=== PATIENT | male | born 1960 | race Caucasian/White ===

== ENCOUNTER 2017-05-25 19:41 | Inpatient (IN) ==
[2017-05-25] MEDS ORDERED: 0.9 % Sodium Chloride 1,000 ML IVC ONE ×2 (21:26→21:27)
[2017-05-25] MEDS ORDERED: Metoclopramide 10 MG/2 ML VIAL IVP ONE (21:27)
--- NOTE | 2017-05-25 21:39 | Emergency Department Note ---
Disposition Clinical Impression: Hypertensive emergency, Elevated troponin, Hypokalemia Headache Qualifiers: Headache type: unspecified Headache chronicity pattern: acute headache Intractability: not intractable Qualified Code(s): R51 - Headache Disposition: Admitted As Inpatient Condition: Fair Time of Disposition: 23:22 General Adult HPI - General Chief complaint: ED Headache Stated complaint: Headache x 2wks Time Seen by Provider: 05/25/17 21:02 Source: patient Limitations: no limitations Nursing Notes Reviewed: Yes Vital Signs Reviewed: Yes - History of Present Illness HPI Narrative: 57-year-old male past medical history of ischemic stroke, CAD, hypertension, chronic kidney disease, cataracts, type 2 diabetes mellitus, COPD this is an emergency department with a two-week history of headaches. Patient describes this as pain behind both of his eyes. Patient states is not typical for his usual headaches. Patient is not tried anything to make it feel better. Patient came in today because it started worsening last night. Patient is currently not taking any blood thinning medications. However, he is on Plavix. Patient reports having vision issues after her previous ischemic stroke. He states that his vision has not worsened over the last couple weeks. Pain Scale: 8 - Related Data Home Medications Medication Instructions Recorded Confirmed Amlodipine Besylate 10 mg PO DAILY 03/29/16 07/20/16 Atorvastatin [Lipitor] 40 mg PO HS 03/29/16 07/20/16 Carvedilol 12.5 mg PO BID 03/29/16 07/20/16 Chlorthalidone 25 mg PO DAILY 03/29/16 07/20/16 Furosemide [Lasix] 40 mg PO DAILY 03/29/16 07/20/16 Hydralazine HCl 25 mg PO BID 03/29/16 07/20/16 Losartan Potassium [Cozaar] 100 mg PO DAILY 03/29/16 07/20/16 Potassium Chloride [Klor-Con 20 meq PO BID 03/29/16 07/20/16 Sprinkle] Spironolactone [Aldactone] 50 mg PO DAILY 03/29/16 07/20/16 Citalopram [CeleXA] 40 mg PO DAILY 07/20/16 07/20/16 Fenofibrate [Lofibra] 160 mg PO DAILY 07/20/16 07/20/16 Allergies Allergy/AdvReac Type Severity Reaction Status Date / Time Penicillins AdvReac Hives Verified 04/04/15 16:43 All systems ED: reviewed and negative except as stated. Review of Systems: As Per HPI Eyes: Reports: eye pain Cardiovascular: Denies: chest pain, dyspnea on exertion Respiratory: Denies: dyspnea Gastrointestinal: Denies: nausea, vomiting Genitourinary: Denies: hematuria Integumentary: Denies: rash Neurological: Reports: headache. Denies: numbness, paresthesias Past Medical History - Past Medical History Medical history: Reports: coronary artery disease, CVA, diabetes, hyperlipidemia , hypertension, myocardial infarction, renal disease, other Surgical history: Reports: cataract Psychiatric history: Reports: no psych history - Social History Smoking Status: Former smoker Smokeless Tobacco Status: No Alcohol use: Reports: none Drug use: Reports: none Physical Exam General: Well Appearing obese 57-year-old male, in no acute distress Head: autraumatic, EOMI, no conjuncitval pallor, no scleral icterus,, no tenderness of the temporal arteries, intraocular pressures and left eye 25, right eye 22 Mouth: oral mucous membranes moist Neck: neck soft, trachea midline Chest:: Equal chest wall rise Lungs: Normal lungs sounds bilaterally, no wheezes, no respiratory distress Heart: normal heart sounds, normal rate and rhythm, Abdomen: soft, obese, non-tender, no rigidity, no guarding, no rebdound tenderness Lower Extremities: no pedal edema, calves non-tender Integumentary: Skin warm, dry, and intact Neuro: Alert and oriented to person, place, time, cranial nerves II through XII grossly intact, no pronator drift, strength 5 out of 5 in upper and lower shoulders bilaterally, sensation intact throughout. Psych: normal affect, normal mood - General Limitations: no limitations General appearance: alert, in no apparent distress Course Vital Signs Temperature 97.8 F 05/25/17 19:44 Pulse Rate 76 05/25/17 19:44 Respiratory Rate 21 05/25/17 19:44 Blood Pressure 222/94 05/25/17 19:44 O2 Sat by Pulse Oximetry 90 05/25/17 19:44 Temperature 97.8 F 05/25/17 19:44 Pulse Rate 61 05/25/17 22:41 Respiratory Rate 18 05/25/17 23:25 Blood Pressure 193/105 05/25/17 23:25 O2 Sat by Pulse Oximetry 92 05/25/17 22:41 Oxygen Delivery Oxygen Delivery Room Air Medical Decision Making - MDM Narrative Medical decision making narrative: 57-year-old male presents to the emergency department hypertensive and with a headache. Echocardiogram did not reveal any ischemic changes, but did reveal some nonspecific changes. Patient initial blood pressure was 222/94. There was fear that this patient may have had an ischemic stroke so we obtained a CT scan of the head prior to lowering blood pressure. We also searched for end organ dysfunction. There was an elevated troponin of 0.10. He did not have any acute ischemic ST changes and denied any chest pain, pressure, tightness, shortness of breath. Patient had a creatinine of 1.86. This is actually a little bit improved from his baseline. Patient was not having any chest pain, pressure, tightness, dyspnea. CT scan did not reveal any intracranial abnormality. We started Lopressor 5 mg IV and his blood pressure dropped to 193 /105. Migraine cocktail was provided for the patient to help relieve his symptoms of headache. His headache resolved completely. Intraocular pressures were obtained to rule out acute angle closure glaucoma in these were elevated, but only mildly. There was no evidence of temporal arteritis as the patient's temporal arteries were not tender to palpation. I discussed admission with the hospitalist Dr. Cruz, and he agreed to accept the patient. He asked that we start a nicardipine drip to further manage this patient's hypertensive emergency and to keep his systolic goal between 150 and 180 mmHg.. We have done this and we also will address this patient's hypokalemia with 40 mEq of potassium. I discussed the plan of admission with the patient, daughter, and . They agree with the plan. Patient was hemodynamically stable with an improved blood pressure at time of admission. Patient's oxygen saturation is around 92% on room air. Patient denied having any shortness of breath. Patient states that he has been a smoker his entire life. I think this may be his baseline oxygen saturation. Head CT 05/25/17 21:19 IMPRESSION: No acute intracranial abnormality. D/ / Natasha Faustin MD / Natasha Faustin MD Interpreting Provider: Natasha Faustin MD Vital Signs Temperature 97.8 F 05/25/17 19:44 Pulse Rate 76 05/25/17 19:44 Respiratory Rate 21 05/25/17 19:44 Blood Pressure 222/94 05/25/17 19:44 O2 Sat by Pulse Oximetry 90 05/25/17 19:44 Temperature 97.8 F 05/25/17 19:44 Pulse Rate 61 05/25/17 22:41 Respiratory Rate 18 05/25/17 23:25 Blood Pressure 193/105 05/25/17 23:25 O2 Sat by Pulse Oximetry 92 05/25/17 22:41 Oxygen Delivery Oxygen Delivery Room Air - Medical Records Medical records reviewed: Yes I reviewed the patient's medical records. - Lab Data Lab results reviewed: Yes I reviewed the patient's lab results. Result diagrams: 05/25/17 21:33 05/25/17 21:33 Lab Results 05/25/17 05/25/17 05/25/17 Range/Units 21:33 21:33 21:33 WBC 6.1 (4.3-11.1) K/mcL RBC 4.75 (4.19-5.50) M/mcL Hgb 13.1 (12.9-16.9) g/dL Hct 38.4 (37.5-50.1) % MCV 80.8 L (83.0-100.0) fL MCH 27.6 L (28.0-33.3) pg MCHC 34.1 (31.6-35.5) g/dL RDW 14.3 (11.5-14.5) % Plt Count 177 (140-400) K/mcL MPV 9.7 (9.4-12.4) fL Immature Gran % 0.8 (0-4) % Seg Neutrophils % 65.3 % Lymphocytes % 22.3 % Monocytes % 8.4 % Eosinophils % 2.5 % Basophils % 0.7 % Neutrophils # 4.0 (1.6-8.9) K/mcL Lymphocytes # 1.4 (0.6-4.6) K/mcL Monocytes # 0.5 (0.0-1.3) K/mcL Eosinophils # 0.2 (0.0-0.6) K/mcL Basophils # 0.0 (0.0-0.2) K/mcL PT 9.6 (9.4-12.1) Seconds INR 0.9 APTT 27.4 (26.0-36.0) Seconds Sodium 138 (136-145) mEq/L Potassium 3.0 L (3.5-4.5) mEq/L Chloride 96 L (98-109) mEq/L Carbon Dioxide 31 H (19-29) mEq/L BUN 21 (8-26) mg/dL Creatinine 1.86 H (0.72-1.25) mg/dL Est GFR ( Amer) 46 L (> 60) Est GFR (Non-Af Amer) 38 L (> 60) BUN/Creatinine Ratio 11 (6-26) Glucose 342 H (70-99) mg/dL Calculated Osmolality 303 H (280-300) Calcium 9.3 (8.6-10.8) mg/dL Troponin I (0-0.03) ng/mL 05/25/17 Range/Units 21:33 WBC (4.3-11.1) K/mcL RBC (4.19-5.50) M/mcL Hgb (12.9-16.9) g/dL Hct (37.5-50.1) % MCV (83.0-100.0) fL MCH (28.0-33.3) pg MCHC (31.6-35.5) g/dL RDW (11.5-14.5) % Plt Count (140-400) K/mcL MPV (9.4-12.4) fL Immature Gran % (0-4) % Seg Neutrophils % % Lymphocytes % % Monocytes % % Eosinophils % % Basophils % % Neutrophils # (1.6-8.9) K/mcL Lymphocytes # (0.6-4.6) K/mcL Monocytes # (0.0-1.3) K/mcL Eosinophils # (0.0-0.6) K/mcL Basophils # (0.0-0.2) K/mcL PT (9.4-12.1) Seconds INR APTT (26.0-36.0) Seconds Sodium (136-145) mEq/L Potassium (3.5-4.5) mEq/L Chloride (98-109) mEq/L Carbon Dioxide (19-29) mEq/L BUN (8-26) mg/dL Creatinine (0.72-1.25) mg/dL Est GFR ( Amer) (> 60) Est GFR (Non-Af Amer) (> 60) BUN/Creatinine Ratio (6-26) Glucose (70-99) mg/dL Calculated Osmolality (280-300) Calcium (8.6-10.8) mg/dL Troponin I 0.10 H* (0-0.03) ng/mL - Radiology Data Radiology results reviewed: Yes I reviewed the patient's radiology results. - EKG Data EKG #1 EKG attestation: Yes I reviewed and interpreted this EKG. EKG results narrative: 21:28 Ventricular rate 66 bpm, OH interval 195 mg seconds, QRS duration 100 106, QT 391 ms, QTC 404 ms, left axis deviation. Sinus rhythm with a ventricular rate of 66 bpm. There is some ST segment changes on this electrocardiogram that are different from ones performed on May 14, 2016.
[2017-05-25 21:45] LABS: Basophils % 0.7 %; Eosinophils # 0.2 K/mcL (0.0-0.6); Eosinophils % 2.5 %; Hematocrit 38.4 % (37.5-50.1); Hemoglobin 13.1 g/dL (12.9-16.9); Immature Granulocytes % 0.8 % (0-4); Lymphocytes # 1.4 K/mcL (0.6-4.6); Lymphocytes % 22.3 %; Mean Corpuscular HGB Conc 34.1 g/dL (31.6-35.5); Mean Corpuscular Hemoglobin 27.6 pg (28.0-33.3); Mean Corpuscular Volume 80.8 fL (83.0-100.0); Mean Platelet Volume 9.7 fL (9.4-12.4); Monocytes # 0.5 K/mcL (0.0-1.3); Monocytes % 8.4 %; Platelet Count 177 K/mcL (140-400); Red Blood Count 4.75 M/mcL (4.19-5.50); Red Cell Distribution Width 14.3 % (11.5-14.5); Segmented Neutrophils % 65.3 %
[2017-05-25 21:48] LABS: INR 0.9; Prothrombin Time 9.6 Seconds (9.4-12.1)
[2017-05-25 21:50] LABS: Activated Partial Thrombo Time 27.4 Seconds (26.0-36.0)
[2017-05-25 21:54] LABS: Calcium 9.3 mg/dL (8.6-10.8)
[2017-05-25] MEDS ORDERED: Tetracaine 0.5% OPTH 80 DROP/4 ML BOTTLE LEFT EYE ONE (21:56)
--- NOTE | 2017-05-25 22:02 | Emergency Department Note ---
START Narrative - START START: I examined this patient and my medical decision-making was reviewed with the Resident Physician. I agree with the documented findings, disposition and treatment plan as described except to the extent set forth below. 57 year old male presents ot the ED with complaints of headache and HX of previous stroke and states that his headache is located behind his right eye and has known defeicts from his previous stroke that has left him with peripheral vision losss and state that his vision is becoming more blurry. Patinet states that he does have a hsitory fo HTN and that he typically runs 170 /90s. We will do a IOP on aptient to rule out acute angle glaucoma in additio nto cardiopylmonary lans and EKG/CXR with CTA brain for evalaution of his vasculture.
[2017-05-25] MEDS ORDERED: *HR* Metoprolol 5 MG/5 ML VIAL IVP ONE (22:30)
[2017-05-25] MEDS ORDERED: Potassium Citrate 10 MEQ TABLET.ER PO ONE (23:11)
[2017-05-25] MEDS ORDERED: niCARdipine 40 MG/200 ML MLS IVC SCH (23:15)
[2017-05-26] MEDS ORDERED: *HR* Morphine 2 MG/ML SYRINGE IVP PRN (03:37)
[2017-05-26] MEDS ORDERED: Ondansetron 4 MG/2 ML VIAL IVP PRN (03:37)
[2017-05-26] MEDS ORDERED: Naloxone 0.4 MG/ML INJ IVP PRN (03:37)
--- NOTE | 2017-05-26 04:06 | Internal Med History&Physical ---
<Bruno Mcdaniel - Last Filed: 05/26/17 03:57> Date of Encounter: 05/26/17 Time of Encounter: 03:57 Assessment and Plan (1) Hypertensive emergency Current visit: Yes Status: Acute - Initial BP of 222/94 in ED - Given labetalol 5 mg IV in ED total - Start on nicardipine gtt upon arrival to floors - Goal BP of 160-180 systolic today to prevent ischemia. - nicadipine gtt turned off around 0400 due to BP being in 150s. Will monitor and resume medications as necessary. - Consult to nephrology for hypertensive medication management. Pt on multiple HTN medications as outpatient, reports compliance. - Renal US in 2016 shows CKD with no apparent CARLOS. (2) Elevated troponin Current visit: Yes Status: Acute - Troponin elevated in ED at 0.10 - Likely secondary to demand ischemia in the setting of CKD - Will trend troponins, echo in AM. - History of NH with [facility] [place] in 04/07. EKG unremarkable. (3) Headache Current visit: Yes Status: Acute - Bilateral CHAPMAN likely secondary to hypertension. - Relieved in ED with migraine cocktail. - Continue pain control and lower BP as above. Qualifiers: Headache type: unspecified Headache chronicity pattern: acute headache Intractability: intractable Qualified Code(s): R51 - Headache (4) Hypokalemia Current visit: Yes Status: Acute - K of 3.0 in ED - Replenished in ED with 40 mEq. - Replace as necessary pending AM labs. (5) DVT prophylaxis Current visit: Yes Status: Acute - Holding anticoagulation while hypertensive for risk of CVA - SCDs. Internal Medicine - H&P: HPI Chief complaint: Eye pain Admitted From: Emergency Dept Plans for Post Hospital Care: Home History of present illness: Mr. Frederick is a 57 year old male with PMHx of CVA with residual right eye blurriness, NH, CKD, HTN presents to ED with a complaint of headache, blurry vision for the past couple weeks. He states that he has residual right sided blurriness from CVA however his experiences increased "eye strain" in the evenings, worse when he spends long days at the computer. He has also noticed a "pins and needles" feeling behind both his eyes in this time as well. These episodes self resolve when after a short time. He also admits to some mild nausea. He takes tylenol PM with some relief. He denies any symptoms of CP, SOB , change in bowel habits, recent illness, vomiting, increased LE edema. In the ED, he was noticed to be hypertensive at 222/94 despite being compliant on medications. Labs were also significant for Troponon 0.10 with no EKG changes , elevated creatinine however at his baseline, K of 3.0 and glucose of 300. CT head was done for concern of CVA, showed no acute process. Past Med Surg Social Fam HX - Past Medical History Medical history: coronary artery disease, CVA, diabetes, hyperlipidemia, hypertension, myocardial infarction, renal disease, TIA, other Psychiatric history: no psych history - Past Surgical History Surgical History: cataract - Social History Smoking Status: Former smoker Smokeless Tobacco Status: No Alcohol use: none Drug use: none - Family History Brother Adopted: No Family Member Ethnicity: Non- Living Status: Still Living Hx Family Cardiac Disorders: Yes (open heart, valves, HTN, NH, Hyperlipidemia) Hx Family Respiratory Disorders: No Hx Family Cancer: Yes (Hodgkins) Hx Family GI Disorders: No Hx Family Endocrine Disorder: Yes Hx Family Neuromuscular Disorders: No Hx Family Neurologic Disorders: Yes (CVA) Hx Family HEENT Disorders: Yes (Blindness) Hx Family Autoimmune Disorders: No Internal Medicine - H&P: Meds Amlodipine Besylate 10 mg PO DAILY 03/29/16 [History] Atorvastatin [Lipitor] 40 mg PO HS 03/29/16 [History] Carvedilol 12.5 mg PO BID 03/29/16 [History] Chlorthalidone 25 mg PO DAILY 03/29/16 [History] Furosemide [Lasix] 40 mg PO DAILY 03/29/16 [History] Hydralazine HCl 25 mg PO BID 03/29/16 [History] Losartan Potassium [Cozaar] 100 mg PO DAILY 03/29/16 [History] Potassium Chloride [Klor-Con Sprinkle] 20 meq PO BID 03/29/16 [History] Spironolactone [Aldactone] 50 mg PO DAILY 03/29/16 [History] Citalopram [CeleXA] 40 mg PO DAILY 07/20/16 [History] Fenofibrate [Lofibra] 160 mg PO DAILY 07/20/16 [History] Aspirin [Lo-Dose Aspirin EC] 81 mg PO DAILY 05/26/17 [History] 3 Allergy/AdvReac Type Severity Reaction Status Date / Time Penicillins AdvReac Hives Verified 04/04/15 16:43 All Systems PM: A 10-system review of systems was performed and is negative for pertinent findings except as documented above in the HPI. - Constitutional Constitutional: no chills, no fatigue, no fever(s), no lethargy, no weakness - EENT Eyes: blurry vision, change in vision, no pain, no photophobia - Cardiovascular Cardiovascular ROS IM: no chest pain, no diaphoresis, no dyspnea, no dyspnea on exertion, no edema, no lightheadedness, no palpitations, no syncope - Respiratory Respiratory: no cough, no dyspnea, no dyspnea on exertion, no wheezing - Gastrointestinal Gastrointestinal: no abdominal pain, no change in bowel habits, no constipation , no diarrhea, no hematochezia, no melena, no nausea, no vomiting - Musculoskeletal Musculoskeletal ROS IM: no muscle weakness, no numbness, no tingling - Neurological Neurological ROS: headache(s), no dizziness, no focal weakness, no numbness, no tingling, no weakness - Constitutional Vitals: Temp Pulse Resp BP Pulse Ox 97.8 F 74 18 159/96 92 05/25/17 19:44 05/26/17 03:48 05/25/17 23:25 05/26/17 03:48 05/25/17 22:41 Exam: Gen.: Vitals noted. No acute distress. AAOx3 HEENT: PERRL/EOMI, oropharynx clear, Normocephalic, atraumatic, MMM Cardiac: RRR, no murmur, +S1/S2 Pulmonary: CTA bilaterally, no wheezes, rales or rhonchi, equal chest expansion Abdomen: soft, nontender, BS noted, no guarding MSK: ROM intact, no joint swelling noted Extremities: no BLE edema, nontender calf, no cyanosis or clubbing Neuro: A&Ox3, moves all extremities, no focal deficits. NIH 0. Sensation intact. CN II-XII grossly intact bilaterally. Psych: Appropriate mood and behavior Internal Med - H&P Results - Labs CBC & Chem 7: 05/25/17 21:33 05/25/17 21:33 <Herbert Wesley - Last Filed: 05/26/17 05:32> Date of Encounter: 05/26/17 Time of Encounter: 05:11 Past Med Surg Social Fam HX - Past Medical History Attestation: Yes The following information was validated with the patient. Source: patient, old records reviewed Medical history: coronary artery disease, CVA - Past Surgical History Surgical History: cataract - Constitutional Constitutional: no chills, no fever(s) - EENT Eyes: blurry vision, change in vision Ears: no ear pain, no tinnitus Nose, mouth and throat: no nasal congestion, no sinus pressure, no sore throat - Cardiovascular Cardiovascular ROS IM: no chest pain, no dyspnea, no dyspnea on exertion, no edema - Respiratory Respiratory: no cough, no dyspnea, no hemoptysis - Gastrointestinal Gastrointestinal: no abdominal pain, no diarrhea, no nausea, no vomiting - Genitourinary Genitourinary ROS male: no dysuria, no flank pain, no hematuria - Integumentary Integumentary IM: no rash, no jaundice - Neurological Neurological ROS: headache(s), no dizziness, no focal weakness, no frequent falls, no numbness, no tingling, no weakness - Psychiatric Psychiatric: no anxiety, no depression - Endocrine Endocrine IM: no polydipsia, no polyuria - Hematologic/Lymphatic Hematologic/Lymphatic: no easy bruising, no lymphadenopathy - Allergic/Immunologic Allergic/Immunologic: no wheezing, no GI upset with certain foods - Constitutional Vitals: Temp Pulse Resp BP Pulse Ox 97.8 F 74 18 159/96 92 05/25/17 19:44 05/26/17 03:48 05/25/17 23:25 05/26/17 03:48 05/25/17 22:41 General appearance: Present: cooperative, A&O X 3, pleasant, no acute distress - Head Head exam: Present: atraumatic, normal inspection - Eye Eye exam: Present: EOMI, normal appearance, PERRL. Absent: scleral icterus Pupils: Present: normal accommodation - ENT ENT exam: Present: mucous membranes dry, normal exam - Neck Neck exam general surgery: Present: full ROM, supple. Absent: tenderness, nuchal rigidity - Expanded Neck Exam Neck exam: Absent: carotid bruit - Respiratory Respiratory exam: Present: CTAB. Absent: chest wall tenderness, rales, respiratory distress, rhonchi, wheezes - Cardiovascular Cardiovascular exam: Present: distant heart sounds, RRR, +S1, +S2. Absent: diastolic murmur, systolic murmur - GI/Abdominal GI/Abdominal exam: Present: normal bowel sounds, soft. Absent: hepatomegaly, mass, splenomegaly - Extremities Exam Extremities exam: Present: full ROM, warm, radial pulses palpable and symmetrical. Absent: calf tenderness, pedal edema, tenderness - Back Exam Back exam: Absent: CVA tenderness (L), CVA tenderness (R) - Neurological Exam Neurological exam: Present: alert, oriented X3, no focal deficits - Psychiatric Psychiatric exam: Present: normal affect, normal mood - Skin Skin exam: Present: dry, warm. Absent: rash Internal Med - H&P Results - Labs CBC & Chem 7: 05/26/17 04:49 05/25/17 21:33 Labs: Short CBC 05/26/17 Range/Units 04:49 WBC 7.0 (4.3-11.1) K/mcL Hgb 14.2 (12.9-16.9) g/dL Hct 41.4 (37.5-50.1) % Plt Count 198 (140-400) K/mcL Neutrophils # 5.0 (1.6-8.9) K/mcL - EKG Data -: EKG Interpreted by Myself - EKG Data Prior EKG available for review: yes When compared to previous EKG: there are significant changes EKG comments: 05/26/17 05:14 Sinus rhythm with some lateral ST-T flattening concerning for possible ischemia - Attending Attestation I discussed the patient [place], PMH, ROS, lab data, and exam findings with Dr. Mcdaniel. I then saw and examined patient independently as well. I called earlier and asked RN to stop Nicardipine drip as his SBP was down to 140's. I asked that his SBP be kept around 160-180. Currently, his BP is 154/80's. Patient states he feels much better and has minimal residual headache now compared to when he came to the ER. He has no CP or SOB. His vision is almost back to baseline. I reviewed his EKG and am concerned he has some subtle ischemic changes laterally. He denies any anginal symptoms, and the EKG changes along with troponin elevation are likely due to HTN emergency. We will trend troponins and check ECHO. I agree with nephrology consult. He may need cardiology consultation as well should his troponin continue to climb. I will also order a chest xray as I do not see that one was performed. Other than my comments above and noted exam findings, I agree with Dr. Mcdaniel's assessment and plan.
[2017-05-26] MEDS ORDERED: Dextrose Gel 15 GM PO PRN ×2 (04:08)
[2017-05-26] MEDS ORDERED: D5% in Water 1,000 ML IVC PRN (04:08)
[2017-05-26] MEDS ORDERED: *HR* Dextrose 50 % in Water (Syg) 50 ML SYRINGE IVP PRN (04:08)
[2017-05-26 04:59] LABS: Hematocrit 41.4 % (37.5-50.1); Hemoglobin 14.2 g/dL (12.9-16.9); Immature Granulocytes % 0.7 % (0-4); Lymphocytes % 18.9 %; Mean Corpuscular HGB Conc 34.3 g/dL (31.6-35.5); Mean Corpuscular Hemoglobin 27.5 pg (28.0-33.3); Mean Corpuscular Volume 80.2 fL (83.0-100.0); Mean Platelet Volume 10.1 fL (9.4-12.4); Platelet Count 198 K/mcL (140-400); Red Blood Count 5.16 M/mcL (4.19-5.50); Red Cell Distribution Width 14.4 % (11.5-14.5); Segmented Neutrophils % 71.8 %
[2017-05-26 05:00] LABS: Basophils % 0.6 %; Eosinophils # 0.1 K/mcL (0.0-0.6); Lymphocytes # 1.3 K/mcL (0.6-4.6); Monocytes # 0.4 K/mcL (0.0-1.3)
[2017-05-26 05:02] LABS: Hemoglobin A1C 10.4 %
[2017-05-26 05:13] LABS: Albumin 3.3 g/dL (3.5-5.0); Albumin/Globulin Ratio 0.9 (1.1-2.2); Bilirubin,Total 0.5 mg/dL (0.2-1.2); Calcium 9.5 mg/dL (8.6-10.8); Globulin 3.5 g/dL (2.4-3.5); Potassium 3.2 mEq/L (3.5-4.5); Total Protein 6.8 g/dL (6.0-8.3)
[2017-05-26] MEDS: *HR* Heparin 5,000 UNIT/ML VIAL SQ SCH ×3 (06:35→20:39)
[2017-05-26] MEDS: Aspirin Enteric Coated 81 MG Tablet PO SCH (08:00)
[2017-05-26] MEDS: Insulin LISPRO 300 UNITS/3 ML VIAL SQ SCH ×3 (08:00→16:41)
[2017-05-26] MEDS: Acetaminophen 325 MG TABLET PO PRN (08:05)
--- NOTE | 2017-05-26 09:02 | Internal Med Progress Note ---
Date of Encounter: 05/26/17 Time of Encounter: 09:00 - Assessment and plan (1) Hypertensive emergency Current Visit: Yes Status: Acute Assessment and plan: Will try to wean him off the Nicardipine gtt Started on all his PO meds - Coreg 12.5mg BID, Norvasc 10mg, Aldactone 50mg, Lasix 40mg dialy, Losartan 100mg, Inc Hydralazine to 25mg TID Will give hydralazine 10mg IV PRN cont on tele (2) Elevated troponin Current Visit: Yes Status: Acute Assessment and plan: mostly demand ischemia No acute EKG changes Asymptomatic Cont close monitoring Will keep BP under control Will get 2 D Echo (3) CKD (chronic kidney disease) stage 3, GFR 30-59 ml/min Current Visit: Yes Status: Acute (4) Systolic CHF, chronic Current Visit: Yes Status: Chronic Assessment and plan: stable not in exacerbation resumed all home meds (5) DM2 (diabetes mellitus, type 2) Current Visit: Yes Status: Acute Assessment and plan: on ISS + home insulin pump Counseled about diet modifications Qualifiers: Qualified Code(s): E11.22 - Type 2 diabetes mellitus with diabetic chronic kidney disease; N18.3 - Chronic kidney disease, stage 3 (moderate); N18.3 - Chronic kidney disease, stage 3 (moderate); Z79.4 - continuous churn buttermaker (current) use of insulin; Z79.4 - continuous churn buttermaker (current) use of insulin; Z79.4 - MCFP (current ) use of insulin; Z79.4 - MCFP (current) use of insulin (6) Hypokalemia Current Visit: Yes Status: Acute Assessment and plan: replace (7) DVT prophylaxis Current Visit: Yes Status: Acute Assessment and plan: on Heparin SQ - Subjective Interval history: Mr. Frederick is a 57 year old male with PMHx of CVA with residual right eye blurriness, [place], CKD, HTN presents to ED with a complaint of headache, blurry vision for the past couple weeks. He was admitted in the hospital with HTN emergency and elevated troponin. He stated he is feeling little better today. Denied any CP. Still on Nicardipine gtt. - Constitutional Vitals: Temp Pulse Resp BP Pulse Ox 98.4 F 73 16 156/86 95 05/26/17 07:41 05/26/17 07:41 05/26/17 07:41 05/26/17 07:41 05/26/17 07:41 General appearance: Present: cooperative, A&O X 3, pleasant, no acute distress - Head Head exam: Present: atraumatic, normal inspection - Neck Neck exam general surgery: Present: supple - Respiratory Respiratory exam: Present: decreased breath sounds. Absent: rales, respiratory distress, rhonchi, wheezes - Cardiovascular Cardiovascular exam: Present: RRR, +S1, +S2. Absent: diastolic murmur, gallop, rubs, systolic murmur - GI/Abdominal GI/Abdominal exam: Present: distended, soft. Absent: rebound, rigid - Extremities Exam Extremities exam: Present: pedal edema (trace). Absent: calf tenderness, tenderness - Back Exam Back exam: Absent: CVA tenderness (L), CVA tenderness (R) - Psychiatric Psychiatric exam: Present: normal affect, normal mood Internal Medicine: Result - Labs CBC & Chem 7: 05/26/17 04:49 05/26/17 04:49 - ABG Interpretation ABG results: PT/INR, D-dimer PT 9.6 Seconds (9.4-12.1) 05/25/17 21:33 Consult Discharge Plan - Plan Referrals: Jose A Hernandez MD [Primary Care Provider] -
[2017-05-26] MEDS: Furosemide 40 MG TABLET PO SCH (09:07)
[2017-05-26] MEDS: Fenofibrate 54 MG TABLET PO SCH (09:07)
[2017-05-26] MEDS: hydrALAZINE 25 MG TABLET PO SCH ×3 (09:07→20:39)
[2017-05-26] MEDS: amLODIPine 5 MG TABLET PO SCH (09:08)
--- NOTE | 2017-05-26 12:22 | Nephrology Consult Note ---
Date of Encounter: 05/26/17 Time of Encounter: 12:19 Assessment and Plan (1) Hypertensive emergency Current Visit: Yes Status: Acute Patient with a history of resistant hypertension. He comes in with symptomatic hypertension. He is better controlled on his home regimen. He has edema in his lower extremities and would benefit from additional diuresis. I have increased his furosemide to twice daily. We will need to closely monitor his renal function. I will also add amiloride tomorrow secondary to his hypokalemia. We will need to closely monitor potassium levels with 2 potassium sparing diuretics and supplemental potassium. The fact that the patient responded so well to his home antihypertensive regimen raises the question of whether or not he has been adherent to his medical regimen at home. (2) CKD (chronic kidney disease) stage 3, GFR 30-59 ml/min Current Visit: Yes Status: Acute Patient has stage [address] Art of [facility]. His renal function appears to be stable. Avoid nephrotoxins. Adjust medications for renal function. With increase of his diuretic will need to monitor his renal function closely. (3) DM2 (diabetes mellitus, type 2) Current Visit: Yes Status: Acute Patient with uncontrolled diabetes. His most recent hemoglobin A1c is 10.2. He would benefit from diabetes education. He would also benefit from weight loss. Management per primary team. Qualifiers: Qualified Code(s): E11.22 - Type 2 diabetes mellitus with diabetic chronic kidney disease; N18.3 - Chronic kidney disease, stage 3 (moderate); N18.3 - Chronic kidney disease, stage 3 (moderate); Z79.4 - intermediate manager (current) use of insulin; Z79.4 - intermediate manager (current) use of insulin; Z79.4 - intermediate manager (current ) use of insulin; Z79.4 - intermediate manager (current) use of insulin (4) Systolic CHF, chronic Current Visit: Yes Status: Chronic Patient with a history of cardiomyopathy. May be secondary to hypertension. His volume status is positive so I will increase his diuresis. Await repeat echocardiogram. (5) Hypokalemia Current Visit: Yes Status: Acute Replace potassium as needed. Magnesium is ordered. Patient is on potassium sparing diuretic. (6) Morbid obesity with BMI of 40.0-44.9, adult Current Visit: Yes Status: Acute Outpatient management. (7) Vitamin D deficiency Current Visit: Yes Status: Acute Ordered ergocalciferol 50,000 units weekly 12 weeks. This can be monitored on an outpatient basis. History of Present Illness - Reason for Consult Consult date: 05/26/17 accelerated hypertension - Chief Complaint Accelerated hypertesion. - History of Present Illness Mr. Frederick is a 57 yo man with a history of hypertension who presents for the evaluation of a headache and blurred vision and was found to have accelerated hypertension. He is followed by Dr. Art for CKD Stage 3 and hypertension. The patient reports he has been in his usual state of health, but has been having headaches more frequently, and that they of admission had some blurred vision. His instructed him to come to the hospital where he was found to have uncontrolled hypertension. The patient denies chest pain, or shortness of breath. He did have some nausea. He denies any other symptoms. He reports that he is compliant with his medications. Past Med Surg Social Fam HX - Past Medical History Medical history: coronary artery disease, CVA Psychiatric history: no psych history - Past Surgical History Surgical History: cataract - Social History Smoking Status: Former smoker Smokeless Tobacco Status: No Alcohol use: none Drug use: none - Family History Brother Adopted: No Family Member Ethnicity: Non- Living Status: Still Living Hx Family Cardiac Disorders: Yes (open heart, valves, HTN, ME, Hyperlipidemia) Hx Family Respiratory Disorders: No Hx Family Cancer: Yes (Hodgkins) Hx Family GI Disorders: No Hx Family Endocrine Disorder: Yes Hx Family Neuromuscular Disorders: No Hx Family Neurologic Disorders: Yes (CVA) Hx Family HEENT Disorders: Yes (Blindness) Hx Family Autoimmune Disorders: No Medications and Allergies Amlodipine Besylate 10 mg PO DAILY 03/29/16 [History] Atorvastatin [Lipitor] 40 mg PO HS 03/29/16 [History] Carvedilol 12.5 mg PO BID 03/29/16 [History] Chlorthalidone 25 mg PO DAILY 03/29/16 [History] Furosemide [Lasix] 40 mg PO DAILY 03/29/16 [History] Hydralazine HCl 25 mg PO BID 03/29/16 [History] Losartan Potassium [Cozaar] 100 mg PO DAILY 03/29/16 [History] Potassium Chloride [Klor-Con Sprinkle] 20 meq PO BID 03/29/16 [History] Spironolactone [Aldactone] 50 mg PO DAILY 03/29/16 [History] Citalopram [CeleXA] 40 mg PO DAILY 07/20/16 [History] Fenofibrate [Lofibra] 160 mg PO DAILY 07/20/16 [History] Aspirin [Lo-Dose Aspirin EC] 81 mg PO DAILY 05/26/17 [History] 3 Allergy/AdvReac Type Severity Reaction Status Date / Time Penicillins AdvReac Hives Verified 04/04/15 16:43 Review of Systems All Systems: reviewed and no additional remarkable complaints except as stated ( as documented in the HPI.) Exam - Vital Signs Vital signs: Initial Vital Signs Temp Pulse Resp BP Pulse Ox 97.8 F 76 21 222/94 90 05/25/17 19:44 05/25/17 19:44 05/25/17 19:44 05/25/17 19:44 05/25/17 19:44 Vital Signs - Last 8 Hours Temp Pulse Resp BP Pulse Ox 05/26/17 12:03 55 16 141/66 92 05/26/17 11:10 98.0 F 63 18 153/92 94 05/26/17 07:41 98.4 F 73 16 156/86 95 05/26/17 06:36 68 186/102 Intake and Output 05/25/17 05/26/17 05/26/17 23:59 07:59 15:59 Intake Total 360 / 360 Balance 360 / 360 Intake: Oral 360 / 360 Other: Meal Breakfast Percent of Meal Consumed 95% Blood Glucose* 190 226 - General Appearance General appearance: well-developed, well-nourished, obese EENT: ATNC Neck: supple Respiratory: clear Cardiology: edema (1+ edema in the bilateral lower extremity.), regular rate, regular rhythm Gastrointestinal: normoactive bowel sounds, no tenderness, obese Integumentary: warm and dry Neurologic: alert and oriented x3 Musculoskeletal: no cyanosis Psychiatric: mood/affect appropriate Results - Lab Results 05/26/17 04:49 05/26/17 04:49 Most recent lab results Calcium 9.5 mg/dL (8.6-10.8) 05/26/17 04:49 Consult Discharge Plan - Plan Referrals: Jose A Hernandez MD [Primary Care Provider] -
[2017-05-27 03:27] LABS: Basophils % 0.7 %; Eosinophils # 0.1 K/mcL (0.0-0.6); Eosinophils % 2.4 %; Hematocrit 38.2 % (37.5-50.1); Hemoglobin 12.7 g/dL (12.9-16.9); Immature Granulocytes % 0.7 % (0-4); Lymphocytes # 1.4 K/mcL (0.6-4.6); Lymphocytes % 23.3 %; Mean Corpuscular HGB Conc 33.2 g/dL (31.6-35.5); Mean Corpuscular Hemoglobin 27.1 pg (28.0-33.3); Mean Corpuscular Volume 81.4 fL (83.0-100.0); Mean Platelet Volume 10.2 fL (9.4-12.4); Monocytes # 0.5 K/mcL (0.0-1.3); Monocytes % 8.3 %; Neutrophils # 3.8 K/mcL (1.6-8.9); Platelet Count 165 K/mcL (140-400); Red Blood Count 4.69 M/mcL (4.19-5.50); Red Cell Distribution Width 14.6 % (11.5-14.5); Segmented Neutrophils % 64.6 %
[2017-05-27 03:34] LABS: Calcium 8.9 mg/dL (8.6-10.8); Magnesium 1.9 mg/dL (1.6-2.6); Potassium 3.2 mEq/L (3.5-4.5)
[2017-05-27] MEDS: *HR* Heparin 5,000 UNIT/ML VIAL SQ SCH ×3 (06:43→20:44)
[2017-05-27] MEDS: hydrALAZINE 25 MG TABLET PO SCH ×3 (08:06→20:44)
[2017-05-27] MEDS: amLODIPine 5 MG TABLET PO SCH (08:06)
[2017-05-27] MEDS: Fenofibrate 54 MG TABLET PO SCH (08:06)
[2017-05-27] MEDS: Aspirin Enteric Coated 81 MG Tablet PO SCH (08:06)
[2017-05-27] MEDS: Furosemide 40 MG TABLET PO SCH ×3 (08:07→16:50)
[2017-05-27] MEDS: Insulin LISPRO 300 UNITS/3 ML VIAL SQ SCH ×3 (08:22→16:50)
[2017-05-27] MEDS ORDERED: Magnesium Sulfate 1 GM in 0.9 % Sodium Chloride 50 ML IVPB ONE (08:38)
--- NOTE | 2017-05-27 09:28 | Internal Med Progress Note ---
Date of Encounter: 05/27/17 Time of Encounter: 09:24 - Assessment and plan (1) Hypertensive emergency Current Visit: Yes Status: Acute Assessment and plan: off the Nicardipine gtt since y/d Cont PO meds - Coreg 12.5mg BID, Norvasc 10mg, Aldactone 25mg, Losartan 100mg Inc Lasix to 40mg BID + also on another K + Sparing diuretic Amiloride added by Nephro BP is still fairly controlled So inc Hydralazine to 75mg TID Will give hydralazine 10mg IV PRN cont on tele Need a close f/u on his electrolytes by Nephro / PCP (2) Elevated troponin Current Visit: Yes Status: Acute Assessment and plan: mostly demand ischemia No acute EKG changes Asymptomatic Cont close monitoring Will keep BP under control 2 D Echo - P (3) CKD (chronic kidney disease) stage 3, GFR 30-59 ml/min Current Visit: Yes Status: Chronic (4) Systolic CHF, chronic Current Visit: Yes Status: Chronic Assessment and plan: stable not in exacerbation resumed all home meds (5) DM2 (diabetes mellitus, type 2) Current Visit: Yes Status: Acute Assessment and plan: on ISS + home insulin pump Counseled about diet modifications Qualifiers: Qualified Code(s): E11.22 - Type 2 diabetes mellitus with diabetic chronic kidney disease; N18.3 - Chronic kidney disease, stage 3 (moderate); N18.3 - Chronic kidney disease, stage 3 (moderate); Z79.4 - USP (current) use of insulin; Z79.4 - USP (current) use of insulin; Z79.4 - USP (current ) use of insulin; Z79.4 - intermediate accountant (current) use of insulin (6) Hypokalemia Current Visit: Yes Status: Acute Assessment and plan: On 2 K + Sparing diuretics + Losartan Still low K+ cont home med Kcl 20meq BID (7) DVT prophylaxis Current Visit: Yes Status: Acute Assessment and plan: on Heparin SQ - Subjective Interval history: Mr. Frederick is a 57 year old male with PMHx of CVA with residual right eye blurriness, HI, CKD, HTN presents to ED with a complaint of headache, blurry vision for the past couple weeks. He was admitted in the hospital with HTN emergency and elevated troponin. He stated he is feeling little better today. Denied any CP. Off the Nicardipine gtt since y/d. His BP still fairly controlled. No new complaints. - Constitutional Vitals: Temp Pulse Resp BP Pulse Ox 98.5 F 65 16 174/94 92 05/27/17 07:14 05/27/17 07:14 05/27/17 07:14 05/27/17 07:14 05/27/17 07:14 General appearance: Present: cooperative, A&O X 3, pleasant, no acute distress - Head Head exam: Present: atraumatic, normal inspection - Respiratory Respiratory exam: Present: decreased breath sounds, wheezes (mild). Absent: rales, respiratory distress, rhonchi - Cardiovascular Cardiovascular exam: Present: RRR, +S1, +S2. Absent: systolic murmur - GI/Abdominal GI/Abdominal exam: Present: normal bowel sounds, soft. Absent: rebound, rigid, tenderness - Extremities Exam Extremities exam: Present: pedal edema (trace). Absent: calf tenderness, tenderness - Back Exam Back exam: Absent: CVA tenderness (L), CVA tenderness (R) - Psychiatric Psychiatric exam: Present: normal affect, normal mood Internal Medicine: Result - Labs CBC & Chem 7: 05/27/17 03:02 05/27/17 03:02 Labs: Short CBC 05/27/17 Range/Units 03:02 WBC 5.9 (4.3-11.1) K/mcL Hgb 12.7 L D (12.9-16.9) g/dL Hct 38.2 (37.5-50.1) % Plt Count 165 (140-400) K/mcL Neutrophils # 3.8 (1.6-8.9) K/mcL BMP 05/27/17 03:02 Sodium 138 Potassium 3.2 L Chloride 98 Carbon Dioxide 35 H BUN 22 Creatinine 1.88 H Glucose 358 H Calcium 8.9 - ABG Interpretation ABG results: PT/INR, D-dimer PT 9.6 Seconds (9.4-12.1) 05/25/17 21:33 Consult Discharge Plan - Plan Referrals: Jose A Hernandez MD [Primary Care Provider] -
[2017-05-27] MEDS: aMILoride 5 MG TABLET PO SCH (10:00)
--- NOTE | 2017-05-27 10:39 | Nephrology Progress Note ---
Date of Encounter: 05/27/17 Time of Encounter: 10:36 - Assessment and Plan (1) Hypertensive emergency Current Visit: Yes Status: Acute Blood pressure is better controlled on his home medications. His blood pressure is not at goal. Will discontinue the spironolactone and see if the amiloride is better able to maintain normal potassium levels. May need to add back spironolactone on an outpatient basis. Furosemide has been increased to twice daily which should help with volume control. The patient would benefit from a low sodium diet along with weight loss. (2) CKD (chronic kidney disease) stage 3, GFR 30-59 ml/min Current Visit: Yes Status: Chronic Renal function seems to be stable. Will need to be monitored while on the increase diuretic. (3) DM2 (diabetes mellitus, type 2) Current Visit: Yes Status: Acute Goal hemoglobin A1c is less than 7.0. The patient would benefit from increased control of his diabetes. Qualifiers: Qualified Code(s): E11.22 - Type 2 diabetes mellitus with diabetic chronic kidney disease; N18.3 - Chronic kidney disease, stage 3 (moderate); N18.3 - Chronic kidney disease, stage 3 (moderate); Z79.4 - half-way (current) use of insulin; Z79.4 - ferry terminal agent (current) use of insulin; Z79.4 - ferry terminal agent (current ) use of insulin; Z79.4 - ferry terminal agent (current) use of insulin (4) Systolic CHF, chronic Current Visit: Yes Status: Chronic Per primary team. He seems to be volume positive. This should improve with increased diuresis. (5) Hypokalemia Current Visit: Yes Status: Acute Hypokalemia persist. Will change from spironolactone to amiloride. Continue oral supplementation of his potassium. Patient was given intravenous magnesium to increase his magnesium above 2.0. (6) Morbid obesity with BMI of 40.0-44.9, adult Current Visit: Yes Status: Acute Outpatient management. (7) Vitamin D deficiency Current Visit: Yes Status: Acute Await repeat vitamin D level. Subjective Principal diagnosis: Hypertension Interval history: Patient seen and evaluated. He has no complaints this am. He denies chest pain or shortness of breath. Objective - Vital Signs Vital signs: Vital Signs Temp Pulse Resp BP Pulse Ox 05/27/17 09:20 131/74 05/27/17 07:14 98.5 F 65 16 174/94 92 05/27/17 03:57 98.7 F 65 14 157/75 94 05/26/17 23:45 97.9 F 72 16 162/88 95 05/26/17 20:45 98.6 F 77 14 161/95 93 05/26/17 20:30 65 05/26/17 16:36 65 164/87 05/26/17 14:53 97.7 F 62 18 172/95 92 05/26/17 13:18 18 94 05/26/17 12:03 55 16 141/66 92 Intake and Output 05/27/17 05/27/17 05/27/17 00:59 07:59 15:59 Intake Total 120 / 120 Output Total Balance 120 / 120 Intake: Oral 120 / 120 Output: Urine Other: Meal Breakfast Percent of Meal Consumed 100% Blood Glucose* 261 - General Appearance General appearance: Present: well-developed, well-nourished, obese EENT: Present: ATNC Neck: Present: supple Respiratory: Present: clear Cardiology: Present: edema, regular rate Gastrointestinal: Present: obese Integumentary: Present: warm and dry Neurologic: Present: alert and oriented x3 Musculoskeletal: Present: no cyanosis Psychiatric: Present: mood/affect appropriate - Lab 05/27/17 03:02 05/27/17 03:02 Most recent lab results Calcium 8.9 mg/dL (8.6-10.8) 05/27/17 03:02 Magnesium 1.9 mg/dL (1.6-2.6) 05/27/17 03:02 Consult Discharge Plan - Plan Referrals: Jose A Hernandez MD [Primary Care Provider] -
[2017-05-27] MEDS: Acetaminophen 325 MG TABLET PO PRN (21:55)
[2017-05-27] MEDS: *HR* HYDROcodone/Acet 5/325 mg TABLET PO PRN (23:39)
[2017-05-28 04:50] LABS: Potassium 3.5 mEq/L (3.5-4.5)
[2017-05-28 04:51] LABS: Calcium 9.2 mg/dL (8.6-10.8); Magnesium 2.1 mg/dL (1.6-2.6)
[2017-05-28] MEDS: *HR* Heparin 5,000 UNIT/ML VIAL SQ SCH ×3 (06:30→21:09)
--- NOTE | 2017-05-28 07:06 | Electrocardiograph Report ---
[place] [address] Test Date: 2017-05-25 Pat Name: Arpit Frederick Department: 102 Room: 2N02 Gender: M Clearance Coordinator: Ekp : 1960 Requested By: Fabian Ward Order Number: [id number] Reading MD: Bernardo Brooks DO Measurements Intervals [place] Rate: 66 P: 8 [place]: 195 QRS: -25 QRSD: 101 T: 99 QT: 391 QTc: 404 Interpretive Statements SINUS RHYTHM MODERATE VOLTAGE CRITERIA FOR LVH, CONSIDER NORMAL VARIANT INFERIOR MYOCARDIAL INFARCTION, PROBABLY OLD NONSPECIFIC ST-T CHANGES Electronically Signed On 05-28-2017 7:05:03 EST by Bernardo Brooks DO
[2017-05-28] MEDS: hydrALAZINE 25 MG TABLET PO SCH ×3 (08:06→21:09)
[2017-05-28] MEDS: Fenofibrate 54 MG TABLET PO SCH (08:06)
[2017-05-28] MEDS: aMILoride 5 MG TABLET PO SCH (08:07)
[2017-05-28] MEDS: Furosemide 40 MG TABLET PO SCH ×2 (08:07→17:21)
[2017-05-28] MEDS: amLODIPine 5 MG TABLET PO SCH (08:07)
[2017-05-28] MEDS: Aspirin Enteric Coated 81 MG Tablet PO SCH (08:07)
[2017-05-28] MEDS: Insulin LISPRO 300 UNITS/3 ML VIAL SQ SCH ×3 (08:12→17:22)
[2017-05-28] MEDS: Acetaminophen 325 MG TABLET PO PRN (11:40)
--- NOTE | 2017-05-28 12:15 | Nephrology Progress Note ---
Date of Encounter: 05/28/17 Time of Encounter: 12:15 - Assessment and Plan (1) Hypertensive emergency Current Visit: Yes Status: Acute (2) Hypokalemia Current Visit: Yes Status: Acute (3) CKD (chronic kidney disease) stage 3, GFR 30-59 ml/min Current Visit: Yes Status: Chronic Subjective Principal diagnosis: Hypertension Interval history: Interim noted, pt seen and examined with BP readings in the 140-160s systolic Objective - Vital Signs Vital signs: Vital Signs Temp Pulse Resp BP Pulse Ox 05/28/17 11:45 65 05/28/17 10:51 97.6 F 64 19 143/73 91 05/28/17 08:18 98.2 F 63 22 147/72 95 05/28/17 04:16 98.4 F 73 20 163/84 93 05/28/17 00:13 98.4 F 71 18 161/94 91 05/27/17 23:58 69 05/27/17 21:00 62 05/27/17 19:07 98.5 F 63 18 155/82 95 05/27/17 16:12 98.6 F 65 17 162/92 92 05/27/17 15:12 98.2 F 65 16 164/91 92 Intake and Output 05/27/17 05/28/17 05/28/17 23:59 07:59 15:59 Intake Total 1380 / 1380 Output Total 750 / 750 300 / 300 Balance -750 / -750 1080 / 1080 Intake: Oral 1380 / 1380 Output: Urine 750 / 750 300 / 300 Other: Meal Breakfast Percent of Meal Consumed 90% # Voids 1 Weight 124.7 kg Blood Glucose* 220 215 Patient Weight 05/28/17 23:59 Weight 124.7 kg - Lab 05/27/17 03:02 05/28/17 04:18 Most recent lab results Calcium 9.2 mg/dL (8.6-10.8) 05/28/17 04:18 Magnesium 2.1 mg/dL (1.6-2.6) 05/28/17 04:18 - VTE Documentation of Mechanical Device: Intermittent pneumatic compression device Consult Discharge Plan - Plan Referrals: Jose A Hernandez MD [Primary Care Provider] - 06/04/17 9:15 am
--- NOTE | 2017-05-28 12:19 | Internal Med Progress Note ---
Date of Encounter: 05/28/17 Time of Encounter: 10:40 - Assessment and plan (1) Hypertensive emergency Current Visit: Yes Status: Acute Assessment and plan: Hypertensive emergency is now improved - pressure now controlled Cont PO meds - Coreg 12.5mg BID, Norvasc 10mg, Amiloride 5 mg, Losartan 100mg, Hydralazine to 75mg TID Inc Lasix to 40mg BID Spironolactone has been discontinued by nephrology Nephrology consult - appreciate input, recommendations reviewed Continue telemetry, labs in a.m., monitor closely (2) Elevated troponin Current Visit: Yes Status: Acute Assessment and plan: Slightly elevated troponin likely secondary to demand ischemia - asymptomatic No acute EKG changes Cont close monitoring, Will keep BP under control Echocardiogram - LVEF 55-60%, mild segmental LV systolic dysfunction, normal RV function, mild LV diastolic dysfunction (3) CKD (chronic kidney disease) stage 3, GFR 30-59 ml/min Current Visit: Yes Status: Chronic Assessment and plan: Chronic and disease stage III, stable - creatinine and GFR at baseline Labs in the a.m. (4) Systolic CHF, chronic Current Visit: Yes Status: Chronic Assessment and plan: Mild segmental LV systolic dysfunction, LVEF 55-60% Normal RV function, no valvular dysfunction, mild LV diastolic dysfunction (5) DM2 (diabetes mellitus, type 2) Current Visit: Yes Status: Acute Assessment and plan: Type 2 diabetes mellitus, insulin-dependent, hyperglycemia - patient is on insulin pump Continue sliding scale, glucose checks Qualifiers: Diabetes mellitus complication status: with kidney complications Diabetes mellitus complication detail: with chronic kidney disease Diabetes mellitus custodial insulin use: without terminal makeup operator use Chronic kidney disease stage: stage 3 (moderate) Qualified Code(s): E11.22 - Type 2 diabetes mellitus with diabetic chronic kidney disease; N18.3 - Chronic kidney disease, stage 3 ( moderate); N18.3 - Chronic kidney disease, stage 3 (moderate) (6) Morbid obesity with BMI of 40.0-44.9, adult Current Visit: Yes Status: Chronic Assessment and plan: BMI 41.8 (7) DVT prophylaxis Current Visit: Yes Status: Acute Assessment and plan: Continue heparin subcutaneous - Time Spent With Patient 25 - 35 minutes - Subjective Interval history: Examined this morning. Patient is awake and alert. Not in any distress. Denies chest pain or shortness of breath. No fever. Hemodynamically stable. Blood pressure is now better controlled. No other acute events or complaints. Tolerating oral diet. Patient is also ambulating well. - Constitutional Vitals: Temp Pulse Resp BP Pulse Ox 97.6 F 65 19 143/73 91 05/28/17 10:51 05/28/17 11:45 05/28/17 10:51 05/28/17 10:51 05/28/17 10:51 General appearance: Present: cooperative, A&O X 3, morbidly obese, pleasant, no acute distress, answers questions appropriately - Head Head exam: Present: atraumatic - Eye Eye exam: Present: EOMI - ENT ENT exam: Present: mucous membranes moist - Respiratory Respiratory exam: Present: decreased breath sounds (Slightly decreased in both bases, otherwise clear to auscultation). Absent: rales, rhonchi, wheezes, tachypnea - Cardiovascular Cardiovascular exam: Present: RRR, +S1, +S2 - GI/Abdominal GI/Abdominal exam: Present: soft. Absent: distended, firm, guarding, tenderness - Extremities Exam Extremities exam: Present: pedal edema (Trace), radial pulses palpable and symmetrical. Absent: calf tenderness, cyanotic - Neurological Exam Neurological exam: Present: alert, oriented X3, no focal deficits. Absent: facial droop, speech deficit Internal Medicine: Result - Labs CBC & Chem 7: 05/27/17 03:02 05/28/17 04:18 Labs: BMP 05/28/17 04:18 Sodium 136 Potassium 3.5 Chloride 97 L Carbon Dioxide 33 H BUN 22 Creatinine 1.80 H Glucose 256 H Calcium 9.2 - ABG Interpretation ABG results: PT/INR, D-dimer PT 9.6 Seconds (9.4-12.1) 05/25/17 21:33 - VTE Documentation of Mechanical Device: Intermittent pneumatic compression device Consult Discharge Plan - Plan Referrals: Jose A Hernandez MD [Primary Care Provider] - 06/04/17 9:15 am
[2017-05-28] MEDS: *HR* HYDROcodone/Acet 5/325 mg TABLET PO PRN (22:43)
[2017-05-29 04:29] LABS: Calcium 8.8 mg/dL (8.6-10.8); Potassium 3.6 mEq/L (3.5-4.5)
[2017-05-29] MEDS: *HR* Heparin 5,000 UNIT/ML VIAL SQ SCH ×3 (04:55→21:09)
[2017-05-29] MEDS: *HR* HYDROcodone/Acet 5/325 mg TABLET PO PRN ×3 (07:26→23:59)
[2017-05-29] MEDS: aMILoride 5 MG TABLET PO SCH (07:27)
[2017-05-29] MEDS: Insulin LISPRO 300 UNITS/3 ML VIAL SQ SCH ×3 (08:55→17:25)
[2017-05-29] MEDS: hydrALAZINE 25 MG TABLET PO SCH ×3 (08:56→21:09)
[2017-05-29] MEDS: amLODIPine 5 MG TABLET PO SCH (08:56)
[2017-05-29] MEDS: Furosemide 40 MG TABLET PO SCH ×2 (08:56→17:25)
[2017-05-29] MEDS: Aspirin Enteric Coated 81 MG Tablet PO SCH (08:57)
[2017-05-29] MEDS: Fenofibrate 54 MG TABLET PO SCH (08:57)
--- NOTE | 2017-05-29 20:59 | Internal Med Progress Note ---
Date of Encounter: 05/29/17 Time of Encounter: 14:00 - Assessment and plan (1) Hypertensive emergency Current Visit: Yes Status: Acute Assessment and plan: Hypertensive emergency is now improved - pressure now controlled Cont PO meds - Coreg 12.5mg BID, Norvasc 10mg, Amiloride 5 mg, Losartan 100mg, Hydralazine to 75mg TID Continue with Lasix to 40mg BID Spironolactone has been discontinued by nephrology Nephrology consult - appreciate input, recommendations reviewed Continue telemetry, labs in a.m., monitor closely (2) Headache Current Visit: Yes Status: Acute Assessment and plan: Pain control with Tylenol and [place]. Qualifiers: Headache type: unspecified Headache chronicity pattern: acute headache Intractability: intractable Qualified Code(s): R51 - Headache (3) DM2 (diabetes mellitus, type 2) Current Visit: Yes Status: Acute Assessment and plan: Type 2 diabetes mellitus, insulin-dependent, hyperglycemia - patient is on insulin pump Continue sliding scale, glucose checks Qualifiers: Diabetes mellitus complication status: with kidney complications Diabetes mellitus complication detail: with chronic kidney disease Diabetes mellitus [facility] insulin use: without long term care pharmacist use Chronic kidney disease stage: stage 3 (moderate) Qualified Code(s): E11.22 - Type 2 diabetes mellitus with diabetic chronic kidney disease; N18.3 - Chronic kidney disease, stage 3 ( moderate); N18.3 - Chronic kidney disease, stage 3 (moderate) (4) Morbid obesity with BMI of 40.0-44.9, adult Current Visit: Yes Status: Chronic Assessment and plan: BMI 41.8. Outpatient weight loss regimen and lifestyle modification. - Subjective Interval history: Patient's blood pressure is better controlled today. He continues to report moderate dull frontal headache. No aggravating or alleviating factors. - Constitutional Vitals: Temp Pulse Resp BP Pulse Ox 98.2 F 65 18 153/88 92 05/29/17 20:50 05/29/17 20:50 05/29/17 20:50 05/29/17 20:50 05/29/17 20:50 General appearance: Present: cooperative, A&O X 3, morbidly obese, pleasant, no acute distress, answers questions appropriately - Neck Neck exam general surgery: Present: supple, trachea midline. Absent: lymphadenopathy - Respiratory Respiratory exam: Present: CTAB. Absent: accessory muscle use, rales, rhonchi, wheezes - Cardiovascular Cardiovascular exam: Present: RRR, +S1, +S2. Absent: diastolic murmur, gallop, rubs, systolic murmur - Neurological Exam Neurological exam: Present: CN II-XII intact, oriented X3, no focal deficits. Absent: pronater drift, facial droop, speech deficit Internal Medicine: Result - Labs CBC & Chem 7: 05/27/17 03:02 05/29/17 03:42 Labs: BMP 05/29/17 03:42 Sodium 141 Potassium 3.6 Chloride 98 Carbon Dioxide 34 H BUN 25 Creatinine 2.05 H Glucose 193 H Calcium 8.8 - ABG Interpretation ABG results: PT/INR, D-dimer PT 9.6 Seconds (9.4-12.1) 05/25/17 21:33 - VTE Documentation of Mechanical Device: Intermittent pneumatic compression device Consult Discharge Plan - Plan Referrals: Jose A Hernandez MD [Primary Care Provider] - 06/04/17 9:15 am
--- NOTE | 2017-05-29 23:31 | Nephrology Progress Note ---
Date of Encounter: 05/29/17 Time of Encounter: 11:30 - Assessment and Plan (1) Hypertensive emergency Current Visit: Yes Status: Acute BP significantly improved, continue current BP regimen including amiloride, which can be titrated up to 10mg daily if needed Counselled patient on low sodium diet on outpatient Will followup within [address] Art on discharge (2) Hypokalemia Current Visit: Yes Status: Acute Potassium normalized at 3.6, will monitor (3) CKD (chronic kidney disease) stage 3, GFR 30-59 ml/min Current Visit: Yes Status: Chronic SCr slightly worse today at 2.09, GFR 34 from 1.8, GFR 39 likely pre-renal with reduced UOP in the past 24hrs noted Encouraged adequate fluid intake Subjective Principal diagnosis: Hypertension Interval history: Interim noted, pt seen and examined with BP readings in the 130-150s systolic in the past 24hrs. at bedside. Pt eager to go home Objective - Vital Signs Vital signs: Vital Signs Temp Pulse Resp BP Pulse Ox 05/29/17 20:50 98.2 F 65 18 153/88 92 05/29/17 16:30 98.6 F 66 16 151/76 87 05/29/17 14:00 92 05/29/17 11:16 97.7 F 64 20 101/63 90 05/29/17 07:56 98.8 F 67 18 156/87 93 05/29/17 04:00 98 F 72 20 135/68 93 05/29/17 00:30 98.9 F 73 12 146/90 90 Intake and Output 05/29/17 05/29/17 05/29/17 07:59 15:59 23:59 Intake Total 100 / 100 240 / 240 Output Total 0 / 0 Balance 100 / 100 240 / 240 Intake: Oral 100 / 100 240 / 240 Output: Urine 0 / 0 Other: Meal Dinner Percent of Meal Consumed 80% # Voids 1 1 Weight 128.5 kg 129.21 kg Blood Glucose* 186 226 Patient Weight 05/29/17 23:59 Weight 129.21 kg - General Appearance General appearance: Present: well-developed, well-nourished EENT: Present: ATNC, mucous membranes moist Neck: Present: no JVD, supple Respiratory: Present: clear (ant bilat) Cardiology: Present: edema (trace LE bilat), normal S1, normal S2 Gastrointestinal: Present: no tenderness, no guarding Integumentary: Present: no rash Neurologic: Present: no focal deficit Musculoskeletal: Present: no deformities Psychiatric: Present: mood/affect appropriate, cooperative - Lab 05/27/17 03:02 05/29/17 03:42 Most recent lab results Calcium 8.8 mg/dL (8.6-10.8) 05/29/17 03:42 Magnesium 2.1 mg/dL (1.6-2.6) 05/28/17 04:18 - VTE Documentation of Mechanical Device: Intermittent pneumatic compression device Consult Discharge Plan - Plan Referrals: Jose A Hernandez MD [Primary Care Provider] - 06/04/17 9:15 am
[2017-05-30 05:19] LABS: Basophils % 0.6 %; Eosinophils # 0.1 K/mcL (0.0-0.6); Eosinophils % 0.9 %; Hematocrit 38.6 % (37.5-50.1); Hemoglobin 12.7 g/dL (12.9-16.9); Immature Granulocytes % 1.2 % (0-4); Lymphocytes # 1.2 K/mcL (0.6-4.6); Lymphocytes % 17.7 %; Mean Corpuscular HGB Conc 32.9 g/dL (31.6-35.5); Mean Corpuscular Hemoglobin 27.5 pg (28.0-33.3); Mean Corpuscular Volume 83.5 fL (83.0-100.0); Mean Platelet Volume 11.1 fL (9.4-12.4); Monocytes # 0.5 K/mcL (0.0-1.3); Neutrophils # 4.9 K/mcL (1.6-8.9); Platelet Count 169 K/mcL (140-400); Red Blood Count 4.62 M/mcL (4.19-5.50); Red Cell Distribution Width 14.7 % (11.5-14.5); Segmented Neutrophils % 71.6 %
[2017-05-30 05:40] LABS: Calcium 8.8 mg/dL (8.6-10.8); Potassium 3.9 mEq/L (3.5-4.5)
[2017-05-30] MEDS: *HR* Heparin 5,000 UNIT/ML VIAL SQ SCH (06:22)
[2017-05-30 07:07] VITALS: BP 152/70
[2017-05-30] MEDS: Fenofibrate 54 MG TABLET PO SCH (07:46)
[2017-05-30] MEDS: Furosemide 40 MG TABLET PO SCH (07:46)
[2017-05-30] MEDS: Aspirin Enteric Coated 81 MG Tablet PO SCH (07:46)
[2017-05-30] MEDS: amLODIPine 5 MG TABLET PO SCH (07:47)
[2017-05-30] MEDS: aMILoride 5 MG TABLET PO SCH (07:47)
[2017-05-30] MEDS: *HR* HYDROcodone/Acet 5/325 mg TABLET PO PRN (07:47)
[2017-05-30] MEDS: hydrALAZINE 25 MG TABLET PO SCH (07:47)
[2017-05-30] MEDS: Insulin LISPRO 300 UNITS/3 ML VIAL SQ SCH (07:48)
--- NOTE | 2017-05-30 10:31 | Discharge Summary ---
Date of Encounter: 05/30/17 Time of Encounter: 10:29 - Discharge Diagnosis (1) Hypertensive emergency Priority: Primary Status: Acute (2) Headache Priority: Secondary Status: Acute Qualifiers: Headache type: unspecified Headache chronicity pattern: acute headache Intractability: intractable Qualified Code(s): R51 - Headache (3) DM2 (diabetes mellitus, type 2) Priority: Secondary Status: Acute Qualifiers: Diabetes mellitus complication status: with kidney complications Diabetes mellitus complication detail: with chronic kidney disease Diabetes mellitus tank terminal gauger insulin use: without senior living use Chronic kidney disease stage: stage 3 (moderate) Qualified Code(s): E11.22 - Type 2 diabetes mellitus with diabetic chronic kidney disease; N18.3 - Chronic kidney disease, stage 3 ( moderate); N18.3 - Chronic kidney disease, stage 3 (moderate) (4) Morbid obesity with BMI of 40.0-44.9, adult Priority: Secondary Status: Chronic (5) Elevated troponin Priority: Secondary Status: Acute (6) CKD (chronic kidney disease) stage 3, GFR 30-59 ml/min Priority: Secondary Status: Chronic (7) Congestive heart failure Priority: Secondary Status: Acute Qualifiers: Congestive heart failure type: combined Congestive heart failure chronicity : chronic Qualified Code(s): I50.42 - Chronic combined systolic (congestive) and diastolic (congestive) heart failure - Discharge Medications Prescriptions: aMILoride [Midamor] 10 mg PO DAILY #60 tablet Hydralazine HCl 50 mg PO TID #90 tablet Home Medications: Amlodipine Besylate 10 mg PO DAILY 03/29/16 [History] Atorvastatin [Lipitor] 40 mg PO HS 03/29/16 [History] Carvedilol 12.5 mg PO BID 03/29/16 [History] Chlorthalidone 25 mg PO DAILY 03/29/16 [History] Furosemide [Lasix] 40 mg PO DAILY 03/29/16 [History] Losartan Potassium [Cozaar] 100 mg PO DAILY 03/29/16 [History] Potassium Chloride [Klor-Con Sprinkle] 20 meq PO BID 03/29/16 [History] Fenofibrate [Lofibra] 160 mg PO DAILY 07/20/16 [History] Aspirin [Lo-Dose Aspirin EC] 81 mg PO DAILY 05/26/17 [History] BuPROPion XL (24 HR) [Wellbutrin Xl] 150 mg PO DAILY 05/26/17 [History] CloNIDine HCl [Kapvay] 0.1 mg PO BID 05/26/17 [History] Hydralazine HCl 50 mg PO TID #90 tablet 05/30/17 [Rx] aMILoride [Midamor] 10 mg PO DAILY #60 tablet 05/30/17 [Rx] Allergies/Adverse Reactions: 3 Allergy/AdvReac Type Severity Reaction Status Date / Time Penicillins Allergy Hives Verified 05/26/17 15:57 Date of admission: 05/26/17 05:32 Primary care physician: Jose A Hernandez - Patient Status Disposition: Home, Self-Care Condition: Fair Functional capacity at discharge: independent ambulation Overall status at discharge: patient is back to baseline - Discharge Instructions Follow Up With: [facility] [Provider Group] - 06/07/17 3:45 pm Jose A Hernandez MD [Primary Care Provider] - 06/04/17 9:15 am - Diet and Activity Activity: increase activity as tolerated Diet: diabetic diet, low salt diet Hospital course: Mr. 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 Upon initial evaluation and his blood pressure was 222/94 despite reportedly being compliant with his medications. He was admitted to the medical service. A CT of the head was done and found no acute process. He was started on oral and IV antihypertensive medication for blood pressure control. Nephrology was consulted. They recommended increasing hydralazine, stopping spironolactone and adding amiloride. Currently his blood pressure is better controlled, his headache has improved. He will be discharged home and on a new antihypertensive medication regimen to include amiloride 10 mg and increase hydralazine dose of 50 mg 3 times a day. He was advised to keep good oral hydration and compliant with a low-sodium diet. He was advised to follow-up with PCP within 1 week of discharge. - Time Spent with Patient Total time spent providing and/or coordinating discharge services: - Constitutional Vitals: Temp Pulse Resp BP Pulse Ox 98.4 F 74 14 152/70 91 05/30/17 07:00 05/30/17 07:00 05/30/17 07:00 05/30/17 07:00 05/30/17 07:00 General appearance: Present: cooperative, A&O X 3, morbidly obese, pleasant, no acute distress, answers questions appropriately - Cardiovascular Cardiovascular exam: Present: RRR, +S1, +S2. Absent: diastolic murmur, gallop, rubs, systolic murmur - GI/Abdominal GI/Abdominal exam: Present: normal bowel sounds, soft, no peritoneal signs. Absent: distended, tenderness - Extremities Exam Extremities exam: Present: warm, radial pulses palpable and symmetrical. Absent : calf tenderness, cyanotic, pedal edema - Skin Skin exam: Present: dry, intact - VTE Documentation of Mechanical Device: Intermittent pneumatic compression device
== END 2017-05-30 11:50 | disposition home or self-care (01) | DRG 305 ==
LOC: EMEROO 19:41 → 2NENU 19:41 → 2NNU 23:38 → SUATTDRO 05-26 05:32 → 2NENU 05-29 07:14
PROVIDERS: ADMIT Pediatrics; ATTEND Internal Medicine

== ENCOUNTER 2017-10-08 17:25 | Inpatient (IN) ==
[2017-10-08 18:25] LABS: Basophils # 0.1 K/mcL (0.0-0.2); Basophils % 0.8 %; Eosinophils # 0.2 K/mcL (0.0-0.6); Hematocrit 37.2 % (37.5-50.1); Hemoglobin 12.2 g/dL (12.9-16.9); Immature Granulocytes % 1.2 % (0-4); Lymphocytes # 1.5 K/mcL (0.6-4.6); Lymphocytes % 20.4 %; Mean Corpuscular HGB Conc 32.8 g/dL (31.6-35.5); Mean Corpuscular Hemoglobin 26.5 pg (28.0-33.3); Mean Corpuscular Volume 80.9 fL (83.0-100.0); Mean Platelet Volume 9.5 fL (9.4-12.4); Monocytes # 0.6 K/mcL (0.0-1.3); Monocytes % 7.9 %; Platelet Count 229 K/mcL (140-400); Red Cell Distribution Width 14.4 % (11.5-14.5); Segmented Neutrophils % 67.7 %
[2017-10-08 18:51] LABS: Troponin I 0.03 ng/mL (< 0.04)
[2017-10-08 18:52] LABS: Calcium 9.1 mg/dL (8.6-10.3); Potassium 3.6 mEq/L (3.5-5.1)
--- NOTE | 2017-10-08 19:40 | Emergency Department Note ---
Disposition Clinical Impression: Congestive heart failure Qualifiers: Heart failure type: unspecified Heart failure chronicity: unspecified Qualified Code(s): I50.9 - Heart failure, unspecified Disposition: Admitted As Inpatient Condition: Fair General Adult HPI - General Chief complaint: ED Shortness of Breath/Dyspnea Stated complaint: "sent from cardiac rehab/fluid gain" Time Seen by Provider: 10/08/17 18:17 Source: patient Mode of arrival: private vehicle Limitations: no limitations Nursing Notes Reviewed: Yes Vital Signs Reviewed: Yes - History of Present Illness HPI Narrative: Arpit Frederick is a 57 year old male with past medical history of CVA 2012, CAD/ no IN, DM2, CKD stage 3 who presents from cardiac rehab clinic (attempted [place] prophylaxis by Dr. Corado) for 1 week of 11 lb weight gain and fluid retention. Patient reports bilateral leg swelling, increased orthopnea. He denies chest pain, fever/chills, recent travel, or immobilization. Onset (ago): hour(s) Pain Scale: 0 - Related Data Home Medications Medication Instructions Recorded Confirmed Amlodipine Besylate 10 mg PO DAILY 03/29/16 10/08/17 Atorvastatin [Lipitor] 40 mg PO HS 03/29/16 10/08/17 Carvedilol 25 mg PO BID 03/29/16 10/08/17 Chlorthalidone 25 mg PO DAILY 03/29/16 10/08/17 Furosemide [Lasix] 40 mg PO DAILY 03/29/16 10/08/17 Losartan Potassium [Cozaar] 100 mg PO DAILY 03/29/16 10/08/17 Potassium Chloride [Klor-Con 20 meq PO TID 03/29/16 10/08/17 Sprinkle] Fenofibrate [Lofibra] 160 mg PO DAILY 07/20/16 10/08/17 Aspirin [Lo-Dose Aspirin EC] 81 mg PO DAILY 05/26/17 10/08/17 BuPROPion XL (24 HR) [Wellbutrin 150 mg PO DAILY 05/26/17 10/08/17 Xl] Clopidogrel [Plavix] 75 mg PO DAILY 08/09/17 10/08/17 Fish Oil/Dha/Epa [Fish Oil 1,200 1 each PO DAILY 08/09/17 10/08/17 mg Fish Oil] Meloxicam 15 mg PO DAILY PRN 08/09/17 10/08/17 Tamsulosin HCl [Flomax] 0.4 mg PO DAILY 08/09/17 10/08/17 Acetaminophen [Tylenol Arthritis] 1,300 mg PO Q8H PRN 10/08/17 10/08/17 Cholecalciferol (D-3) [Vitamin D] 5,000 unit PO DAILY 10/08/17 10/08/17 Niacin [Niaspan] 1,000 mg PO DAILY 10/08/17 10/08/17 Subcutaneous Insulin Pump [T:Slim] 1 each MC AD 10/08/17 10/08/17 cloNIDine HCl [CloNIDine HCl] 0.1 mg PO BID 10/08/17 10/08/17 Previous Rx's Medication Instructions Recorded Hydralazine HCl 50 mg PO TID #90 tablet 05/30/17 aMILoride [Midamor] 10 mg PO DAILY #60 tablet 05/30/17 Allergies Allergy/AdvReac Type Severity Reaction Status Date / Time Penicillins Allergy Hives Verified 05/26/17 15:57 Constitutional: Denies: fever, chills Eyes: Denies: vision change ENT ED: Denies: congestion Cardiovascular: Reports: dyspnea on exertion, orthopnea. Denies: chest pain Respiratory: Denies: cough, wheezes, hemoptysis Gastrointestinal: Denies: abdominal pain, nausea, vomiting, diarrhea Neurological: Denies: headache Psychiatric: Denies: anxiety, depression Endocrine: Denies: fatigue Past Medical History - Past Medical History Medical history: Reports: arthritis, coronary artery disease, CVA, diabetes, hyperlipidemia, hypertension, myocardial infarction, renal disease Surgical history: Reports: cataract Psychiatric history: Reports: no psych history - Social History Smoking Status: Heavy tobacco smoker Smokeless Tobacco Status: No Alcohol use: Reports: none Drug use: Reports: none Physical Exam - General Limitations: no limitations General appearance: alert, in no apparent distress - Head Head exam: atraumatic, normocephalic - Eye Eye exam: Present: EOMI - ENT ENT exam: mucous membranes moist - Neck Neck exam: Present: full ROM - Chest Chest inspection: Present: symmetric chest wall rise - Respiratory Respiratory exam: Present: normal lung sounds bilaterally. Absent: respiratory distress, accessory muscle use - Cardiovascular Cardiovascular exam: Present: regular rate, normal rhythm. Absent: systolic murmur, diastolic murmur, JVD - Abdominal Exam Abdominal exam: Present: soft, Non-Tender. Absent: pulsatile mass - Extremities Exam Extremities exam: Present: pedal edema (+2 pitting edema). Absent: calf tenderness - Neurological Exam Neurological exam: Present: alert, oriented X3. Absent: motor sensory deficit - Psychiatric Psychiatric exam: Present: normal affect, normal mood - Skin Skin exam: Present: warm. Absent: cyanosis, diaphoresis Course Course Narrative: Patient on exam is mildly orthopneic, saturating well, +2 pitting edema, patient demonstrates pulmonary vascular congestion on CXR, BNP unremarkable. Last known LVEF assessed 2 years ago during diagnostic LHC (45%). Hospitalist agrees to admit patient for evaluation and treatment for CHF exacerbation. Patient and understand and in agreement. Vital Signs Temperature 99.8 F H 10/08/17 17:33 Pulse Rate 75 10/08/17 17:33 Respiratory Rate 18 10/08/17 17:33 Blood Pressure 133/87 10/08/17 17:33 O2 Sat by Pulse Oximetry 96 10/08/17 17:33 Temperature 99.8 F H 10/08/17 17:33 Pulse Rate 75 10/08/17 17:33 Respiratory Rate 18 10/08/17 17:33 Blood Pressure 133/87 10/08/17 17:33 O2 Sat by Pulse Oximetry 96 10/08/17 17:33 Oxygen Delivery Oxygen Delivery Room Air Medical Decision Making - Medical Records Medical records reviewed: Yes I reviewed the patient's medical records. - Lab Data Lab results reviewed: Yes I reviewed the patient's lab results. Result diagrams: 10/08/17 18:11 10/08/17 18:11 Lab Results 10/08/17 10/08/17 10/08/17 Range/Units 18:11 18:11 18:11 WBC 7.4 (4.3-11.1) K/mcL RBC 4.60 (4.19-5.50) M/mcL Hgb 12.2 L (12.9-16.9) g/dL Hct 37.2 L (37.5-50.1) % MCV 80.9 L (83.0-100.0) fL MCH 26.5 L (28.0-33.3) pg MCHC 32.8 (31.6-35.5) g/dL RDW 14.4 (11.5-14.5) % Plt Count 229 (140-400) K/mcL MPV 9.5 (9.4-12.4) fL Immature Gran % 1.2 (0-4) % Seg Neutrophils % 67.7 % Lymphocytes % 20.4 % Monocytes % 7.9 % Eosinophils % 2.0 % Basophils % 0.8 % Neutrophils # 5.0 (1.6-8.9) K/mcL Lymphocytes # 1.5 (0.6-4.6) K/mcL Monocytes # 0.6 (0.0-1.3) K/mcL Eosinophils # 0.2 (0.0-0.6) K/mcL Basophils # 0.1 (0.0-0.2) K/mcL Sodium 140 (136-145) mEq/L Potassium 3.6 (3.5-5.1) mEq/L Chloride 104 (98-107) mEq/L Carbon Dioxide 28 (23-29) mEq/L BUN 23 H (6-20) mg/dL Creatinine 2.20 H (0.70-1.30) mg/dL Est GFR ( Amer) 38 L (> 60) Est GFR (Non-Af Amer) 31 L (> 60) BUN/Creatinine Ratio 10 (6-26) Glucose 173 H (70-105) mg/dL Calculated Osmolality 298 (280-300) Lactic Acid (0.5-2.2) mmol/L Calcium 9.1 (8.6-10.3) mg/dL Troponin I 0.03 (< 0.04) ng/mL B-Natriuretic Peptide 116 H (Less than 100) pg/mL Specimen Rejected 10/08/17 10/08/17 Range/Units 18:11 19:13 WBC (4.3-11.1) K/mcL RBC (4.19-5.50) M/mcL Hgb (12.9-16.9) g/dL Hct (37.5-50.1) % MCV (83.0-100.0) fL MCH (28.0-33.3) pg MCHC (31.6-35.5) g/dL RDW (11.5-14.5) % Plt Count (140-400) K/mcL MPV (9.4-12.4) fL Immature Gran % (0-4) % Seg Neutrophils % % Lymphocytes % % Monocytes % % Eosinophils % % Basophils % % Neutrophils # (1.6-8.9) K/mcL Lymphocytes # (0.6-4.6) K/mcL Monocytes # (0.0-1.3) K/mcL Eosinophils # (0.0-0.6) K/mcL Basophils # (0.0-0.2) K/mcL Sodium (136-145) mEq/L Potassium (3.5-5.1) mEq/L Chloride (98-107) mEq/L Carbon Dioxide (23-29) mEq/L BUN (6-20) mg/dL Creatinine (0.70-1.30) mg/dL Est GFR ( Amer) (> 60) Est GFR (Non-Af Amer) (> 60) BUN/Creatinine Ratio (6-26) Glucose (70-105) mg/dL Calculated Osmolality (280-300) Lactic Acid 0.5 (0.5-2.2) mmol/L Calcium (8.6-10.3) mg/dL Troponin I (< 0.04) ng/mL B-Natriuretic Peptide (Less than 100) pg/mL Specimen Rejected Hemolyzed - Radiology Data Radiology results reviewed: Yes I reviewed the patient's radiology results. Chest X-Ray 10/08/17 17:36 IMPRESSION: Findings suggest congestive heart failure D/ / Phil Nina MD / Phil Nina MD Interpreting Provider: Phil Nina MD - EKG Data EKG #1 EKG attestation: Yes I reviewed and interpreted this EKG. EKG results narrative: ECG obtained 1739. NSR at 71bpm, normal variant axis. ECG shows no st elevation or depression. No t wave inversions.
--- NOTE | 2017-10-08 19:46 | Emergency Department Note ---
START Narrative - START START: I examined this patient and my medical decision-making was reviewed with the Resident Physician. I agree with the documented findings, disposition and treatment plan as described except to the extent set forth below. 57-year-old male presents emergency room from the cardiac rehabilitation facility for increase in weight as well as increasing dyspnea on exertion and increasing fatigue. Patient has known congestive heart failure noted on heart In the past. He is gained approximately 11 pounds in the past week with increasing dyspnea on exertion. He states he is unable to walk as far as what he normally can as he is getting more short of breath and increasing fatigue. Chest x-ray per radiology shows evidence of congestive heart failure however his BNP does not show that. Patient needs to be admitted for further workup per cardiology.
[2017-10-08] MEDS ORDERED: Naloxone 0.4 MG/ML INJ IVP PRN (22:45)
[2017-10-08] MEDS ORDERED: Acetaminophen 325 MG TABLET PO PRN (22:45)
--- NOTE | 2017-10-08 22:59 | Internal Med History&Physical ---
Date of Encounter: 10/08/17 Time of Encounter: 21:00 Assessment and Plan (1) CHF exacerbation Current visit: Yes Status: Acute Patient has history of CHF. Recent echo on May 2017 shows LVEF 55-60%. Patient had increased shortness of breath and leg swelling. Chest x-ray shows pulmonary congestion. BNP is mild elevated but patient is obese, the actual number should be higher. Qualifiers: Heart failure type: diastolic Qualified Code(s): I50.33 - Acute on chronic diastolic (congestive) heart failure (2) History of CVA (cerebrovascular accident) Current visit: Yes Status: Acute Continue home medication antiplatelet and statin (3) Hypertension Current visit: Yes Status: Acute Continue home medications Qualifiers: Hypertension type: essential hypertension Qualified Code(s): I10 - Essential (primary) hypertension (4) TANGELA (obstructive sleep apnea) Current visit: Yes Status: Acute Patient was prescribed CPAP but not used regularly. Will place patient on CPAP during night (5) DM2 (diabetes mellitus, type 2) Current visit: No Status: Acute Patient uses insulin pump at home. We will continue. 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 Diabetes mellitus complication status: with kidney complications Diabetes mellitus complication detail: with chronic kidney disease Chronic kidney disease stage : stage 3 (moderate) Qualified Code(s): E11.22 - Type 2 diabetes mellitus with diabetic chronic kidney disease; N18.3 - Chronic kidney disease, stage 3 ( moderate); N18.3 - Chronic kidney disease, stage 3 (moderate); Z79.4 - long-term (current) use of insulin; Z79.4 - intermediate designer (current) use of insulin; Z79.4 - intermediate designer (current) use of insulin; Z79.4 - intermediate designer (current) use of insulin (6) DVT prophylaxis Current visit: No Status: Acute Heparin subcutaneously (7) CKD (chronic kidney disease) stage 3, GFR 30-59 ml/min Current visit: No Status: Chronic Creatinine level is at about to baseline. Continue closely monitor patient. (8) Morbid obesity with BMI of 40.0-44.9, adult Current visit: No Status: Chronic Need lifestyle modification as outpatient Internal Medicine - H&P: HPI Chief complaint: Shortness of breath Admitted From: Home Plans for Post Hospital Care: Home History of present illness: Mr. Frederick is a 57 year old male with history of CKD, diabetes on insulin pump , CHF, obesity, history of CVA, legally blind bilaterally, TANGELA on CPAP, presented to ER for increased leg swelling and the shortness of breath in last 5 days. The shortness of breath is getting worse gradually. The patient would rather sleep on sitting position than laying flat. He has gained 10 pounds over last 2 months. Patient denies cough, fever, chest pain. Patient was admitted for CHF exacerbation Past Med Surg Social Fam HX - Past Medical History Medical history: arthritis, coronary artery disease, CVA, diabetes, hyperlipidemia, hypertension, myocardial infarction, renal disease Psychiatric history: no psych history - Past Surgical History Surgical History: cataract - Social History Smoking Status: Heavy tobacco smoker Smokeless Tobacco Status: No Alcohol use: none Drug use: none - Family History Brother Adopted: No Family Member Ethnicity: Non- Living Status: Hx Family Cardiac Disorders: Yes (CAD) Hx Family Respiratory Disorders: No Hx Family Cancer: Yes (Hodgkins dz) Hx Family GI Disorders: No Hx Family Endocrine Disorder: No Hx Family Neuromuscular Disorders: No Hx Family Neurologic Disorders: No Hx Family HEENT Disorders: Yes (blind in one eye) Hx Family Autoimmune Disorders: No Internal Medicine - H&P: Meds Amlodipine Besylate 10 mg PO DAILY 03/29/16 [History] Atorvastatin [Lipitor] 40 mg PO HS 03/29/16 [History] Carvedilol 25 mg PO BID 03/29/16 [History] Chlorthalidone 25 mg PO DAILY 03/29/16 [History] Furosemide [Lasix] 40 mg PO DAILY 03/29/16 [History] Losartan Potassium [Cozaar] 100 mg PO DAILY 03/29/16 [History] Potassium Chloride [Klor-Con Sprinkle] 20 meq PO TID 03/29/16 [History] Fenofibrate [Lofibra] 160 mg PO DAILY 07/20/16 [History] Aspirin [Lo-Dose Aspirin EC] 81 mg PO DAILY 05/26/17 [History] BuPROPion XL (24 HR) [Wellbutrin Xl] 150 mg PO DAILY 05/26/17 [History] Hydralazine HCl 50 mg PO TID #90 tablet 05/30/17 [Rx] aMILoride [Midamor] 10 mg PO DAILY #60 tablet 05/30/17 [Rx] Clopidogrel [Plavix] 75 mg PO DAILY 08/09/17 [History] Fish Oil/Dha/Epa [Fish Oil 1,200 mg Fish Oil] 1 each PO DAILY 08/09/17 [History] Meloxicam 15 mg PO DAILY PRN 08/09/17 [History] Tamsulosin HCl [Flomax] 0.4 mg PO DAILY 08/09/17 [History] Acetaminophen [Tylenol Arthritis] 1,300 mg PO Q8H PRN 10/08/17 [History] Cholecalciferol (D-3) [Vitamin D] 5,000 unit PO DAILY 10/08/17 [History] Niacin [Niaspan] 1,000 mg PO DAILY 10/08/17 [History] Subcutaneous Insulin Pump [T:Slim] 1 each MC AD 10/08/17 [History] cloNIDine HCl [CloNIDine HCl] 0.1 mg PO BID 10/08/17 [History] 3 Allergy/AdvReac Type Severity Reaction Status Date / Time Penicillins Allergy Hives Verified 05/26/17 15:57 All Systems PM: A 10-system review of systems was performed and is negative for pertinent findings except as documented above in the HPI. - Constitutional Vitals: Temp Pulse Resp BP Pulse Ox 98.8 F 72 18 179/78 91 10/08/17 21:39 10/08/17 21:39 10/08/17 21:39 10/08/17 21:39 10/08/17 21:39 General appearance: Present: A&O X 3, no acute distress, answers questions appropriately - Head Head exam: Present: atraumatic, normocephalic - Eye Eye exam: Present: PERRL, conjuntiva pink, sclera anicteric Pupils: Present: PERRL - Neck Neck exam general surgery: Present: supple, trachea midline. Absent: lymphadenopathy - Respiratory Respiratory exam: Present: CTAB. Absent: accessory muscle use, rales, rhonchi, wheezes - Cardiovascular Cardiovascular exam: Present: RRR, +S1, +S2. Absent: diastolic murmur, gallop, rubs, systolic murmur - GI/Abdominal GI/Abdominal exam: Present: normal bowel sounds, soft, no peritoneal signs. Absent: distended, tenderness - Extremities Exam Extremities exam: Present: pedal edema (Moderate pedal edema bilaterally), warm , radial pulses palpable and symmetrical. Absent: calf tenderness, cyanotic - Neurological Exam Neurological exam: Present: CN II-XII intact, oriented X3, no focal deficits. Absent: pronater drift, facial droop, speech deficit - Skin Skin exam: Present: dry, intact Internal Med - H&P Results - Labs CBC & Chem 7: 10/08/17 18:11 10/08/17 18:11
[2017-10-08] MEDS ORDERED: (Subcutaneous Insulin Pump [T:Slim] 1 EACH) MC SCH (23:00)
[2017-10-08] MEDS ORDERED: Nitroglycerin 1 INCH/GM PACKET TP PRN (23:06)
[2017-10-09] MEDS: Furosemide 40 MG/4 ML VIAL IVP SCH ×2 (04:09→09:41)
[2017-10-09] MEDS: cloNIDine HCl 0.1 MG TABLET PO SCH ×3 (04:10→20:21)
[2017-10-09] MEDS: hydrALAZINE 25 MG TABLET PO SCH ×4 (04:10→20:21)
[2017-10-09 05:26] LABS: Basophils # 0.1 K/mcL (0.0-0.2); Basophils % 0.8 %; Eosinophils # 0.2 K/mcL (0.0-0.6); Eosinophils % 2.1 %; Hematocrit 37.3 % (37.5-50.1); Immature Granulocytes % 1.1 % (0-4); Lymphocytes # 1.5 K/mcL (0.6-4.6); Lymphocytes % 21.8 %; Mean Corpuscular HGB Conc 32.2 g/dL (31.6-35.5); Mean Corpuscular Hemoglobin 26.1 pg (28.0-33.3); Mean Corpuscular Volume 81.1 fL (83.0-100.0); Monocytes # 0.6 K/mcL (0.0-1.3); Monocytes % 8.8 %; Neutrophils # 4.6 K/mcL (1.6-8.9); Platelet Count 212 K/mcL (140-400); Red Cell Distribution Width 14.3 % (11.5-14.5); Segmented Neutrophils % 65.4 %
[2017-10-09 05:43] LABS: Calcium 8.8 mg/dL (8.6-10.3)
[2017-10-09] MEDS: *HR* Heparin 5,000 UNIT/ML VIAL SQ SCH ×2 (06:16→17:20)
[2017-10-09] MEDS ORDERED: NIACIN 1000 MG PO SCH (09:00)
[2017-10-09] MEDS ORDERED: (Fish Oil 1,200 Mg Fish Oil] 1 EACH) PO SCH (09:00)
[2017-10-09] MEDS ORDERED: Subcutaneous Insulin Pump [T:Slim] SQ SCH (09:00)
[2017-10-09] MEDS ORDERED: NON-FORMULARY MEDICATION 1 EACH EACH (Hydralazine Hcl [Hydralazine Hcl] 50 MG) PO SCH (09:00)
[2017-10-09] MEDS ORDERED: cloNIDine HCl 0.1 MG TABLET PO SCH (09:00)
[2017-10-09] MEDS: aMILoride 5 MG TABLET PO SCH (09:39)
[2017-10-09] MEDS: amLODIPine 5 MG TABLET PO SCH (09:40)
[2017-10-09] MEDS: Cholecalciferol (D-3) 1,000 UNIT TABLET PO SCH (09:40)
[2017-10-09] MEDS: BuPROPion XL (24 HR) 150 MG TABLET PO SCH (09:41)
[2017-10-09] MEDS: Aspirin Enteric Coated 81 MG Tablet PO SCH (09:41)
[2017-10-09] MEDS: Fenofibrate 54 MG TABLET PO SCH (09:41)
[2017-10-09] MEDS ORDERED: Dextrose Gel 15 GM/37.5 ML TUBE PO PRN ×2 (10:40)
[2017-10-09] MEDS ORDERED: *HR* Dextrose 50 % in Water (Syg) 50 ML SYRINGE IVP PRN (10:40)
[2017-10-09] MEDS ORDERED: D5% in Water 1,000 ML IVC PRN (10:40)
--- NOTE | 2017-10-09 12:06 | Internal Med Progress Note ---
Date of Encounter: 10/09/17 Time of Encounter: 12:04 - Assessment and plan (1) CHF exacerbation Current Visit: Yes Status: Acute Assessment and plan: This is likely an acute exacerbation of diastolic heart failure. We will continue with IV diuresis. Wean down oxygen as tolerated. Continue beta elmer. Continue aspirin. Continue nebs. Monitor I&O's. Cardiac diet. Qualifiers: Heart failure type: diastolic Qualified Code(s): I50.33 - Acute on chronic diastolic (congestive) heart failure (2) DM2 (diabetes mellitus, type 2) Current Visit: No Status: Acute Assessment and plan: Patient uses an insulin pump. Continue Accu-Cheks. Qualifiers: Diabetes mellitus long term care social worker insulin use: with [facility] use Diabetes mellitus complication status: with kidney complications Diabetes mellitus complication detail: with chronic kidney disease Chronic kidney disease stage : stage 3 (moderate) Qualified Code(s): E11.22 - Type 2 diabetes mellitus with diabetic chronic kidney disease; N18.3 - Chronic kidney disease, stage 3 ( moderate); N18.3 - Chronic kidney disease, stage 3 (moderate); Z79.4 - long term care pharmacist (current) use of insulin; Z79.4 - penitentiary (current) use of insulin; Z79.4 - penitentiary (current) use of insulin; Z79.4 - long term care pharmacist (current) use of insulin (3) CKD (chronic kidney disease) stage 3, GFR 30-59 ml/min Current Visit: No Status: Chronic Assessment and plan: Creatinine seems to be around baseline. It improved somewhat with diuresis. (4) Morbid obesity with BMI of 40.0-44.9, adult Current Visit: No Status: Chronic Assessment and plan: Counseled (5) DVT prophylaxis Current Visit: No Status: Acute Assessment and plan: Heparin subcutaneous (6) Hypertension Current Visit: Yes Status: Acute Assessment and plan: Blood pressure adequately controlled. Patient is on multiple agents. Continue Coreg, Norvasc, clonidine, losartan, hydralazine, chlorthalidone. Qualifiers: Hypertension type: essential hypertension Qualified Code(s): I10 - Essential (primary) hypertension - Subjective Interval history: Patient was seen and examined. Afebrile. No chest pain. Shortness of breath is improved. Diuresed well. Admitted with acute hypoxic respiratory failure. Has lower extremity edema and weight gain. Being treated for CHF exacerbation. Last echo was in May 2017 with a preserved ejection fraction and mild diastolic dysfunction. - Constitutional Vitals: Temp Pulse Resp BP Pulse Ox 97.9 F 60 16 147/82 96 10/09/17 11:14 10/09/17 11:14 10/09/17 11:14 10/09/17 11:14 10/09/17 11:14 General appearance: Present: A&O X 3, no acute distress, answers questions appropriately Exam: GEN: NAD CVS: RRR. S1, S2, No m/r/g RESP: Diminished with bibasilar crackles. ABD: Soft, NT, ND, +BS EXT: 1+ lower extremity edema. 2+ DP, No rashes NEURO: Nonfocal Internal Medicine: Result - Labs CBC & Chem 7: 10/09/17 03:57 10/09/17 03:57 Labs: Short CBC 10/09/17 Range/Units 03:57 WBC 7.1 (4.3-11.1) K/mcL Hgb 12.0 L (12.9-16.9) g/dL Hct 37.3 L (37.5-50.1) % Plt Count 212 (140-400) K/mcL Neutrophils # 4.6 (1.6-8.9) K/mcL BMP 10/09/17 03:57 Sodium 142 Potassium 3.0 L Chloride 105 Carbon Dioxide 30 H BUN 20 Creatinine 1.95 H Glucose 87 Calcium 8.8 Consult Discharge Plan - Plan Referrals: Jose A Hernandez MD [Primary Care Provider] -
[2017-10-09] MEDS ORDERED: Ipratropium/Albuterol Neb 3 ML IH PRN (12:35)
[2017-10-09] MEDS ORDERED: Ipratropium/Albuterol Neb 3 ML IH SCH (16:00)
[2017-10-09] MEDS ORDERED: Niacin (24 HR) 500 MG TAB.ER.24H PO SCH (21:00)
--- NOTE | 2017-10-09 23:22 | Electrocardiograph Report ---
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
[2017-10-10 05:00] LABS: Basophils # 0.1 K/mcL (0.0-0.2); Basophils % 0.8 %; Eosinophils # 0.1 K/mcL (0.0-0.6); Eosinophils % 2.2 %; Hematocrit 36.9 % (37.5-50.1); Immature Granulocytes % 0.8 % (0-4); Lymphocytes # 1.5 K/mcL (0.6-4.6); Lymphocytes % 22.6 %; Mean Corpuscular HGB Conc 32.5 g/dL (31.6-35.5); Mean Corpuscular Hemoglobin 26.4 pg (28.0-33.3); Mean Corpuscular Volume 81.3 fL (83.0-100.0); Monocytes # 0.6 K/mcL (0.0-1.3); Monocytes % 9.4 %; Neutrophils # 4.2 K/mcL (1.6-8.9); Nucleated Red Blood Cells 0.3 /100 WBC (0); Platelet Count 205 K/mcL (140-400); Red Blood Count 4.54 M/mcL (4.19-5.50); Red Cell Distribution Width 14.4 % (11.5-14.5); Segmented Neutrophils % 64.2 %
[2017-10-10 05:04] LABS: Calcium 9.1 mg/dL (8.6-10.3); Magnesium 2.1 mg/dL (1.6-2.6); Potassium 3.4 mEq/L (3.5-5.1)
[2017-10-10] MEDS: *HR* Heparin 5,000 UNIT/ML VIAL SQ SCH (05:11)
[2017-10-10] MEDS ORDERED: *HR* Dextrose 50 % in Water (Syg) 50 ML SYRINGE IVP PRN (07:35)
[2017-10-10] MEDS ORDERED: D5% in Water 1,000 ML IVC PRN (07:35)
[2017-10-10] MEDS ORDERED: Dextrose Gel 15 GM/37.5 ML TUBE PO PRN ×2 (07:35)
[2017-10-10] MEDS: BuPROPion XL (24 HR) 150 MG TABLET PO SCH (09:58)
[2017-10-10] MEDS: Furosemide 40 MG/4 ML VIAL IVP SCH (09:58)
[2017-10-10] MEDS: Insulin LISPRO 300 UNITS/3 ML VIAL SQ SCH ×2 (09:58→12:11)
[2017-10-10] MEDS: Fenofibrate 54 MG TABLET PO SCH (09:58)
[2017-10-10] MEDS: Aspirin Enteric Coated 81 MG Tablet PO SCH (09:59)
[2017-10-10] MEDS: aMILoride 5 MG TABLET PO SCH (09:59)
[2017-10-10] MEDS: Cholecalciferol (D-3) 1,000 UNIT TABLET PO SCH (09:59)
[2017-10-10] MEDS: cloNIDine HCl 0.1 MG TABLET PO SCH (09:59)
[2017-10-10] MEDS: hydrALAZINE 25 MG TABLET PO SCH (09:59)
[2017-10-10] MEDS: amLODIPine 5 MG TABLET PO SCH (09:59)
[2017-10-10 11:15] VITALS: BP 157/78
--- NOTE | 2017-10-10 11:53 | Discharge Summary ---
- NOTES TO OUTPATIENT PROVIDER Notes to Outpatient Provider: I advised the pamela to take an extra dose of lasix on days he weighs >292 Ibs and to take an extra potassium pill on those days Date of Encounter: 10/10/17 Time of Encounter: 11:51 - Discharge Diagnosis (1) CHF exacerbation Priority: Primary Status: Acute Qualifiers: Heart failure type: diastolic Qualified Code(s): I50.33 - Acute on chronic diastolic (congestive) heart failure (2) DM2 (diabetes mellitus, type 2) Priority: Secondary Status: Acute Qualifiers: Diabetes mellitus terminal computer operator insulin use: with group home use Diabetes mellitus complication status: with kidney complications Diabetes mellitus complication detail: with chronic kidney disease Chronic kidney disease stage : stage 3 (moderate) Qualified Code(s): E11.22 - Type 2 diabetes mellitus with diabetic chronic kidney disease; N18.3 - Chronic kidney disease, stage 3 ( moderate); N18.3 - Chronic kidney disease, stage 3 (moderate); Z79.4 - long term acute care registered nurse (current) use of insulin; Z79.4 - long term acute care registered nurse (current) use of insulin; Z79.4 - long term acute care registered nurse (current) use of insulin; Z79.4 - long term acute care registered nurse (current) use of insulin (3) CKD (chronic kidney disease) stage 3, GFR 30-59 ml/min Priority: Secondary Status: Chronic (4) Morbid obesity with BMI of 40.0-44.9, adult Priority: Secondary Status: Chronic (5) Hypertension Priority: Secondary Status: Acute Qualifiers: Hypertension type: essential hypertension Qualified Code(s): I10 - Essential (primary) hypertension Hospital course: Mr. Frederick is a 57 year old male with history of CKD, diabetes on insulin pump , CHF, obesity, history of CVA, legally blind bilaterally, TANGELA on CPAP, presented to ER for increased leg swelling and the shortness of breath in last 5 days. The shortness of breath was getting worse gradually. The patient would rather sleep on sitting position than laying flat. He has gained 10 pounds over last 2 months. Chest x-ray showed findings of CHF.. Patient was admitted for acute diastolic CHF exacerbation. He was diuresed 4 couple days of IV Lasix 40 mg. He had good response with diuresis. He was on room air. He still had somewhat of about trace to 1+ edema in the lower extremities and I advised him to take an extra dose of Lasix 40 mg tomorrow at home. He is being discharged today and I counseled him on low salt intake. Patient is advised to take an extra dose of 40 mg Lasix he weighs more than 292 pounds in the morning. He is also to take an extra dose of potassium supplements that he is on on days that he takes an extra dose of Lasix. - Time Spent with Patient Total time spent providing and/or coordinating discharge services: Greater than 30 minutes - Discharge Medications Home Medications: Amlodipine Besylate 10 mg PO DAILY 03/29/16 [History] Atorvastatin [Lipitor] 40 mg PO HS 03/29/16 [History] Carvedilol 25 mg PO BID 03/29/16 [History] Chlorthalidone 25 mg PO DAILY 03/29/16 [History] Furosemide [Lasix] 40 mg PO DAILY 03/29/16 [History] Losartan Potassium [Cozaar] 100 mg PO DAILY 03/29/16 [History] Potassium Chloride [Klor-Con Sprinkle] 20 meq PO TID 03/29/16 [History] Fenofibrate [Lofibra] 160 mg PO DAILY 07/20/16 [History] Aspirin [Lo-Dose Aspirin EC] 81 mg PO DAILY 05/26/17 [History] BuPROPion XL (24 HR) [Wellbutrin Xl] 150 mg PO DAILY 05/26/17 [History] Hydralazine HCl 50 mg PO TID #90 tablet 05/30/17 [Rx] aMILoride [Midamor] 10 mg PO DAILY #60 tablet 05/30/17 [Rx] Clopidogrel [Plavix] 75 mg PO DAILY 08/09/17 [History] Fish Oil/Dha/Epa [Fish Oil 1,200 mg Fish Oil] 1 each PO DAILY 08/09/17 [History] Meloxicam 15 mg PO DAILY PRN 08/09/17 [History] Tamsulosin HCl [Flomax] 0.4 mg PO DAILY 08/09/17 [History] Acetaminophen [Tylenol Arthritis] 1,300 mg PO Q8H PRN 10/08/17 [History] Cholecalciferol (D-3) [Vitamin D] 5,000 unit PO DAILY 10/08/17 [History] Niacin [Niaspan] 1,000 mg PO DAILY 10/08/17 [History] Subcutaneous Insulin Pump [T:Slim] 1 each MC AD 10/08/17 [History] cloNIDine HCl [CloNIDine HCl] 0.1 mg PO BID 10/08/17 [History] Allergies/Adverse Reactions: 3 Allergy/AdvReac Type Severity Reaction Status Date / Time Penicillins Allergy Hives Verified 05/26/17 15:57 Date of admission: 10/08/17 22:45 Primary care physician: Jose A Hernandez - Constitutional Vitals: Temp Pulse Resp BP Pulse Ox 97.6 F 69 18 157/78 94 10/10/17 11:11 10/10/17 11:11 10/10/17 11:11 10/10/17 11:11 10/10/17 11:11 General appearance: Present: A&O X 3, no acute distress, answers questions appropriately Exam: GEN: NAD CVS: RRR. S1, S2, No m/r/g RESP: Diminished with bibasilar crackles. ABD: Soft, NT, ND, +BS EXT: 1+ lower extremity edema. 2+ DP, No rashes NEURO: Nonfocal - Patient Status Disposition: Home, Self-Care Condition: Fair Overall status at discharge: patient is progressing back to baseline - Discharge Instructions Instructions: Heart Failure (DC) Follow Up With: Jose A Hernandez MD [Primary Care Provider] - 10/11/17 4:30 pm (Please follow up schedule...) Additional Instructions: Take an extra lasix dose tomorrow 10/11 and an extra potassium dose as well on . Starting 10/12, weigh yourself every morning. Take an extra lasix dose if you weigh >292 Ibs. Take an extra potassium pill on days you take an extra lasix on - Diet and Activity Activity: increase activity as tolerated Diet: low salt diet
[2017-10-10] MEDS ORDERED: Insulin LISPRO 300 UNITS/3 ML VIAL SQ SCH (21:00)
== END 2017-10-10 13:32 | disposition home or self-care (01) | DRG 291 ==
LOC: 2ANU 17:25 → EMEROO 17:25 → 2ANU 20:56 → UNDODISIN 10-10 12:29
PROVIDERS: ADMIT Nurse Practitioner Family; ATTEND Family Medicine

== ENCOUNTER 2018-01-08 17:25 | Observation (INO) ==
--- NOTE | 2018-01-08 18:11 | Emergency Department Note ---
Disposition Clinical Impression: Acute kidney injury Back pain Qualifiers: Back pain location: low back pain Chronicity: acute Back pain laterality: unspecified Sciatica presence: without sciatica Qualified Code(s): M54.5 - Low back pain Disposition: Admitted As Inpatient Condition: Good Referrals: Jose A Hernandez MD [Primary Care Provider] - Forms: ED Satisfaction Letter, Work/School Release Time of Disposition: 19:09 Abdominal Pain HPI - General Chief Complaint: ED Abdominal Pain Stated Complaint: "Low back pain,stage 3 kidney disease" Time Seen by Provider: 01/08/18 17:57 Source: patient, family Mode of arrival: ambulatory Limitations: no limitations Nursing Notes Reviewed: Yes Vital Signs Reviewed: Yes - History of Present Illness HPI Narrative: 57-year-old male who has known history of diabetes of kidney disease who comes in complaining of right flank pain that began about 3:00 this morning. No history of kidney stones. Pt Subjective Complaint: flank pain Onset (ago): hour(s) Consistency: constant Location: R flank Pain Scale: 6 Quality: aching Radiation: none Migration to: no migration Improves with: nothing Worsens with: nothing Associated symptoms: Reports: denies other symptoms Treatments prior to arrival: none - Related Data Home Medications Medication Instructions Recorded Confirmed Amlodipine Besylate 10 mg PO DAILY 03/29/16 10/08/17 Atorvastatin [Lipitor] 40 mg PO HS 03/29/16 10/08/17 Carvedilol 25 mg PO BID 03/29/16 10/08/17 Chlorthalidone 25 mg PO DAILY 03/29/16 10/08/17 Furosemide [Lasix] 40 mg PO DAILY 03/29/16 10/08/17 Losartan Potassium [Cozaar] 100 mg PO DAILY 03/29/16 10/08/17 Potassium Chloride [Klor-Con 20 meq PO TID 03/29/16 10/08/17 Sprinkle] Fenofibrate [Lofibra] 160 mg PO DAILY 07/20/16 10/08/17 Aspirin [Lo-Dose Aspirin EC] 81 mg PO DAILY 05/26/17 10/08/17 BuPROPion XL (24 HR) [Wellbutrin 150 mg PO DAILY 05/26/17 10/08/17 Xl] Clopidogrel [Plavix] 75 mg PO DAILY 08/09/17 10/08/17 Fish Oil/Dha/Epa [Fish Oil 1,200 1 each PO DAILY 08/09/17 10/08/17 mg Fish Oil] Meloxicam 15 mg PO DAILY PRN 08/09/17 10/08/17 Tamsulosin HCl [Flomax] 0.4 mg PO DAILY 08/09/17 10/08/17 Acetaminophen [Tylenol Arthritis] 1,300 mg PO Q8H PRN 10/08/17 10/08/17 Cholecalciferol (D-3) [Vitamin D] 5,000 unit PO DAILY 10/08/17 10/08/17 Niacin [Niaspan] 1,000 mg PO DAILY 10/08/17 10/08/17 Subcutaneous Insulin Pump [T:Slim] 1 each MC AD 10/08/17 10/08/17 cloNIDine HCl [CloNIDine HCl] 0.1 mg PO BID 10/08/17 10/08/17 Previous Rx's Medication Instructions Recorded Hydralazine HCl 50 mg PO TID #90 tablet 05/30/17 aMILoride [Midamor] 10 mg PO DAILY #60 tablet 05/30/17 Allergies Allergy/AdvReac Type Severity Reaction Status Date / Time Penicillins Allergy Hives Verified 01/08/18 17:33 All systems ED: reviewed and negative except as stated. Constitutional: Denies: fever, chills, weakness, weight change Eyes: Denies: eye pain, eye discharge, vision change ENT ED: Denies: ear pain, throat pain, dental pain, hearing loss, epistaxis, congestion, dysphagia Cardiovascular: Denies: chest pain, palpitations, dyspnea on exertion, edema, syncope Respiratory: Denies: cough, dyspnea, wheezes, hemoptysis, stridor Gastrointestinal: Denies: abdominal pain, nausea, vomiting, diarrhea, constipation, hematemesis, melena, hematochezia Genitourinary: Denies: urgency, dysuria, frequency, hematuria Musculoskeletal: Reports: back pain. Denies: neck pain, arthralgia, myalgia Integumentary: Denies: rash, abrasion, lesions Neurological: Denies: headache, weakness, numbness, paresthesias, confusion, abnormal gait, vertigo Psychiatric: Denies: anxiety, depression, suicidal thoughts, homicidal thoughts , auditory hallucinations, visual hallucinations Endocrine: Denies: fatigue Hematological/Lymphatic: Denies: easy bleeding, easy bruising Allergic/Immunologic: Denies: facial swelling, urticaria Abdominal Pain PMH - Past Medical History Medical history: Reports: arthritis, coronary artery disease, CVA, diabetes, hyperlipidemia, hypertension, myocardial infarction, renal disease Male Surgical History: Reports: cataract Psychiatric history: Reports: no psych history - Social History Smoking status: Heavy tobacco smoker Alcohol use: Reports: none Drug use: Reports: none Physical Exam - General Limitations: no limitations General appearance: alert, in no apparent distress - Head Head exam: atraumatic, normocephalic, normal inspection - Eye Eye exam: Present: normal appearance, PERRL, EOMI - ENT ENT exam: normal exam, normal oropharynx, mucous membranes moist - Neck Neck exam: Present: normal inspection, full ROM, trachea midline - Chest Chest inspection: Present: normal inspection, symmetric chest wall rise - Respiratory Respiratory exam: Present: normal lung sounds bilaterally - Cardiovascular Cardiovascular exam: Present: regular rate, normal rhythm, normal heart sounds - Abdominal Exam Abdominal exam: Present: soft, Non-Tender. Absent: tenderness, distention, guarding, rebound, rigidity - Extremities Exam Extremities exam: Present: normal inspection, full ROM. Absent: tenderness, pedal edema - Expanded Lower Extremity Exam Neurovascular/Tendon exam: Absent: motor deficit, sensory deficit, tendon deficit Gait: observed and normal - Back Exam Back exam: Present: normal inspection, full ROM, tenderness - Neurological Exam Neurological exam: Present: alert, oriented X3 - Psychiatric Psychiatric exam: Present: normal affect, normal mood - Skin Skin exam: Present: warm, dry, intact, normal color Course - Reevaluation(s) Reevaluation #1: 57-year-old with a history of insufficiency comes in with back pain and is noted to have a significant elevation in his creatinine to 3.4+. CT of the abdomen was negative. Patient will be admitted for further evaluation and treatment. Time: 19:35 - Consultations Consultation #1: Discussed with Dr. De La Cruz, admit Time: 19:35 Vital Signs Temperature 98.2 F 01/08/18 17:34 Pulse Rate 62 01/08/18 17:34 Respiratory Rate 20 01/08/18 17:34 Blood Pressure 150/74 01/08/18 17:34 O2 Sat by Pulse Oximetry 93 01/08/18 17:34 Temperature 98.2 F 01/08/18 19:09 Pulse Rate 62 01/08/18 19:09 Respiratory Rate 20 01/08/18 19:09 Blood Pressure 150/74 01/08/18 19:09 O2 Sat by Pulse Oximetry 93 01/08/18 19:09 Oxygen Delivery Oxygen Delivery Room Air Abdominal Pain - Lab Data Result diagrams: 01/08/18 18:10 01/08/18 18:10 Lab Results 01/08/18 01/08/18 Range/Units 18:10 18:10 WBC 6.2 (4.3-11.1) K/mcL RBC 4.73 (4.19-5.50) M/mcL Hgb 13.4 (12.9-16.9) g/dL Hct 38.1 (37.5-50.1) % MCV 80.5 L (83.0-100.0) fL MCH 28.3 (28.0-33.3) pg MCHC 35.2 (31.6-35.5) g/dL RDW 14.1 (11.5-14.5) % Plt Count 196 (140-400) K/mcL MPV 10.4 (9.4-12.4) fL Immature Gran % 0.8 (0-4) % Seg Neutrophils % 64.0 % Lymphocytes % 23.6 % Monocytes % 8.2 % Eosinophils % 2.6 % Basophils % 0.8 % Neutrophils # 4.0 (1.6-8.9) K/mcL Lymphocytes # 1.5 (0.6-4.6) K/mcL Monocytes # 0.5 (0.0-1.3) K/mcL Eosinophils # 0.2 (0.0-0.6) K/mcL Basophils # 0.1 (0.0-0.2) K/mcL Sodium 137 (136-145) mEq/L Potassium 3.4 L (3.5-5.1) mEq/L Chloride 94 L (98-107) mEq/L Carbon Dioxide 34 H (23-29) mEq/L BUN 41 H (6-20) mg/dL Creatinine 3.43 H (0.70-1.30) mg/dL Est GFR ( Amer) 23 L (> 60) Est GFR (Non-Af Amer) 19 L (> 60) BUN/Creatinine Ratio 12 (6-26) Glucose 305 H (70-105) mg/dL Calculated Osmolality 306 H (280-300) Calcium 9.5 (8.6-10.3) mg/dL Total Bilirubin 0.4 (0.3-1.0) mg/dL AST 28 (13-39) Units/L ALT 23 (7-52) Units/L Alkaline Phosphatase 57 (34-104) Units/L Troponin I 0.05 H* (< 0.04) ng/mL Serum Total Protein 6.5 (6.4-8.9) g/dL Albumin 3.7 (3.5-5.7) g/dL Globulin 2.8 (2.4-3.5) g/dL Albumin/Globulin Ratio 1.3 (1.1-2.2)
[2018-01-08 18:36] LABS: Basophils # 0.1 K/mcL (0.0-0.2); Basophils % 0.8 %; Eosinophils # 0.2 K/mcL (0.0-0.6); Eosinophils % 2.6 %; Hematocrit 38.1 % (37.5-50.1); Hemoglobin 13.4 g/dL (12.9-16.9); Immature Granulocytes % 0.8 % (0-4); Lymphocytes # 1.5 K/mcL (0.6-4.6); Lymphocytes % 23.6 %; Mean Corpuscular HGB Conc 35.2 g/dL (31.6-35.5); Mean Corpuscular Hemoglobin 28.3 pg (28.0-33.3); Mean Corpuscular Volume 80.5 fL (83.0-100.0); Mean Platelet Volume 10.4 fL (9.4-12.4); Monocytes # 0.5 K/mcL (0.0-1.3); Monocytes % 8.2 %; Platelet Count 196 K/mcL (140-400); Red Blood Count 4.73 M/mcL (4.19-5.50); Red Cell Distribution Width 14.1 % (11.5-14.5)
[2018-01-08 18:57] LABS: Albumin 3.7 g/dL (3.5-5.7); Albumin/Globulin Ratio 1.3 (1.1-2.2); Bilirubin,Total 0.4 mg/dL (0.3-1.0); Calcium 9.5 mg/dL (8.6-10.3); Globulin 2.8 g/dL (2.4-3.5); Potassium 3.4 mEq/L (3.5-5.1); Total Protein 6.5 g/dL (6.4-8.9)
[2018-01-08 19:00] LABS: Troponin I 0.05 ng/mL (< 0.04)
[2018-01-08] MEDS ORDERED: 0.9 % Sodium Chloride 1,000 ML IVC ONE (19:10)
--- NOTE | 2018-01-08 20:16 | Internal Med History&Physical ---
Date of Encounter: 01/09/18 Time of Encounter: 20:30 Internal Medicine - H&P: HPI Chief complaint: right flank pain Admitted From: Home Plans for Post Hospital Care: Home History of present illness: Mr. Frederick is a 57 year old male with a pmh of DM with CKD, HTn, CVA, and CAD who presented to the ED with right flank pain. Patient states pain is stabbing and is located on his right paraspinal muscle at the level of L1 - L3. He states that his pain gets better when he lays down and has improved and is now 3 out of 10. Patient states he status have a history of kidney stones, but does have CKD stage III secondary to his diabetes. He states that he recently was hospitalized a month ago for congestive heart failure and did increase his diuretics but does not know which one. He has not taken any new medications and denies taking [id number] anti-inflammatories. He states that overnight he had an 8 pound weight gain but denies shortness of breath, worsening of orthopnea, or worsening lower extremity edema. Patient denies dysuria, hematuria, fevers, dizziness, cough, chest pain. Upon arrival to the ED, vitals were wnl. Labs showed Creatinine 3.4 (previous 2.4 on 12/18), potassium 3.4, glucose 305, Troponin 0.05,WBC wnl. CT abd and pelvis showed no evidence of urinary tract calculus or obstructive uropathy. CXR negative for acute processes with stable cardiomegaly. In the ED, 1L bolus given. Patient was admitted to the floor for FABIAN. Past Med Surg Social Fam HX - Past Medical History Medical history: arthritis, coronary artery disease, CVA, diabetes, hyperlipidemia, hypertension, myocardial infarction, renal disease Additional medical history: color blind Psychiatric history: no psych history - Past Surgical History Surgical History: cataract - Social History Smoking Status: Heavy tobacco smoker Smokeless Tobacco Status: No Alcohol use: none Drug use: none - Family History Brother Adopted: No Family Member Ethnicity: Non- Living Status: Hx Family Cardiac Disorders: Yes (CAD) Hx Family Respiratory Disorders: No Hx Family Cancer: Yes (Hodgkins dz) Hx Family GI Disorders: No Hx Family Endocrine Disorder: No Hx Family Neuromuscular Disorders: No Hx Family Neurologic Disorders: No Hx Family HEENT Disorders: Yes (blind in one eye) Hx Family Autoimmune Disorders: No Internal Medicine - H&P: Meds Amlodipine Besylate 10 mg PO DAILY 03/29/16 [History] Atorvastatin [Lipitor] 40 mg PO HS 03/29/16 [History] Carvedilol 25 mg PO BID 03/29/16 [History] Chlorthalidone 25 mg PO DAILY 03/29/16 [History] Furosemide [Lasix] 40 mg PO DAILY 03/29/16 [History] Losartan Potassium [Cozaar] 100 mg PO DAILY 03/29/16 [History] Potassium Chloride [Klor-Con Sprinkle] 20 meq PO TID 03/29/16 [History] Fenofibrate [Lofibra] 160 mg PO DAILY 07/20/16 [History] Aspirin [Lo-Dose Aspirin EC] 81 mg PO DAILY 05/26/17 [History] BuPROPion XL (24 HR) [Wellbutrin Xl] 150 mg PO DAILY 05/26/17 [History] Hydralazine HCl 50 mg PO TID #90 tablet 05/30/17 [Rx] aMILoride [Midamor] 10 mg PO DAILY #60 tablet 05/30/17 [Rx] Clopidogrel [Plavix] 75 mg PO DAILY 08/09/17 [History] Fish Oil/Dha/Epa [Fish Oil 1,200 mg Fish Oil] 1 each PO DAILY 08/09/17 [History] Meloxicam 15 mg PO DAILY PRN 08/09/17 [History] Tamsulosin HCl [Flomax] 0.4 mg PO DAILY 08/09/17 [History] Acetaminophen [Tylenol Arthritis] 1,300 mg PO Q8H PRN 10/08/17 [History] Cholecalciferol (D-3) [Vitamin D] 5,000 unit PO DAILY 10/08/17 [History] Niacin [Niaspan] 1,000 mg PO DAILY 10/08/17 [History] Subcutaneous Insulin Pump [T:Slim] 1 each MC AD 10/08/17 [History] cloNIDine HCl [CloNIDine HCl] 0.1 mg PO BID 10/08/17 [History] Ezetimibe [Zetia] 10 mg PO DAILY 01/08/18 [History] Levothyroxine [Synthroid] 25 mcg PO DAILY 01/08/18 [History] 3 Allergy/AdvReac Type Severity Reaction Status Date / Time Penicillins Allergy Hives Verified 01/08/18 17:33 All Systems PM: A 10-system review of systems was performed and is negative for pertinent findings except as documented above in the HPI. - Constitutional Vitals: Temp Pulse Resp BP Pulse Ox 98.2 F 62 20 150/74 93 01/08/18 19:09 01/08/18 19:09 01/08/18 19:09 01/08/18 19:09 01/08/18 19:09 Exam: Constitutional: Alert, in no acute distress Head: Normocephalic, atraumatic Heart: Normal, regular rate and rhythm, no murmurs Lungs: + crackles at bases Abdomen: insulin pump present, Soft, nondistended, nontender, bowel sounds present and normal, no guarding or rigidity. Extremities: +1 pitting edema, No clubbing, radial pulse +2/4, capillary refill <2sec. Back: right paraspinal muscle tenderness between L1-L3 able to be reproduced and eased by right rotation and extension Skin: Skin warm and dry, no lesions, no rashes, no jaundice Neurologic: Cranial nerves II through XII grossly intact, strength 5/5 in all extremitites Psych: Cooperative with exam, good eye contact, cognitive function intact, speech clear, thought process logical, and goal directed Internal Med - H&P Results - Labs CBC & Chem 7: 01/08/18 18:10 01/09/18 00:32 Labs: Short CBC 01/08/18 Range/Units 18:10 WBC 6.2 (4.3-11.1) K/mcL Hgb 13.4 (12.9-16.9) g/dL Hct 38.1 (37.5-50.1) % Plt Count 196 (140-400) K/mcL Neutrophils # 4.0 (1.6-8.9) K/mcL BMP 01/08/18 18:10 Sodium 137 Potassium 3.4 L Chloride 94 L Carbon Dioxide 34 H BUN 41 H Creatinine 3.43 H Glucose 305 H Calcium 9.5 Cardiac Enzymes 01/08/18 Range/Units 18:10 Troponin I 0.05 H* (< 0.04) ng/mL Liver Function 01/08/18 Range/Units 18:10 Total Bilirubin 0.4 (0.3-1.0) mg/dL AST 28 (13-39) Units/L ALT 23 (7-52) Units/L Alkaline Phosphatase 57 (34-104) Units/L Albumin 3.7 (3.5-5.7) g/dL - Impressions ITS Impressions Chest X-Ray 01/08/18 17:41 IMPRESSION: No acute process. Stable cardiomegaly D/ / Phil Nina MD / Phil Nina MD Interpreting Provider: Phil Nina MD Abdomen/Pelvis CT 01/08/18 18:09 IMPRESSION: 1. No acute abdominopelvic abnormality. 2. No evidence of urinary tract calculus or obstructive uropathy. D/ / Carlos Collazo / Carlos Collazo Interpreting Provider: Carlos Collazo - Assessment and plan (1) FABIAN (acute kidney injury) Current Visit: Yes Status: Acute Assessment and plan: CKD stage III with FABIAN most likely 2/2 to increase in diuretics last month. Currently creatinine 3.43. Will hold amiloride, Lasix, and chlorthalidone. Amiloride should not be given if creatinine is > 1.5. Can reassess if needs diuretic in the AM. Plan: - urine Na, osmo, and creatinine - fluids: 500ml bolus, repeat creatinine function - holding home Amiloride, Lasix and Chlorthalidone (2) Hypokalemia Current Visit: No Status: Acute Assessment and plan: Most likely 2/2 to diuretics. Will replaced with KCl 40meq IV then recheck in the AM. (3) CKD (chronic kidney disease) stage 3, GFR 30-59 ml/min Current Visit: No Status: Chronic Assessment and plan: Avoid nephrotoxic medications. Should consider discontinuing Amiloride as a home med as contraindicated in patients with a creatinine > 1.5. (4) DM2 (diabetes mellitus, type 2) Current Visit: No Status: Acute Assessment and plan: Home medications include insulin pump which he takes 20 units with each meal plus correction. Basil dose 3 U/hr. Current blood glucose 305. 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 Pain decreased with osteopathy manipulative treatment. Can give Tylenol if needed. (6) Congestive heart failure Current Visit: No Status: Chronic Assessment and plan: Patient states that overnight he had a 8lb weight gain. He denies SOB and swelling is normal. BNP= 80, no pulmonary edema on CXR. Will be gentle with fluids for FABIAN. Plan: - reassess fluid status in the AM to determine if need diuretic Qualifiers: Heart failure type: unspecified Heart failure chronicity: unspecified Qualified Code(s): I50.9 - Heart failure, unspecified (7) DVT prophylaxis Current Visit: No Status: Acute Assessment and plan: Heparin SQ - Time Spent With Patient Total time spent is greater than 50% in coordination of care (as documented) at patient's floor/unit and/or counseling patient:
[2018-01-08] MEDS ORDERED: Naloxone 0.4 MG/ML INJ IVP PRN (22:32)
[2018-01-08] MEDS ORDERED: Melatonin 3 MG TABLET PO PRN (22:44)
[2018-01-08] MEDS: *HR* Heparin 5,000 UNIT/ML VIAL SQ SCH (23:26)
[2018-01-08] MEDS ORDERED: (Subcutaneous Insulin Pump [T:Slim] 1 EACH) MC SCH (23:30)
[2018-01-09 00:03] LABS: Sodium, Urine 84.2 mEq/L
[2018-01-09] MEDS ORDERED: D5% in Water 1,000 ML IVC PRN (01:03)
[2018-01-09] MEDS ORDERED: Dextrose Gel 15 GM/37.5 ML TUBE PO PRN ×2 (01:03)
[2018-01-09] MEDS ORDERED: *HR* Dextrose 50 % in Water (Syg) 50 ML SYRINGE IVP PRN (01:03)
[2018-01-09] MEDS: (Subcutaneous Insulin Pump [T:Slim] 1 EACH) MC SCH (01:33)
[2018-01-09 01:38] LABS: Calcium 9.4 mg/dL (8.6-10.3); Magnesium 2.2 mg/dL (1.6-2.6); Phosphorous 4.3 mg/dL (2.7-4.5); Potassium 2.9 mEq/L (3.5-5.1)
[2018-01-09] MEDS ORDERED: 0.9 % Sodium Chloride 500 ML IVC ONE (03:01)
[2018-01-09] MEDS ORDERED: Potassium Chloride 40 MEQ, Lidocaine 1% 2 ML in D5% in Water 500 ML IVPB ONE (03:13)
[2018-01-09] MEDS: *HR* Heparin 5,000 UNIT/ML VIAL SQ SCH ×2 (05:52→18:04)
[2018-01-09] MEDS: Levothyroxine 25 MCG TABLET PO SCH (05:52)
[2018-01-09 06:49] LABS: Calcium 9.1 mg/dL (8.6-10.3); Potassium 3.2 mEq/L (3.5-5.1)
[2018-01-09] MEDS: Aspirin Enteric Coated 81 MG Tablet PO SCH (09:11)
[2018-01-09] MEDS: hydrALAZINE 25 MG TABLET PO SCH ×3 (09:12→21:28)
[2018-01-09] MEDS: cloNIDine HCl 0.1 MG TABLET PO SCH ×2 (09:12→21:28)
[2018-01-09] MEDS: amLODIPine 5 MG TABLET PO SCH (09:12)
--- NOTE | 2018-01-09 09:12 | Event Note ---
Date of Encounter: 01/09/18 Time of Encounter: 09:12 I saw and evaluated the patient. I reviewed the residents note and agree with findings and plan as documented in the residents note.
[2018-01-09] MEDS ORDERED: 0.9 % Sodium Chloride 1,000 ML IVC SCH (11:45)
--- NOTE | 2018-01-09 12:32 | Electrocardiograph Report ---
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
--- NOTE | 2018-01-09 12:37 | Electrocardiograph Report ---
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
[2018-01-09] MEDS ORDERED: Potassium Chloride 20 MEQ, Lidocaine 1% 2 ML in D5% in Water 250 ML IVPB ONE (17:58)
--- NOTE | 2018-01-09 18:00 | Event Note ---
Date of Encounter: 01/09/18 Time of Encounter: 11:00 I did examine and see the patient at bedside earlier this morning. Patient was also seen by hospitalist earlier in the a.m. Presently patient denies any chest pain or shortness of breath he denies any back pain. We did replace his electrolytes today we will give gentle IV hydration and recheck his renal function in the a.m.
[2018-01-09] MEDS: Acetaminophen 325 MG TABLET PO PRN (21:27)
[2018-01-10] MEDS: (Subcutaneous Insulin Pump [T:Slim] 1 EACH) MC SCH (02:00)
[2018-01-10] MEDS: *HR* Heparin 5,000 UNIT/ML VIAL SQ SCH ×2 (05:25→17:24)
[2018-01-10] MEDS: Levothyroxine 25 MCG TABLET PO SCH (05:25)
[2018-01-10 06:27] LABS: Basophils # 0.1 K/mcL (0.0-0.2); Basophils % 0.8 %; Eosinophils # 0.2 K/mcL (0.0-0.6); Hematocrit 37.3 % (37.5-50.1); Hemoglobin 12.5 g/dL (12.9-16.9); Immature Granulocytes % 1.2 % (0-4); Lymphocytes # 1.4 K/mcL (0.6-4.6); Mean Corpuscular HGB Conc 33.5 g/dL (31.6-35.5); Mean Corpuscular Hemoglobin 27.5 pg (28.0-33.3); Mean Corpuscular Volume 82.2 fL (83.0-100.0); Mean Platelet Volume 10.7 fL (9.4-12.4); Monocytes # 0.5 K/mcL (0.0-1.3); Monocytes % 7.9 %; Neutrophils # 3.8 K/mcL (1.6-8.9); Platelet Count 172 K/mcL (140-400); Red Blood Count 4.54 M/mcL (4.19-5.50); Red Cell Distribution Width 14.5 % (11.5-14.5); Segmented Neutrophils % 64.1 %
[2018-01-10 06:44] LABS: Calcium 9.1 mg/dL (8.6-10.3); Potassium 3.2 mEq/L (3.5-5.1)
[2018-01-10] MEDS ORDERED: Potassium Chloride 40 MEQ, Lidocaine 1% 2 ML in D5% in Water 500 ML IVPB ONE (08:41)
[2018-01-10] MEDS: amLODIPine 5 MG TABLET PO SCH (08:57)
[2018-01-10] MEDS: Aspirin Enteric Coated 81 MG Tablet PO SCH (08:57)
[2018-01-10] MEDS: hydrALAZINE 25 MG TABLET PO SCH ×3 (08:57→20:53)
[2018-01-10] MEDS: cloNIDine HCl 0.1 MG TABLET PO SCH ×2 (08:58→20:54)
[2018-01-10 17:21] LABS: Calcium 9.1 mg/dL (8.6-10.3); Potassium 3.6 mEq/L (3.5-5.1)
--- NOTE | 2018-01-10 17:58 | Internal Med Progress Note ---
Date of Encounter: 01/10/18 Time of Encounter: 17:50 - Assessment and plan (1) Hypokalemia Current Visit: No Status: Acute Assessment and plan: Potassium has been replaced and has improved we will continue to monitor (2) DVT prophylaxis Current Visit: No Status: Acute Assessment and plan: Heparin SQ (3) CKD (chronic kidney disease) stage 3, GFR 30-59 ml/min Current Visit: No Status: Chronic Assessment and plan: Avoid nephrotoxic medications. Should consider discontinuing Amiloride as a home med as contraindicated in patients with a creatinine > 1.5. Creatinine is improving (4) DM2 (diabetes mellitus, type 2) Current Visit: No Status: Acute Assessment and plan: Home medications include insulin pump which he takes 20 units with each meal plus correction. Basil dose 3 U/hr. 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 Today BNP= 80 on admission Consults have been somewhat low we will check chest x-ray for any pulmonary edema lung sounds are clear at this time We will resume home Lasix however there is palmar erythema will initiate IV Lasix Qualifiers: Heart failure type: unspecified Heart failure chronicity: unspecified Qualified Code(s): I50.9 - Heart failure, unspecified (6) FABIAN (acute kidney injury) Current Visit: Yes Status: Acute Assessment and plan: CKD stage III with FABIAN most likely 2/2 to increase in diuretics last month. Creatinine is trending down much improved we will resume Lasix continue to hold amiloride and Chlorthalidone (7) Lumbar paraspinal muscle spasm Current Visit: Yes Status: Acute Assessment and plan: Pain control at this time patient ambulating without any difficulty - Time Spent With Patient Total time spent is greater than 50% in coordination of care (as documented) at patient's floor/unit and/or counseling patient: - Subjective Interval history: Patient was seen and examined bedside patient states he feels better electrolytes have improved however his oxygen saturation is still low. This appears may be chronic however I will check a chest x-ray to make sure he is not fluid overloaded - Constitutional Vitals: Temp Pulse Resp BP Pulse Ox 98.0 F 64 14 136/71 93 01/10/18 15:59 01/10/18 15:59 01/10/18 15:59 01/10/18 15:59 01/10/18 15:59 General appearance: Present: A&O X 3 - Head Head exam: Present: atraumatic, normocephalic - Eye Eye exam: Present: PERRL, conjuntiva pink, sclera anicteric Pupils: Present: PERRL - Neck Neck exam general surgery: Present: supple, trachea midline. Absent: lymphadenopathy - Respiratory Respiratory exam: Present: CTAB. Absent: accessory muscle use, rales, rhonchi, wheezes - Cardiovascular Cardiovascular exam: Present: RRR, +S1, +S2. Absent: diastolic murmur, gallop, rubs, systolic murmur - GI/Abdominal GI/Abdominal exam: Present: normal bowel sounds, soft, no peritoneal signs. Absent: distended, tenderness - Extremities Exam Extremities exam: Present: warm, radial pulses palpable and symmetrical. Absent : calf tenderness, cyanotic, pedal edema - Neurological Exam Neurological exam: Present: CN II-XII intact, oriented X3, no focal deficits. Absent: pronater drift, facial droop, speech deficit - Skin Skin exam: Present: dry, intact Internal Medicine: Result - Labs CBC & Chem 7: 01/10/18 04:44 01/10/18 16:40 Labs: Short CBC 01/10/18 Range/Units 04:44 WBC 5.9 (4.3-11.1) K/mcL Hgb 12.5 L (12.9-16.9) g/dL Hct 37.3 L (37.5-50.1) % Plt Count 172 (140-400) K/mcL Neutrophils # 3.8 (1.6-8.9) K/mcL BMP 01/10/18 01/10/18 04:44 16:40 Sodium 140 137 Potassium 3.2 L 3.6 Chloride 101 99 Carbon Dioxide 32 H 29 BUN 34 H 31 H Creatinine 2.38 H 2.24 H Glucose 187 H 234 H Calcium 9.1 9.1 Consult Discharge Plan - Plan Referrals: Jose A Hernandez MD [Primary Care Provider] - 01/17/18 1:00 pm
[2018-01-10] MEDS ORDERED: Insulin LISPRO 300 UNITS/3 ML VIAL SQ SCH ×2 (21:30)
[2018-01-10] MEDS: Acetaminophen 325 MG TABLET PO PRN (23:12)
[2018-01-11] MEDS: (Subcutaneous Insulin Pump [T:Slim] 1 EACH) MC SCH (04:03)
[2018-01-11] MEDS: Levothyroxine 25 MCG TABLET PO SCH (05:42)
[2018-01-11] MEDS: *HR* Heparin 5,000 UNIT/ML VIAL SQ SCH (05:42)
[2018-01-11] MEDS ORDERED: Insulin LISPRO 300 UNITS/3 ML VIAL SQ SCH (07:30)
[2018-01-11 07:37] LABS: Basophils # 0.1 K/mcL (0.0-0.2); Eosinophils # 0.2 K/mcL (0.0-0.6); Eosinophils % 3.1 %; Hematocrit 37.2 % (37.5-50.1); Hemoglobin 12.9 g/dL (12.9-16.9); Immature Granulocytes % 1.3 % (0-4); Lymphocytes # 1.2 K/mcL (0.6-4.6); Lymphocytes % 19.5 %; Mean Corpuscular HGB Conc 34.7 g/dL (31.6-35.5); Mean Corpuscular Hemoglobin 28.3 pg (28.0-33.3); Mean Corpuscular Volume 81.6 fL (83.0-100.0); Mean Platelet Volume 10.4 fL (9.4-12.4); Monocytes # 0.5 K/mcL (0.0-1.3); Neutrophils # 4.1 K/mcL (1.6-8.9); Platelet Count 171 K/mcL (140-400); Red Blood Count 4.56 M/mcL (4.19-5.50); Red Cell Distribution Width 14.4 % (11.5-14.5); Segmented Neutrophils % 67.1 %
[2018-01-11] MEDS: hydrALAZINE 25 MG TABLET PO SCH (08:31)
[2018-01-11] MEDS: cloNIDine HCl 0.1 MG TABLET PO SCH (08:31)
[2018-01-11] MEDS: Aspirin Enteric Coated 81 MG Tablet PO SCH (08:32)
[2018-01-11] MEDS: amLODIPine 5 MG TABLET PO SCH (08:32)
[2018-01-11] MEDS ORDERED: Furosemide 40 MG TABLET PO SCH (09:00)
[2018-01-11 10:18] LABS: Calcium 9.3 mg/dL (8.6-10.3); Potassium 3.6 mEq/L (3.5-5.1)
[2018-01-11 10:46] VITALS: BP 159/69
--- NOTE | 2018-01-11 10:49 | Discharge Summary ---
- NOTES TO OUTPATIENT PROVIDER Notes to Outpatient Provider: presented with FABIAN creatinine of 3.43-diuretics were held patient was given gentle IV fluids and returned back to his baseline creatinine. Resume to Lasix however did hold chlorthalidone, and amiloride. Creatinine will be need to be monitored and diuretics slowly resumed. 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 termite treater helper use Diabetes mellitus complication status: with kidney complications Diabetes mellitus complication detail: with chronic kidney disease Chronic kidney disease stage : stage 3 (moderate) Qualified Code(s): E11.22 - Type 2 diabetes mellitus with diabetic chronic kidney disease; N18.3 - Chronic kidney disease, stage 3 ( moderate); Z79.4 - [facility] (current) use of insulin (4) Congestive heart failure Priority: Secondary Status: Chronic Qualifiers: Heart failure type: unspecified Heart failure chronicity: unspecified Qualified Code(s): I50.9 - Heart failure, unspecified (5) FABIAN (acute kidney injury) Priority: Primary Status: Acute (6) Lumbar paraspinal muscle spasm Priority: Secondary Status: Acute (7) Elevated troponin Priority: Secondary Status: Acute Hospital course: Mr. Frederick is a 58 year old male past medical history of coronary artery disease CVA diabetes hyperlipidemia hypertension myocardial infarction CK D chronic back pain. Patient presented to the emergency department with lower back pain he was recently hospitalized approximately 1 month ago for congestive heart failure and he did have increase in his diuretics however he is unaware of which 1. He has been taking medications as prescribed. Lab work did reveal an elevated creatinine of 3.4 previously he was 2.415/29 potassium was low at 3.4 as well troponin was 0.05 white count was normal CT of abdomen and pelvis showed no evidence urinary calculi or obstructive uropathy chest x-ray was negative for any acute process with stable cardiomegaly. His diuretics were held he was given IV fluids and his creatinine improved. Potassium did drop down during admission he received several K riders and eventually potassium returned to normal. Electrolytes were monitored. Troponins remained elevated however this appears to be chronic suspect related to see KD patient denies any chest pain EKG maintained unchanged from previous. Patient did have low SPO2 during admission repeat chest x-ray showed stable chest, upon review of records it appears patient sats usually run around 92-94%. We did do a walk test which he did not qualify for home oxygen. I will resume patient's home Lasix however we will continue to hold to other diuretics until he is evaluated by his primary care we will have patient check labs as outpatient. He will follow-up with primary care and nephrology, since these providers know him best and can adjust medications accordingly. Advised patient to monitor fluid and daily weights low-salt diet. Patient verbalized understanding he is hemodynamically stable and he is ready for discharge. - Time Spent with Patient Total time spent providing and/or coordinating discharge services: - Discharge Medications Home Medications: Amlodipine Besylate 10 mg PO DAILY 03/29/16 [History] Atorvastatin [Lipitor] 40 mg PO HS 03/29/16 [History] Carvedilol 25 mg PO BID 03/29/16 [History] Furosemide [Lasix] 40 mg PO DAILY 03/29/16 [History] Losartan Potassium [Cozaar] 100 mg PO DAILY 03/29/16 [History] Potassium Chloride [Klor-Con Sprinkle] 20 meq PO TID 03/29/16 [History] Fenofibrate [Lofibra] 160 mg PO DAILY 07/20/16 [History] Aspirin [Lo-Dose Aspirin EC] 81 mg PO DAILY 05/26/17 [History] BuPROPion XL (24 HR) [Wellbutrin Xl] 150 mg PO DAILY 05/26/17 [History] Hydralazine HCl 50 mg PO TID #90 tablet 05/30/17 [Rx] Clopidogrel [Plavix] 75 mg PO DAILY 08/09/17 [History] Fish Oil/Dha/Epa [Fish Oil 1,200 mg Fish Oil] 1 each PO DAILY 08/09/17 [History] Tamsulosin HCl [Flomax] 0.4 mg PO DAILY 08/09/17 [History] Acetaminophen [Tylenol Arthritis] 1,300 mg PO Q8H PRN 10/08/17 [History] Cholecalciferol (D-3) [Vitamin D] 5,000 unit PO DAILY 10/08/17 [History] Niacin [Niaspan] 1,000 mg PO DAILY 10/08/17 [History] Subcutaneous Insulin Pump [T:Slim] 1 each MC AD 10/08/17 [History] cloNIDine HCl [CloNIDine HCl] 0.1 mg PO BID 10/08/17 [History] Ezetimibe [Zetia] 10 mg PO DAILY 01/08/18 [History] Levothyroxine [Synthroid] 25 mcg PO DAILY 01/08/18 [History] Allergies/Adverse Reactions: 3 Allergy/AdvReac Type Severity Reaction Status Date / Time Penicillins Allergy Hives Verified 01/08/18 17:33 Date of admission: 01/08/18 21:38 Primary care physician: Jose A Hernandez Discharging clinician: Jessica Griffith Anticipated date of discharge: 01/11/18 - Constitutional Vitals: Temp Pulse Resp BP Pulse Ox 98.0 F 70 16 158/83 91 01/11/18 07:01 01/11/18 07:01 01/11/18 07:01 01/11/18 07:01 01/11/18 07:01 General appearance: Present: A&O X 3 - Head Head exam: Present: atraumatic, normocephalic - Eye Eye exam: Present: PERRL, conjuntiva pink, sclera anicteric Pupils: Present: PERRL - Neck Neck exam general surgery: Present: supple, trachea midline. Absent: lymphadenopathy - Respiratory Respiratory exam: Present: CTAB. Absent: accessory muscle use, rales, rhonchi, wheezes - Cardiovascular Cardiovascular exam: Present: RRR, +S1, +S2. Absent: diastolic murmur, gallop, rubs, systolic murmur - GI/Abdominal GI/Abdominal exam: Present: normal bowel sounds, soft, no peritoneal signs. Absent: distended, tenderness - Extremities Exam Extremities exam: Present: warm, radial pulses palpable and symmetrical. Absent : calf tenderness, cyanotic, pedal edema - Neurological Exam Neurological exam: Present: CN II-XII intact, oriented X3, no focal deficits. Absent: pronater drift, facial droop, speech deficit - Skin Skin exam: Present: dry, intact - Patient Status Disposition: Home, Self-Care Condition: Good Functional capacity at discharge: independent ambulation - Discharge Instructions Instructions: Diabetes Mellitus Type 2 in Adults (DC) Follow Up With: Joes A Hernandez MD [Primary Care Provider] - 01/17/18 1:00 pm
== END 2018-01-11 11:53 | disposition home or self-care (01) ==
LOC: EMEROO 17:25 → 3BNU 17:25
PROVIDERS: ADMIT Family Medicine; ATTEND Family Medicine

== ENCOUNTER 2018-02-18 20:28 | Inpatient (IN) ==
[2018-02-18 21:46] LABS: Calcium 9.3 mg/dL (8.6-10.3)
[2018-02-18 21:54] LABS: Troponin I 0.04 ng/mL (< 0.04)
[2018-02-18 22:15] LABS: Basophils # 0.1 K/mcL (0.0-0.2); Basophils % 0.7 %; Eosinophils # 0.2 K/mcL (0.0-0.6); Eosinophils % 2.2 %; Hematocrit 34.1 % (37.5-50.1); Hemoglobin 11.7 g/dL (12.9-16.9); Immature Granulocytes % 0.8 % (0-4); Lymphocytes # 1.1 K/mcL (0.6-4.6); Lymphocytes % 14.6 %; Mean Corpuscular HGB Conc 34.3 g/dL (31.6-35.5); Mean Corpuscular Hemoglobin 28.6 pg (28.0-33.3); Mean Corpuscular Volume 83.4 fL (83.0-100.0); Mean Platelet Volume 9.7 fL (9.4-12.4); Monocytes # 0.5 K/mcL (0.0-1.3); Monocytes % 6.5 %; Neutrophils # 5.6 K/mcL (1.6-8.9); Platelet Count 187 K/mcL (140-400); Red Blood Count 4.09 M/mcL (4.19-5.50); Red Cell Distribution Width 14.3 % (11.5-14.5); Segmented Neutrophils % 75.2 %
[2018-02-18] MEDS ORDERED: Nitroglycerin 0.4 MG TAB.SUBL SL ONE (22:21)
--- NOTE | 2018-02-18 22:35 | Emergency Department Note ---
Disposition Clinical Impression: Elevated troponin, Respiratory distress CHF exacerbation Qualifiers: Heart failure type: unspecified Qualified Code(s): I50.9 - Heart failure, unspecified Disposition: Admitted As Inpatient Condition: Fair Time of Disposition: 22:39 General Adult HPI - General Chief complaint: ED Shortness of Breath/Dyspnea Stated complaint: sob Time Seen by Provider: 02/18/18 20:54 Source: patient, family Mode of arrival: ambulatory Limitations: no limitations Nursing Notes Reviewed: Yes Vital Signs Reviewed: Yes - History of Present Illness HPI Narrative: 58-year-old male with significant past medical history of COPD and CHF presenting to the emergency department with chief complaint shortness of breath. When patient arrived he was hypoxic at 85% oxygen saturation on 6 L nasal cannula. Patient states this morning he woke And was is having shortness of breath. He was recently discharged for pneumonia and COPD exacerbation. Patient states he has been having increased shortness of breath during ambulation. at bedside states he gets short of breath just getting up and walking across the room. Patient denies any fever, abdominal pain, chest pain. Patient was previously on Lasix but was unable to continue her due to his chronic kidney disease. Pain Scale: 2 - Related Data Home Medications Medication Instructions Recorded Confirmed Amlodipine Besylate 10 mg PO DAILY 03/29/16 02/18/18 Atorvastatin [Lipitor] 40 mg PO HS 03/29/16 02/18/18 Losartan Potassium [Cozaar] 100 mg PO DAILY 03/29/16 02/18/18 Potassium Chloride [Klor-Con 20 meq PO TID 03/29/16 02/18/18 Sprinkle] Aspirin [Lo-Dose Aspirin EC] 81 mg PO DAILY 05/26/17 02/18/18 BuPROPion XL (24 HR) [Wellbutrin 150 mg PO DAILY 05/26/17 02/18/18 Xl] Clopidogrel [Plavix] 75 mg PO DAILY 08/09/17 02/18/18 Fish Oil/Dha/Epa [Fish Oil 1,200 1 each PO DAILY 08/09/17 02/18/18 mg Fish Oil] Tamsulosin HCl [Flomax] 0.4 mg PO DAILY 08/09/17 02/18/18 Acetaminophen [Tylenol Arthritis] 1,300 mg PO Q8H PRN 10/08/17 02/18/18 Cholecalciferol (D-3) [Vitamin D] 5,000 unit PO DAILY 10/08/17 02/18/18 Niacin [Niaspan] 1,000 mg PO DAILY 10/08/17 02/18/18 Subcutaneous Insulin Pump [T:Slim] 1 each MC AD 10/08/17 02/18/18 Ezetimibe [Zetia] 10 mg PO DAILY 01/08/18 02/18/18 Chlorthalidone 25 mg PO DAILY 01/29/18 02/18/18 Fenofibrate Nanocrystallized 160 mg PO DAILY 01/29/18 02/18/18 [Triglide] Levothyroxine [Synthroid] 37.5 mcg PO DAILY 01/29/18 02/18/18 Previous Rx's Medication Instructions Recorded Hydralazine HCl 50 mg PO TID #90 tablet 05/30/17 Ferrous Sulfate 325 mg PO DAILY@0800 #30 tablet 02/06/18 Isosorbide DInitrate [Isordil] 10 mg PO TIDAC #90 tablet 02/06/18 Allergies Allergy/AdvReac Type Severity Reaction Status Date / Time Penicillins Allergy Hives Verified 02/18/18 20:36 All systems ED: reviewed and negative except as stated. Constitutional: Denies: fever, chills Eyes: Reports: as per HPI ENT ED: Reports: as per HPI Cardiovascular: Denies: chest pain, palpitations Respiratory: Reports: dyspnea. Denies: hemoptysis, stridor Gastrointestinal: Denies: abdominal pain, nausea, vomiting Genitourinary: Reports: as per HPI Musculoskeletal: Reports: as per HPI Integumentary: Reports: as per HPI Neurological: Denies: weakness, numbness, paresthesias Psychiatric: Reports: as per HPI Endocrine: Reports: as per HPI Hematological/Lymphatic: Reports: as per HPI Allergic/Immunologic: Reports: as per HPI Past Medical History - Past Medical History Attestation: Yes The following information was validated with the patient. Medical history: Reports: arthritis, CHF, coronary artery disease, CVA, diabetes , hyperlipidemia, hypertension, myocardial infarction, renal disease Surgical history: Reports: cataract Psychiatric history: Reports: no psych history - Social History Smoking Status: Former smoker Smokeless Tobacco Status: No Alcohol use: Reports: occasionally Drug use: Reports: none Physical Exam - General Limitations: no limitations General appearance: alert, other (Moderate respiratory distress) - Head Head exam: atraumatic, normocephalic, normal inspection - Eye Eye exam: Present: normal appearance. Absent: scleral icterus, conjunctival injection - ENT ENT exam: normal exam, mucous membranes moist - Neck Neck exam: Present: normal inspection, full ROM. Absent: tenderness, meningismus - Chest Chest inspection: Present: normal inspection, symmetric chest wall rise. Absent : tenderness, rash - Respiratory Respiratory exam: Present: other (Coarse breath sounds throughout) - Cardiovascular Cardiovascular exam: Present: regular rate, normal rhythm, normal heart sounds - Abdominal Exam Abdominal exam: Present: soft, Non-Tender. Absent: distention, guarding, rebound - Extremities Exam Extremities exam: Present: full ROM, other (One plus edema bilateral lower extremities) - Neurological Exam Neurological exam: Present: alert, oriented X3 - Psychiatric Psychiatric exam: Present: normal affect, normal mood - Skin Skin exam: Present: warm, intact Course Course Narrative: 58-year-old male presenting to the emergency department with chief complaint of shortness of breath. Upon presentation patient hypoxic in triage. Patient placed on 6 L nasal cannula with oxygen saturations in the mid 80s. Once patient was brought back to the room patient is on BiPAP with oxygen saturations in the mid to upper 90s. Patient handling BiPAP without difficulty. Concern for pneumonia versus CHF exacerbation. Patient is alert and oriented 3 in the room. After BiPAP patient has stabilized. He is hypertensive on exam. We will perform basic laboratory analysis along with EKG and chest x-ray. Also provide the patient with nitroglycerin for his hypertension. Disposition most likely admission but pending results. - Reevaluation(s) Reevaluation #1: Patient's laboratory analysis shows elevated troponin which is baseline for the patient along with elevated creatinine which is also baseline for the patient. Otherwise within normal limits. Chest x-ray shows pulmonary edema. Patient doing well on BiPAP. We will plan to admit the patient for CHF exacerbation at this time. Patient is alert and oriented 3 Stable vital signs. He agrees with this plan. I spoke with the hospitalist on- call Dr. De La Cruz who agrees to accept the patient at this time. Vital Signs Temperature 97.9 F 02/18/18 20:32 Pulse Rate 82 02/18/18 20:32 Respiratory Rate 32 02/18/18 20:32 Blood Pressure 197/89 02/18/18 20:32 O2 Sat by Pulse Oximetry 86 02/18/18 20:32 Temperature 98 F 02/18/18 23:41 Pulse Rate 74 02/18/18 23:41 Respiratory Rate 20 02/18/18 23:41 Blood Pressure 186/96 02/18/18 23:41 O2 Sat by Pulse Oximetry 91 02/18/18 23:41 Oxygen Delivery Oxygen Delivery Bipap Medical Decision Making - Lab Data Result diagrams: 02/18/18 22:08 02/18/18 21:11 Lab Results 02/18/18 02/18/18 02/18/18 Range/Units 21:11 21:11 21:11 WBC (4.3-11.1) K/mcL RBC (4.19-5.50) M/mcL Hgb (12.9-16.9) g/dL Hct (37.5-50.1) % MCV (83.0-100.0) fL MCH (28.0-33.3) pg MCHC (31.6-35.5) g/dL RDW (11.5-14.5) % Plt Count (140-400) K/mcL MPV (9.4-12.4) fL Immature Gran % (0-4) % Seg Neutrophils % % Lymphocytes % % Monocytes % % Eosinophils % % Basophils % % Neutrophils # (1.6-8.9) K/mcL Lymphocytes # (0.6-4.6) K/mcL Monocytes # (0.0-1.3) K/mcL Eosinophils # (0.0-0.6) K/mcL Basophils # (0.0-0.2) K/mcL Sodium 137 (136-145) mEq/L Potassium 4.0 (3.5-5.1) mEq/L Chloride 103 (98-107) mEq/L Carbon Dioxide 25 (23-29) mEq/L BUN 27 H (6-20) mg/dL Creatinine 2.36 H (0.70-1.30) mg/dL Est GFR ( Amer) 35 L (> 60) Est GFR (Non-Af Amer) 29 L (> 60) BUN/Creatinine Ratio 11 (6-26) Glucose 252 H (70-105) mg/dL Calculated Osmolality 298 (280-300) Lactic Acid 0.9 (0.5-2.2) mmol/L Calcium 9.3 (8.6-10.3) mg/dL Troponin I 0.04 H* (< 0.04) ng/mL B-Natriuretic Peptide 151 H (Less than 100) pg/mL 02/18/18 Range/Units 22:08 WBC 7.4 (4.3-11.1) K/mcL RBC 4.09 L (4.19-5.50) M/mcL Hgb 11.7 L (12.9-16.9) g/dL Hct 34.1 L (37.5-50.1) % MCV 83.4 (83.0-100.0) fL MCH 28.6 (28.0-33.3) pg MCHC 34.3 (31.6-35.5) g/dL RDW 14.3 (11.5-14.5) % Plt Count 187 (140-400) K/mcL MPV 9.7 (9.4-12.4) fL Immature Gran % 0.8 (0-4) % Seg Neutrophils % 75.2 % Lymphocytes % 14.6 % Monocytes % 6.5 % Eosinophils % 2.2 % Basophils % 0.7 % Neutrophils # 5.6 (1.6-8.9) K/mcL Lymphocytes # 1.1 (0.6-4.6) K/mcL Monocytes # 0.5 (0.0-1.3) K/mcL Eosinophils # 0.2 (0.0-0.6) K/mcL Basophils # 0.1 (0.0-0.2) K/mcL Sodium (136-145) mEq/L Potassium (3.5-5.1) mEq/L Chloride (98-107) mEq/L Carbon Dioxide (23-29) mEq/L BUN (6-20) mg/dL Creatinine (0.70-1.30) mg/dL Est GFR ( Amer) (> 60) Est GFR (Non-Af Amer) (> 60) BUN/Creatinine Ratio (6-26) Glucose (70-105) mg/dL Calculated Osmolality (280-300) Lactic Acid (0.5-2.2) mmol/L Calcium (8.6-10.3) mg/dL Troponin I (< 0.04) ng/mL B-Natriuretic Peptide (Less than 100) pg/mL - EKG Data EKG #1 EKG attestation: Yes I reviewed and interpreted this EKG. EKG results narrative: Sinus rhythm. Left ventricular hypertrophy. 82 bpm. MN interval 186, QRS 104 , QTC 407. No signs of acute ST segment elevation or ischemia. Motion artifact noted in multiple leads. Critical Care Time Critical Care Time: Yes Total Critical Care Time: 33 Attestation: Acute resp distress w/hypoxia requiring bipap; Attestation Statement - Attestation Attestation: DR Kenyon note: Pt seen in conjunction w/ resident DR Sera Nicole; Please see her charting for complete documentation; I agree w/ pt's treatment and disposistion and spend face to face time w/ the pt; x rays reviewed; bp improved s/p Nitro; clinically not pneumonia at this time; sx better w/ bipap; h/o same;
--- NOTE | 2018-02-18 23:26 | Internal Med History&Physical ---
<Bruno Mcdaniel - Last Filed: 02/19/18 00:21> Date of Encounter: 02/19/18 Time of Encounter: 23:25 Internal Medicine - H&P: HPI Chief complaint: SOB Admitted From: Emergency Dept Plans for Post Hospital Care: Home History of present illness: Mr. Frederick is a 58 year old male with past medical history of diastolic CHF, CAD, CVA, diabetes, hyperlipidemia, hypertension, stage III kidney disease, COPD is asked to emergency department with complaint of shortness of breath. He states that symptoms began this morning which were gradual. He did not wake up from sleep short of breath. He was notably discharged from this facility on 02/06/18 for COPD exacerbation as well as pneumonia. He states overall he was feeling well upon discharge but now short of breath. He states his symptoms are exacerbated with lying flat, exertion and has no relieving factors. He denies any symptoms of fevers, chills, cough, chest pain. He does admit to bilateral lower extremity swelling as well as abdominal fullness in that time. He did follow up with his primary care physician of discharge who told him to stop taking his Lasix due to his chronic kidney disease. He is not oxygen dependent at home however he does state noncompliance with CPAP overnight due to discomfort. In the emergency department, vital signs are significant for an elevated blood pressure 193/104 as well as oxygen dependence. He is currently tolerating BiPAP with oxygen saturations in the mid to high 90s. Laboratory results were significant for baseline kidney function with BUN/creatinine 27/2.36, glucose of 252, troponin 0.04, BNP of 151. Patient is afebrile and has no white count elevation. Chest x-ray obtained emergency [place] shows cardiomegaly with mild interstitial pulmonary edema. Most recent echocardiogram on 01/29/18 shows an ejection fraction of 60% with mild diastolic dysfunction. Past medical history as above Past surgical history includes left cataract replacement Former smoker quitting approximately 15 years ago. Rare alcohol use, denies any drug use. Past Med Surg Social Fam HX - Past Medical History Medical history: arthritis, CHF, coronary artery disease, CVA, diabetes, hyperlipidemia, hypertension, myocardial infarction, renal disease Additional medical history: color blind. stage III renal failure Psychiatric history: no psych history - Past Surgical History Surgical History: cataract - Social History Smoking Status: Former smoker Smokeless Tobacco Status: No Alcohol use: occasionally Drug use: none - Family History Brother Adopted: No Family Member Ethnicity: Non- Living Status: Hx Family Cardiac Disorders: Yes (CABG, valve replacement) Hx Family Respiratory Disorders: No Hx Family Cancer: Yes (Hodgkins dz) Hx Family GI Disorders: No Hx Family Endocrine Disorder: No Hx Family Neuromuscular Disorders: No Hx Family Neurologic Disorders: No Hx Family HEENT Disorders: Yes (blind in one eye) Hx Family Autoimmune Disorders: No Internal Medicine - H&P: Meds Amlodipine Besylate 10 mg PO DAILY 03/29/16 [History] Atorvastatin [Lipitor] 40 mg PO HS 03/29/16 [History] Losartan Potassium [Cozaar] 100 mg PO DAILY 03/29/16 [History] Potassium Chloride [Klor-Con Sprinkle] 20 meq PO TID 03/29/16 [History] Aspirin [Lo-Dose Aspirin EC] 81 mg PO DAILY 05/26/17 [History] BuPROPion XL (24 HR) [Wellbutrin Xl] 150 mg PO DAILY 05/26/17 [History] Hydralazine HCl 50 mg PO TID #90 tablet 05/30/17 [Rx] Clopidogrel [Plavix] 75 mg PO DAILY 08/09/17 [History] Fish Oil/Dha/Epa [Fish Oil 1,200 mg Fish Oil] 1 each PO DAILY 08/09/17 [History] Tamsulosin HCl [Flomax] 0.4 mg PO DAILY 08/09/17 [History] Acetaminophen [Tylenol Arthritis] 1,300 mg PO Q8H PRN 10/08/17 [History] Cholecalciferol (D-3) [Vitamin D] 5,000 unit PO DAILY 10/08/17 [History] Niacin [Niaspan] 1,000 mg PO DAILY 10/08/17 [History] Subcutaneous Insulin Pump [T:Slim] 1 each MC AD 10/08/17 [History] Ezetimibe [Zetia] 10 mg PO DAILY 01/08/18 [History] Chlorthalidone 25 mg PO DAILY 01/29/18 [History] Fenofibrate Nanocrystallized [Triglide] 160 mg PO DAILY 01/29/18 [History] Levothyroxine [Synthroid] 37.5 mcg PO DAILY 01/29/18 [History] Ferrous Sulfate 325 mg PO DAILY@0800 #30 tablet 02/06/18 [Rx] Isosorbide DInitrate [Isordil] 10 mg PO TIDAC #90 tablet 02/06/18 [Rx] 3 Allergy/AdvReac Type Severity Reaction Status Date / Time Penicillins Allergy Hives Verified 02/18/18 20:36 All Systems PM: A 10-system review of systems was performed and is negative for pertinent findings except as documented above in the HPI. - Constitutional Constitutional: no chills, no fatigue, no fever(s), no lethargy, no malaise, no weakness - Cardiovascular Cardiovascular ROS IM: dyspnea, dyspnea on exertion, edema, orthopnea, paroxysmal nocturnal dyspnea, no chest pain, no diaphoresis, no lightheadedness , no palpitations, no syncope - Respiratory Respiratory: dyspnea, dyspnea on exertion, no cough, no hemoptysis, no wheezing , no change in phlegm color - Gastrointestinal Gastrointestinal: no abdominal pain, no diarrhea, no hematemesis, no hematochezia, no nausea, no vomiting - Integumentary Integumentary IM: no rash - Neurological Neurological ROS: no numbness, no tingling - Constitutional Vitals: Temp Pulse Resp BP Pulse Ox 97.9 F 85 22 189/98 95 02/18/18 20:32 02/18/18 22:22 02/18/18 23:01 02/18/18 23:01 02/18/18 22:57 Exam: Gen.: Vitals noted. No acute distress. AAOx3. Sitting up in bed and speaking in full sentences on BiPAP. Morbidly obese HEENT: PERRL/EOMI, oropharynx clear, Normocephalic, atraumatic, MMM Cardiac: RRR, no murmur, +S1/S2 Pulmonary: Mild wheezes diffusely, otherwise clear to auscultation equal chest expansion Abdomen: soft, nontender, BS noted, no guarding. Anasarca, mild MSK: ROM intact, no joint swelling noted Extremities: 3+ bilateral lower extremity edema, nontender calf, no cyanosis or clubbing Neuro: A&Ox3, moves all extremities, no focal deficits Psych: Appropriate mood and behavior Internal Med - H&P Results - Labs CBC & Chem 7: 02/18/18 22:08 02/18/18 21:11 - Assessment and plan (1) Acute respiratory failure with hypoxia Current Visit: Yes Status: Acute Assessment and plan: Likely secondary to acute exacerbation of heart failure with preserved ejection fraction - Likely secondary to discontinuation of Lasix - Reports associated lower extremity edema, orthopnea, PND. Anasarca on exam - Denies any symptoms of fever, cough, no elevation of WBC that may indicate pneumonia or COPD exacerbation - Chest x-ray emerged department shows cardiomegaly with mild interstitial pulmonary edema, BNP of 151 - Most recent echocardiogram on 01/29/18 showed an ejection fraction of 60% with mild diastolic dysfunction - Currently tolerating BiPAP therapy without complaint, saturating mid 90s Plan - Continue BiPAP therap and wean oxygen as able - Lasix 40 mg IV twice a day - Fluid restriction diet, 1.5 L - Strict I/Os, daily weights - Continue to monitor respiratory status as well as renal function (currently at baseline) (2) CHF exacerbation Current Visit: Yes Status: Acute Assessment and plan: - As above for acute respiratory failure with hypoxia Qualifiers: Heart failure type: diastolic Qualified Code(s): I50.9 - Heart failure, unspecified (3) Hypertension Current Visit: Yes Status: Acute Assessment and plan: - Uncontrolled hypertension with most recent reading of 193/104 - Patient states that he did not take any of his evening medications but otherwise has been compliant - We will restart his home medications and monitor - No symptoms including chest pain, headache, abdominal pain. No signs of end organ damage on laboratory results - We will hold LUZ inhibitor in anticipation for diuresis in the setting of CKD Qualifiers: Hypertension type: other secondary hypertension Qualified Code(s): I15.8 - Other secondary hypertension (4) CKD (chronic kidney disease) stage 3, GFR 30-59 ml/min Current Visit: Yes Status: Chronic Assessment and plan: - Stage III chronic kidney disease with most recent BUNs/creatinine of 27/2.36 - Baseline creatinine ranging from 2.2-2.8 Plan - Avoid nephrotoxic agents - Monitor closely given anticipation of diuresis (5) DM2 (diabetes mellitus, type 2) Current Visit: Yes Status: Chronic Assessment and plan: - Type 2 diabetes, insulin-dependent - Patient has insulin pump at home reportedly using 20 units with each meal, continuous drip - Blood sugar uncontrolled on presentation at 252. 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: with prison use Diabetes mellitus complication status: with kidney complications Diabetes mellitus complication detail: with chronic kidney disease Chronic kidney disease stage : stage 3 (moderate) Qualified Code(s): E11.22 - Type 2 diabetes mellitus with diabetic chronic kidney disease; N18.3 - Chronic kidney disease, stage 3 ( moderate); Z79.4 - [facility]FP (current) use of insulin (6) Morbid obesity with BMI of 40.0-44.9, adult Current Visit: Yes Status: Chronic Assessment and plan: - Encourage weight loss - Patient has notably gained weight since last admission, likely secondary to fluid overload (7) TANGELA (obstructive sleep apnea) Current Visit: Yes Status: Chronic Assessment and plan: - Patient reports noncompliance with CPAP secondary to discomfort - Patient currently tolerating BiPAP - Encouraged compliance as outpatient (8) COPD (chronic obstructive pulmonary disease) Current Visit: Yes Status: Chronic Assessment and plan: - More likely etiology of shortness of breath includes congestive heart failure exacerbation - We will hold off on antibiotics and steroid therapy at this time Qualifiers: COPD type: unspecified COPD Qualified Code(s): J44.9 - Chronic obstructive pulmonary disease, unspecified (9) DVT prophylaxis Current Visit: Yes Status: Acute Assessment and plan: Heparin 5000 units every 12 hours (10) CAD (coronary artery disease) Current Visit: Yes Status: Chronic Assessment and plan: - Stable, chronic CAD - History of myocardial infarction - Continue home aspirin, Plavix. Consider beta elmer Qualifiers: Coronary Disease-Associated Artery/Lesion type: [place] artery [place] vs. transplanted heart: [place] heart Associated angina: without angina Qualified Code(s): I25.10 - Atherosclerotic heart disease of [place] coronary artery without angina pectoris - Time Spent With Patient Total time spent is greater than 50% in coordination of care (as documented) at patient's floor/unit and/or counseling patient: <Oneal Banuelos - Last Filed: 02/19/18 06:12> Date of Encounter: 02/18/18 Internal Medicine - H&P: HPI History of present illness: Mr. Frederick is a 58 year old male All Systems PM: A 10-system review of systems was performed and is negative for pertinent findings except as documented above in the HPI. - Constitutional Vitals: Temp Pulse Resp BP Pulse Ox 97.7 F 65 15 186/96 94 02/19/18 03:41 02/19/18 03:41 02/19/18 04:44 02/19/18 04:44 02/19/18 04:44 Internal Med - H&P Results - Labs CBC & Chem 7: 02/19/18 04:46 02/19/18 04:46 Labs: Short CBC 02/19/18 Range/Units 04:46 WBC 7.7 (4.3-11.1) K/mcL Hgb 11.2 L (12.9-16.9) g/dL Hct 33.2 L (37.5-50.1) % Plt Count 188 (140-400) K/mcL Neutrophils # 5.6 (1.6-8.9) K/mcL BMP 02/19/18 04:46 Sodium 140 Potassium 3.2 L Chloride 104 Carbon Dioxide 27 BUN 26 H Creatinine 2.29 H Glucose 130 H Calcium 9.3 - Attending Attestation I have seen patient and performed my own history and physical examination. I have discussed the case with the admitting resident physician, and I agree with his assessment and plan as documented in his H&P. Briefly, patient admitted for acute respiratory failure with hypoxia likely secondary to acute exacerbation of CHF with preserved ejection fraction. Patient will be admitted inpatient with telemetry. At the time of my examination, he is on 3L NC and not in respiratory distress. Will schedule duonebs and consult RT. Continue to wean supplemental O2 as tolerated, and use BiPAP PRN. Start TEDs. Strict I& Os with daily weights. Fluid restricted, sodium restricted, cardiac diet. Continue lasix 40 mg IV BID. Will monitor renal function with diuresis. He was discontinued on lasix due to concern for worsening CKD, but he may need to be on it outpatient and we will need to determine optimal dose to preserve renal function. We will also need to stress the importance of compliance with BiPAP at home. Repeat labwork in AM. 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 Diabetes mellitus complication status: with kidney complications Diabetes mellitus complication detail: with chronic kidney disease Chronic kidney disease stage : stage 3 (moderate) Qualified Code(s): E11.22 - Type 2 diabetes mellitus with diabetic chronic kidney disease; N18.3 - Chronic kidney disease, stage 3 ( moderate); Z79.4 - [facility] (current) use of insulin (4) Morbid obesity with BMI of 40.0-44.9, adult Current Visit: Yes Status: Chronic (5) CHF exacerbation Current Visit: Yes Status: Acute Qualifiers: Heart failure type: diastolic Qualified Code(s): I50.9 - Heart failure, unspecified (6) TANGELA (obstructive sleep apnea) Current Visit: Yes Status: Chronic (7) Acute respiratory failure with hypoxia Current Visit: Yes Status: Acute (8) Hypertension Current Visit: Yes Status: Acute Qualifiers: Hypertension type: other secondary hypertension Qualified Code(s): I15.8 - Other secondary hypertension (9) COPD (chronic obstructive pulmonary disease) Current Visit: Yes Status: Chronic Qualifiers: COPD type: unspecified COPD Qualified Code(s): J44.9 - Chronic obstructive pulmonary disease, unspecified (10) CAD (coronary artery disease) Current Visit: Yes Status: Chronic Qualifiers: Coronary Disease-Associated Artery/Lesion type: [place] artery [place] vs. transplanted heart: [place] heart Associated angina: without angina Qualified Code(s): I25.10 - Atherosclerotic heart disease of [place] coronary artery without angina pectoris - Time Spent With Patient Total time spent is greater than 50% in coordination of care (as documented) at patient's floor/unit and/or counseling patient:
[2018-02-19] MEDS ORDERED: *HR* HYDROcodone/Acet 5/325 mg TABLET PO PRN (00:16)
[2018-02-19] MEDS ORDERED: Naloxone 0.4 MG/ML INJ IVP PRN (00:16)
[2018-02-19] MEDS ORDERED: D5% in Water 1,000 ML IVC PRN (00:18)
[2018-02-19] MEDS ORDERED: *HR* Dextrose 50 % in Water (Syg) 50 ML SYRINGE IVP PRN (00:18)
[2018-02-19] MEDS ORDERED: Dextrose Gel 15 GM/37.5 ML TUBE PO PRN ×2 (00:18)
[2018-02-19] MEDS: Melatonin 3 MG TABLET PO SCH ×2 (01:55→21:28)
[2018-02-19] MEDS: Furosemide 40 MG/4 ML VIAL IVP SCH ×3 (01:55→16:51)
[2018-02-19] MEDS ORDERED: hydrALAZINE 10 MG TABLET PO PRN (04:18)
[2018-02-19] MEDS: *HR* Heparin 5,000 UNIT/ML VIAL SQ SCH ×2 (05:07→18:02)
[2018-02-19 05:14] LABS: Basophils # 0.1 K/mcL (0.0-0.2); Basophils % 0.8 %; Eosinophils # 0.2 K/mcL (0.0-0.6); Eosinophils % 2.5 %; Hematocrit 33.2 % (37.5-50.1); Hemoglobin 11.2 g/dL (12.9-16.9); Immature Granulocytes % 0.6 % (0-4); Lymphocytes # 1.3 K/mcL (0.6-4.6); Lymphocytes % 16.4 %; Mean Corpuscular HGB Conc 33.7 g/dL (31.6-35.5); Mean Corpuscular Hemoglobin 27.9 pg (28.0-33.3); Mean Corpuscular Volume 82.8 fL (83.0-100.0); Mean Platelet Volume 9.6 fL (9.4-12.4); Monocytes # 0.6 K/mcL (0.0-1.3); Monocytes % 7.5 %; Neutrophils # 5.6 K/mcL (1.6-8.9); Platelet Count 188 K/mcL (140-400); Red Blood Count 4.01 M/mcL (4.19-5.50); Red Cell Distribution Width 14.4 % (11.5-14.5); Segmented Neutrophils % 72.2 %
[2018-02-19 05:30] LABS: Calcium 9.3 mg/dL (8.6-10.3); Potassium 3.2 mEq/L (3.5-5.1)
[2018-02-19] MEDS ORDERED: Albuterol 2.5 MG/3 ML NEBULIZER IH PRN (06:03)
[2018-02-19] MEDS: Ipratropium/Albuterol Neb 3 ML IH SCH ×4 (06:37→21:22)
[2018-02-19] MEDS: Loratadine 10 MG TABLET PO SCH (06:46)
[2018-02-19] MEDS ORDERED: Insulin LISPRO 300 UNITS/3 ML VIAL SQ SCH (07:30)
[2018-02-19] MEDS: Aspirin Enteric Coated 81 MG Tablet PO SCH (07:57)
[2018-02-19] MEDS: hydrALAZINE 25 MG TABLET PO SCH ×3 (07:57→21:29)
[2018-02-19] MEDS: amLODIPine 5 MG TABLET PO SCH (07:57)
[2018-02-19] MEDS: BuPROPion XL (24 HR) 150 MG TABLET PO SCH (07:57)
[2018-02-19 08:34] LABS: Estimated Average Glucose 246 mg/dl; Hemoglobin A1C 10.2 %
--- NOTE | 2018-02-19 10:15 | Event Note ---
Date of Encounter: 02/19/18 Time of Encounter: 09:48 CC: SOB HPI: 58 year old male with PMH of diastolic CHF, CAD, CVA, diabetes, hyperlipidemia, hypertension, stage III kidney disease, COPD presented to ER with shortness of breath. He states that symptoms began yesterday morning and were gradual. He was recently discharged from this facility on 02/06/18 for COPD exacerbation as well as pneumonia. He states his symptoms are exacerbated with lying flat, exertion and has no relieving factors. He denies any symptoms of fevers, chills , cough, chest pain. He does admit to bilateral lower extremity swelling as well as abdominal fullness at this time. Stopped taking his Lasix due to his chronic kidney disease as per PCP instructions. He is not oxygen dependent at home but is noncompliant with CPAP overnight due to discomfort. Most recent echocardiogram on 01/29/18 shows an ejection fraction of 60% with mild diastolic dysfunction. Past medical history as above Past surgical history includes left cataract replacement Allergy: penicillins, hives Former smoker quitting approximately 15 years ago. Rare alcohol use, denies any drug use. Pt denies any complications overnight, he was able to lay down comfortably and get a few hours of sleep last night with CPAP machine. He is currently on nasal cannula air and states his symptoms have significantly improved. He denies any cough, dyspnea, wheeze, angina. He is still experiencing b/l LE edema. O Vitals: temp 98F, HR 65, BP 157/83, RR 17, O2 sat 96 (nasal can) General: AAOx3, NAD, WDWN Heart: RRR, normal S1/S2, no murmurs Lungs: normal effort, no wheeze, mild crackles on lower right side Abd: non tender, soft, BSx4 Ext: b/l lower ext +2 edema A 1. Acute respiratory failure 2. CHF exacerbation 3. HTN 4. CKD stage 3 5. DMII 6. TANGELA 7. DVT prophylaxis 8. CAD P 1. acute respiratory failure likely to the CHF exacerbation continue lasix and nasal can O2 monitor renal and resp status encourage use of CPAP at home, patient states the mask he used here is more comfortable and nurse said he could take it with him 2. CHF Exacerbation same as above 3. HTN restarted at home meds and hydralazine prn 4. CKD stage 3 most recent BUN/CR 26/2.29 baseline Cr 2.2-2.8 avoid nephrotoxic agents 5. DMII continue insulin pump glucose 252 at admission, currently 130 diabetic diet A1c 10.2 6. TANGELA continue CPAP in hospital and encourage compliance at home 7. DVT prophylaxis hepatin 5000 units q 12hr 8. CAD h/o [place] continue aspirin, plavix consider BRADLEY Chris
[2018-02-19] MEDS ORDERED: (Subcutaneous Insulin Pump [T:Slim] 1 EACH) MC SCH (11:15)
--- NOTE | 2018-02-19 16:57 | Electrocardiograph Report ---
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
--- NOTE | 2018-02-19 21:06 | Internal Med Progress Note ---
Hospitalist Progress Note - Encounter Date of Encounter: 02/19/18 Time of Encounter: 09:03 - Subjective Interval History: Patient states breathing better. Denies chest pain, n/v. Edema improving. - Exam Vitals: Temp Pulse Resp BP Pulse Ox 98.3 F 73 18 148/55 93 02/19/18 15:26 02/19/18 15:26 02/19/18 15:27 02/19/18 15:26 02/19/18 15:27 Exam: Gen: NAD CVS: RRR Lungs: Rales throughout, good air exchange Abd: NT/ND Ext: 1+ bipedal pitting edema. - Assessment and Plan (1) Acute respiratory failure with hypoxia Current Visit: Yes Status: Acute Assessment and Plan: Secondary to decompensation of heart failure with preserved ejection fraction - Likely secondary to discontinuation of Lasix recently - Reports associated lower extremity edema, orthopnea, PND. Anasarca on exam - Denies any symptoms of fever, cough, no elevation of WBC that may indicate pneumonia or COPD exacerbation - Chest x-ray emerged department shows cardiomegaly with mild interstitial pulmonary edema, BNP of 151 - Most recent echocardiogram on 01/29/18 showed an ejection fraction of 60% with mild diastolic dysfunction - Required BIPAP on admission but now off of it, now on O2 in no acute distress. Plan: - Lasix 40 mg IV twice a day, diuresis as renal function tolerates. - Fluid restriction diet, 1.5 L - Strict I/Os, daily weights (2) CKD (chronic kidney disease) stage 3, GFR 30-59 ml/min Current Visit: Yes Status: Chronic Assessment and Plan: - Stage III chronic kidney disease with BUNs/creatinine of 27/2.36 on admission Currently at baseline Plan - Avoid nephrotoxic agents - Monitor while receiving diuresis. (3) DM2 (diabetes mellitus, type 2) Current Visit: Yes Status: Chronic Assessment and Plan: - Type 2 diabetes, insulin-dependent - Patient has insulin pump at home reportedly using 20 units with each meal, continuous drip Okay to resume home insulin pump If glucose worsens, will add sliding scale. (4) Morbid obesity with BMI of 40.0-44.9, adult Current Visit: Yes Status: Chronic (5) CHF exacerbation Current Visit: Yes Status: Acute Assessment and Plan: - As above for acute respiratory failure with hypoxia (6) TANGELA (obstructive sleep apnea) Current Visit: Yes Status: Chronic Assessment and Plan: BIPAP/CPAP at night. (7) Hypertension Current Visit: Yes Status: Acute Assessment and Plan: - Uncontrolled hypertension on admission 193/104 - patient was unable to take PO medications at home - Restart home medications (8) COPD (chronic obstructive pulmonary disease) Current Visit: Yes Status: Chronic Assessment and Plan: - More likely etiology of shortness of breath includes congestive heart failure exacerbation - No acute exacerbation (9) CAD (coronary artery disease) Current Visit: Yes Status: Chronic Assessment and Plan: Continue home aspirin, Plavix, lipitor (10) DVT prophylaxis Current Visit: Yes Status: Acute Assessment and Plan: Heparin 5000 units every 12 hours - Time Spent with Patient Total time spent is greater than 50% in coordination of care (as documented) at patient's floor/unit and/or counseling patient: Internal Medicine: Result - Labs CBC & Chem 7: 02/19/18 04:46 02/19/18 04:46 - VTE Documentation of Mechanical Device: Graduated compression elastic hosiery Consult Discharge Plan - Plan Referrals: Jose A Hernandez MD [Primary Care Provider] - (3) DM2 (diabetes mellitus, type 2) Qualifiers: Diabetes mellitus alf insulin use: with alf use Diabetes mellitus complication status: with kidney complications Diabetes mellitus complication detail: with chronic kidney disease Chronic kidney disease stage: stage 3 (moderate) Qualified Code(s): E11.22 - Type 2 diabetes mellitus with diabetic chronic kidney disease; N18.3 - Chronic kidney disease, stage 3 ( moderate); Z79.4 - [facility] (current) use of insulin (5) CHF exacerbation Qualifiers: Heart failure type: diastolic Qualified Code(s): I50.9 - Heart failure, unspecified (7) Hypertension Qualifiers: Hypertension type: other secondary hypertension Qualified Code(s): I15.8 - Other secondary hypertension (8) COPD (chronic obstructive pulmonary disease) Qualifiers: COPD type: unspecified COPD Qualified Code(s): J44.9 - Chronic obstructive pulmonary disease, unspecified (9) CAD (coronary artery disease) Qualifiers: Coronary Disease-Associated Artery/Lesion type: [place] artery [place] vs. transplanted heart: [place] heart Associated angina: without angina Qualified Code(s): I25.10 - Atherosclerotic heart disease of [place] coronary artery without angina pectoris
[2018-02-19] MEDS: Acetaminophen 325 MG TABLET PO PRN (21:29)
[2018-02-20] MEDS: Ipratropium/Albuterol Neb 3 ML IH SCH ×2 (03:59→10:58)
[2018-02-20 05:29] LABS: Basophils % 0.5 %; Eosinophils # 0.2 K/mcL (0.0-0.6); Eosinophils % 2.7 %; Hemoglobin 10.7 g/dL (12.9-16.9); Immature Granulocytes % 0.5 % (0-4); Lymphocytes # 1.2 K/mcL (0.6-4.6); Lymphocytes % 22.3 %; Mean Corpuscular HGB Conc 33.4 g/dL (31.6-35.5); Mean Corpuscular Hemoglobin 27.7 pg (28.0-33.3); Mean Corpuscular Volume 82.9 fL (83.0-100.0); Mean Platelet Volume 9.9 fL (9.4-12.4); Monocytes # 0.5 K/mcL (0.0-1.3); Monocytes % 8.9 %; Neutrophils # 3.6 K/mcL (1.6-8.9); Platelet Count 192 K/mcL (140-400); Red Blood Count 3.86 M/mcL (4.19-5.50); Red Cell Distribution Width 14.3 % (11.5-14.5); Segmented Neutrophils % 65.1 %
[2018-02-20 05:49] LABS: Calcium 9.1 mg/dL (8.6-10.3)
[2018-02-20] MEDS: *HR* Heparin 5,000 UNIT/ML VIAL SQ SCH ×2 (06:13→18:10)
[2018-02-20] MEDS: Fenofibrate 54 MG TABLET PO SCH (09:54)
[2018-02-20] MEDS: Furosemide 40 MG/4 ML VIAL IVP SCH ×2 (09:54→18:10)
[2018-02-20] MEDS: Loratadine 10 MG TABLET PO SCH (09:55)
[2018-02-20] MEDS: hydrALAZINE 25 MG TABLET PO SCH ×3 (09:55→20:43)
[2018-02-20] MEDS: BuPROPion XL (24 HR) 150 MG TABLET PO SCH (09:55)
[2018-02-20] MEDS: Aspirin Enteric Coated 81 MG Tablet PO SCH (09:55)
[2018-02-20] MEDS: amLODIPine 5 MG TABLET PO SCH (09:55)
--- NOTE | 2018-02-20 10:07 | Event Note ---
Date of Encounter: 02/20/18 Time of Encounter: 09:56 58 yo male that initially presented with SOA. Pt states he was able to sleep laying down last night with CPAP. Denies angina, n/v, cough and wheeze. He feels better than yesterday and thinks his swelling is decreasing. He wants to know what he needs to do when he gets home to avoid this happening again. O Vitals: Temp 97.7, HR 74, RR 18, BP 186/91, O2 Sat 94 (nasal Can) gen: NAD, WDWN, AAOx3 Heart: RRR, no murmurs Lungs: normal effort, no cough, CTA b/l Ext: +1 edema in LE - improved from yesterday A 1. Acute respiratory failure 2. CHF exacerbation 3. HTN 4. CKD stage 3 5. DMII 6. TANGELA 7. DVT prophylaxis 8. CAD P 1. acute respiratory failure likely due to the CHF exacerbation continue lasix and wean off nasal can O2 monitor renal and resp status encourage use of CPAP at home, patient states the mask he used here is more comfortable and nurse said he could take it with him 2. CHF Exacerbation same as above need to adjust lasix for home to avoid kidney dysfx 3. HTN BP 186/91 today - high end of pt baseline restarted at home meds and hydralazine prn 4. CKD stage 3 most recent BUN/CR 25/2.49 - ratio of 10 baseline Cr 2.2-2.8 avoid nephrotoxic agents 5. DMII continue insulin pump glucose 252 at admission, currently 117 diabetic diet A1c 10.2 6. TANGELA continue CPAP in hospital and encourage compliance at home 7. DVT prophylaxis hepatin 5000 units q 12hr 8. CAD h/o [place] continue aspirin, plavix consider BRADLEY Chris
[2018-02-20] MEDS: Acetaminophen 325 MG TABLET PO PRN (12:01)
[2018-02-20] MEDS ORDERED: Potassium Chloride Elixir 20 MEQ/15 ML UDC PO ONE (14:48)
--- NOTE | 2018-02-20 17:06 | Internal Med Progress Note ---
Hospitalist Progress Note - Encounter Date of Encounter: 02/20/18 Time of Encounter: 17:07 - Subjective Interval History: Patient states breathing better. Denies chest pain, n/v. Edema improving. - Exam Vitals: Temp Pulse Resp BP Pulse Ox 97.7 F 75 17 173/91 93 02/20/18 15:53 02/20/18 15:53 02/20/18 15:53 02/20/18 15:53 02/20/18 15:53 Exam: Gen: NAD CVS: RRR Lungs: Rales at bases, decreased breath sounds Abd: nt, nd, soft Ext: bipedal edema, 2+ tibial pulses b/l and equal - Assessment and Plan (1) Acute respiratory failure with hypoxia Current Visit: Yes Status: Acute Assessment and Plan: Secondary to decompensation of heart failure with preserved ejection fraction - Likely secondary to discontinuation of Lasix as outpatient - Denies any symptoms of fever, cough, no elevation of WBC that may indicate pneumonia or COPD exacerbation - Chest x-ray emerged department shows cardiomegaly with mild interstitial pulmonary edema, BNP of 151 - Most recent echocardiogram on 01/29/18 showed an ejection fraction of 60% with mild diastolic dysfunction - Required BIPAP on admission but now off of it, now on O2 in no acute distress. Plan: - Lasix 40 mg IV twice a day, as renal function tolerates - Fluid restriction diet, 1.5 L - Strict I/Os, daily weights (2) CKD (chronic kidney disease) stage 3, GFR 30-59 ml/min Current Visit: Yes Status: Chronic Assessment and Plan: Baseline Cr ranges from 2.2-2.8, currently at baseline - Avoid nephrotoxic agents - Monitor while receiving diuresis. (3) DM2 (diabetes mellitus, type 2) Current Visit: Yes Status: Chronic Assessment and Plan: - Patient has insulin pump at home reportedly using 20 units with each meal, continuous drip - Continue home insulin pump If glucose worsens, will add sliding scale. (4) Morbid obesity with BMI of 40.0-44.9, adult Current Visit: Yes Status: Chronic Assessment and Plan: - Encourage weight loss - Patient has notably gained weight since last admission, likely secondary to fluid overload (5) CHF exacerbation Current Visit: Yes Status: Acute Assessment and Plan: - As above for acute respiratory failure with hypoxia (6) TANGELA (obstructive sleep apnea) Current Visit: Yes Status: Chronic Assessment and Plan: BIPAP/CPAP at night. (7) Hypertension Current Visit: Yes Status: Acute Assessment and Plan: - Uncontrolled hypertension on admission 193/104 Continue home medications Hydralazine IV q6h prn (8) COPD (chronic obstructive pulmonary disease) Current Visit: Yes Status: Chronic Assessment and Plan: - More likely etiology of shortness of breath includes congestive heart failure exacerbation - No acute exacerbation (9) CAD (coronary artery disease) Current Visit: Yes Status: Chronic Assessment and Plan: Continue home aspirin, Plavix, lipitor (10) DVT prophylaxis Current Visit: Yes Status: Acute Assessment and Plan: Heparin 5000 units every 12 hours - Time Spent with Patient Total time spent is greater than 50% in coordination of care (as documented) at patient's floor/unit and/or counseling patient: Internal Medicine: Result - Labs CBC & Chem 7: 02/20/18 04:55 02/20/18 04:55 Labs: Short CBC 02/20/18 Range/Units 04:55 WBC 5.5 (4.3-11.1) K/mcL Hgb 10.7 L (12.9-16.9) g/dL Hct 32.0 L (37.5-50.1) % Plt Count 192 (140-400) K/mcL Neutrophils # 3.6 (1.6-8.9) K/mcL BMP 02/20/18 04:55 Sodium 141 Potassium 3.0 L Chloride 102 Carbon Dioxide 32 H BUN 25 H Creatinine 2.49 H Glucose 117 H Calcium 9.1 - VTE Documentation of Mechanical Device: Intermittent pneumatic compression device Consult Discharge Plan - Plan Referrals: Jose A Hernandez MD [Primary Care Provider] - (3) DM2 (diabetes mellitus, type 2) Qualifiers: Diabetes mellitus prison insulin use: with rebrander use Diabetes mellitus complication status: with kidney complications Diabetes mellitus complication detail: with chronic kidney disease Chronic kidney disease stage: stage 3 (moderate) Qualified Code(s): E11.22 - Type 2 diabetes mellitus with diabetic chronic kidney disease; N18.3 - Chronic kidney disease, stage 3 ( moderate); Z79.4 - [employer] message [employer] 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 transplanted heart: [place] heart Associated angina: without angina Qualified Code(s): I25.10 - Atherosclerotic heart disease of [place] coronary artery without angina pectoris
[2018-02-20] MEDS: cloNIDine HCl 0.1 MG TABLET PO SCH (20:43)
[2018-02-20] MEDS: Melatonin 3 MG TABLET PO SCH (20:43)
[2018-02-21 03:49] LABS: Basophils % 0.5 %; Eosinophils # 0.2 K/mcL (0.0-0.6); Eosinophils % 3.3 %; Hematocrit 33.1 % (37.5-50.1); Hemoglobin 11.1 g/dL (12.9-16.9); Immature Granulocytes % 0.5 % (0-4); Lymphocytes # 1.2 K/mcL (0.6-4.6); Mean Corpuscular HGB Conc 33.5 g/dL (31.6-35.5); Mean Corpuscular Hemoglobin 28.2 pg (28.0-33.3); Mean Corpuscular Volume 84.2 fL (83.0-100.0); Mean Platelet Volume 9.8 fL (9.4-12.4); Monocytes # 0.6 K/mcL (0.0-1.3); Monocytes % 9.8 %; Neutrophils # 3.8 K/mcL (1.6-8.9); Platelet Count 190 K/mcL (140-400); Red Blood Count 3.93 M/mcL (4.19-5.50); Red Cell Distribution Width 14.1 % (11.5-14.5); Segmented Neutrophils % 64.9 %
[2018-02-21 04:13] LABS: Calcium 9.9 mg/dL (8.6-10.3); Potassium 3.3 mEq/L (3.5-5.1)
[2018-02-21] MEDS: *HR* Heparin 5,000 UNIT/ML VIAL SQ SCH ×2 (05:42→18:40)
--- NOTE | 2018-02-21 08:57 | Event Note ---
<Molly Linton - Last Filed: 02/21/18 15:41> Date of Encounter: 02/21/18 Time of Encounter: 08:40 58 yo male that initially presented with SOA. Pt had no compliants overnight, and slept well, was awoken early this morning and has been napping this morning. He states that he feels betters than yesterday and that his swelling is decreased in his ankles, and he has stopped wearing the compression socks. He has a current list of his at home medications that his brought over. He feels like he is breathing easier and feels stronger. O Vitals: Temp 98.1, HR 60, RR 16, BP 150/70, O2 Sat 95 (nasal Can) gen: AAOx3, NAD, WDWN Heart: RRR, no murmurs Lungs: normal effort, mild crackles at base of lungs Ext: swelling decreased in LEs A 1. Acute respiratory failure 2. CHF exacerbation 3. TANGELA 4. CKD stage 3 5. DMII 6. obesity, BMI 40-45 7. DVT prophylaxis 8. CAD P 1. acute respiratory failure likely due to the CHF exacerbation fluid restriction diet pt has lost ~10lb since admission; still up 15lb from 08/09 continue lasix and wean off nasal can O2 monitor renal and resp status 2. CHF Exacerbation same as above need to adjust lasix for home to avoid kidney dysfx 3. TANGELA continue CPAP in hospital and encourage compliance at home 4. CKD stage 3 most recent BUN/CR 26/2.5 - ratio of 10 baseline Cr 2.2-2.8 avoid nephrotoxic agents 5. DMII continue insulin pump glucose 252 at admission, currently 128 diabetic diet A1c 10.2 6. obesity, BMI 40-45 pt has lost ~10lb since admission; likely due to fluid loss pt weighed 284 on 06/08 and currently up 20 lb (304lb) encourage weight loss and exercise 7. DVT prophylaxis hepatin 5000 units q 12hr 8. CAD h/o [place] continue aspirin, plavix, lipitor started on carvedilol BRADLEY Hope <Brian Carlos - Last Filed: 02/21/18 16:43> Date of Encounter: 02/21/18 I have seen and examined patient. Medical student note reviewed.
[2018-02-21] MEDS: Furosemide 40 MG/4 ML VIAL IVP SCH ×2 (09:38→16:14)
[2018-02-21] MEDS: aMILoride 5 MG TABLET PO SCH (09:38)
[2018-02-21] MEDS: hydrALAZINE 25 MG TABLET PO SCH ×3 (09:38→21:38)
[2018-02-21] MEDS: Aspirin Enteric Coated 81 MG Tablet PO SCH (09:39)
[2018-02-21] MEDS: Fenofibrate 54 MG TABLET PO SCH (09:39)
[2018-02-21] MEDS: BuPROPion XL (24 HR) 150 MG TABLET PO SCH (09:39)
[2018-02-21] MEDS: Loratadine 10 MG TABLET PO SCH (09:39)
[2018-02-21] MEDS: amLODIPine 5 MG TABLET PO SCH (09:39)
[2018-02-21] MEDS: cloNIDine HCl 0.1 MG TABLET PO SCH ×2 (09:40→21:38)
--- NOTE | 2018-02-21 16:47 | Internal Med Progress Note ---
Hospitalist Progress Note - Encounter Date of Encounter: 02/21/18 Time of Encounter: 13:20 - Subjective Interval History: Breathing now at baseline. Still on O2, however. Edema still present but improving. Denies chest pain, n/v, fevers/chills. - Exam Vitals: Temp Pulse Resp BP Pulse Ox 98.1 F 56 16 166/95 93 02/21/18 15:00 02/21/18 15:00 02/21/18 15:00 02/21/18 15:00 02/21/18 15:00 Exam: Gen: NAD, CVS: RRR Lungs: improved air exchange bilaterally, near resolution of rales since my exam yesterday. Ext: 2+ bipedal pitting edema - Assessment and Plan (1) Acute respiratory failure with hypoxia Current Visit: Yes Status: Acute Assessment and Plan: Secondary to decompensation of heart failure with preserved ejection fraction - Likely secondary to discontinuation of Lasix as outpatient - Chest x-ray in ED showed cardiomegaly with edema, BNP of 151 - Most recent echocardiogram on 01/29/18 showed an ejection fraction of 60% with mild diastolic dysfunction Plan: - Lasix 40 mg IV twice a day, as renal function tolerates - Fluid restriction diet, Strict I/Os, daily weights Disposition: - Anticipate discharge tomorrow, weaning O2 to room air, may need to test if qualifies for home O2. - Likely will need 20-40 mg Lasix PO daily for home medication. (2) CKD (chronic kidney disease) stage 3, GFR 30-59 ml/min Current Visit: Yes Status: Chronic Assessment and Plan: Baseline Cr ranges from 2.2-2.8, currently at baseline - Avoid nephrotoxic agents - Monitor while receiving diuresis. (3) DM2 (diabetes mellitus, type 2) Current Visit: Yes Status: Chronic Assessment and Plan: - Patient has insulin pump at home reportedly using 20 units with each meal, continuous drip - Continue home insulin pump (4) Morbid obesity with BMI of 40.0-44.9, adult Current Visit: Yes Status: Chronic Assessment and Plan: - Encourage weight loss - Patient has notably gained weight since last admission, likely secondary to fluid overload (5) CHF exacerbation Current Visit: Yes Status: Acute Assessment and Plan: - As above for acute respiratory failure with hypoxia (6) TANGELA (obstructive sleep apnea) Current Visit: Yes Status: Chronic Assessment and Plan: BIPAP/CPAP at night. (7) Hypertension Current Visit: Yes Status: Acute Assessment and Plan: - Uncontrolled hypertension on admission 193/104 Continue home medications Hydralazine IV q6h prn (8) COPD (chronic obstructive pulmonary disease) Current Visit: Yes Status: Chronic Assessment and Plan: - More likely etiology of shortness of breath includes congestive heart failure exacerbation - No acute exacerbation (9) CAD (coronary artery disease) Current Visit: Yes Status: Chronic Assessment and Plan: Continue home aspirin, Plavix, lipitor (10) DVT prophylaxis Current Visit: Yes Status: Acute Assessment and Plan: Heparin 5000 units every 12 hours - Time Spent with Patient Total time spent is greater than 50% in coordination of care (as documented) at patient's floor/unit and/or counseling patient: Internal Medicine: Result - Labs CBC & Chem 7: 02/21/18 03:20 02/21/18 03:20 Labs: Short CBC 02/21/18 Range/Units 03:20 WBC 5.8 (4.3-11.1) K/mcL Hgb 11.1 L (12.9-16.9) g/dL Hct 33.1 L (37.5-50.1) % Plt Count 190 (140-400) K/mcL Neutrophils # 3.8 (1.6-8.9) K/mcL BMP 02/21/18 03:20 Sodium 140 Potassium 3.3 L Chloride 101 Carbon Dioxide 33 H BUN 26 H Creatinine 2.50 H Glucose 128 H Calcium 9.9 - VTE Documentation of Mechanical Device: Graduated compression elastic hosiery Consult Discharge Plan - Plan Referrals: Jose A Hernandez MD [Primary Care Provider] - (3) DM2 (diabetes mellitus, type 2) Qualifiers: Diabetes mellitus mcc insulin use: with mcc use Diabetes mellitus complication status: with kidney complications Diabetes mellitus complication detail: with chronic kidney disease Chronic kidney disease stage: stage 3 (moderate) Qualified Code(s): E11.22 - Type 2 diabetes mellitus with diabetic chronic kidney disease; N18.3 - Chronic kidney disease, stage 3 ( moderate); Z79.4 - termite helper (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 transplanted heart: [place] heart Associated angina: without angina Qualified Code(s): I25.10 - Atherosclerotic heart disease of [place] coronary artery without angina pectoris
[2018-02-21] MEDS: Acetaminophen 325 MG TABLET PO PRN (21:37)
[2018-02-21] MEDS: Melatonin 3 MG TABLET PO SCH (21:37)
[2018-02-22 01:45] LABS: Basophils % 0.8 %; Eosinophils # 0.2 K/mcL (0.0-0.6); Eosinophils % 3.5 %; Hematocrit 32.4 % (37.5-50.1); Hemoglobin 10.8 g/dL (12.9-16.9); Immature Granulocytes % 0.6 % (0-4); Lymphocytes # 1.2 K/mcL (0.6-4.6); Mean Corpuscular HGB Conc 33.3 g/dL (31.6-35.5); Mean Corpuscular Hemoglobin 28.1 pg (28.0-33.3); Mean Corpuscular Volume 84.4 fL (83.0-100.0); Mean Platelet Volume 10.2 fL (9.4-12.4); Monocytes # 0.5 K/mcL (0.0-1.3); Monocytes % 9.6 %; Neutrophils # 3.2 K/mcL (1.6-8.9); Platelet Count 178 K/mcL (140-400); Red Blood Count 3.84 M/mcL (4.19-5.50); Segmented Neutrophils % 61.5 %
[2018-02-22 02:11] LABS: Calcium 9.5 mg/dL (8.6-10.3); Potassium 3.3 mEq/L (3.5-5.1)
[2018-02-22] MEDS: *HR* Heparin 5,000 UNIT/ML VIAL SQ SCH (04:53)
[2018-02-22] MEDS: hydrALAZINE 25 MG TABLET PO SCH ×2 (08:33→13:36)
[2018-02-22] MEDS: amLODIPine 5 MG TABLET PO SCH (08:33)
[2018-02-22] MEDS: Fenofibrate 54 MG TABLET PO SCH (08:33)
[2018-02-22] MEDS: Aspirin Enteric Coated 81 MG Tablet PO SCH (08:33)
[2018-02-22] MEDS: Loratadine 10 MG TABLET PO SCH (08:34)
[2018-02-22] MEDS: aMILoride 5 MG TABLET PO SCH (08:34)
[2018-02-22] MEDS: BuPROPion XL (24 HR) 150 MG TABLET PO SCH (08:34)
[2018-02-22] MEDS: Furosemide 40 MG/4 ML VIAL IVP SCH (08:34)
[2018-02-22] MEDS: cloNIDine HCl 0.1 MG TABLET PO SCH (08:34)
--- NOTE | 2018-02-22 10:28 | Event Note ---
<Molly Linton - Last Filed: 02/22/18 15:07> Date of Encounter: 02/22/18 Time of Encounter: 10:20 58 yo male that initially presented with SOA. Pt had no complaints overnight, and slept well. He states that he feels betters than yesterday and is able to breathe without the nasal can constantly. He thinks that his swelling is decreased in his ankles, and is almost back to normal. He says he was up and walking around this morning in hallway and has been trying to use spirometer every hour. He states he was told he might need O2 at home prn and that he is probably getting d/c today. He did mention that he sweats profusely whenever he eats and wonders if this is an issue. He denies any cough, wheeze, angina, [place]. O Vitals: Temp 97.1, HR 58, RR 17, BP 129/765, O2 Sat 93 gen: AAOx3, NAD, WDWN Heart: RRR, no murmurs Lungs: normal effort, mild crackles at base of lungs Ext: swelling decreased in LEs A 1. Acute respiratory failure 2. CHF exacerbation 3. TANGELA 4. CKD stage 3 5. DMII 6. obesity, BMI 40-45 7. DVT prophylaxis 8. CAD P 1. acute respiratory failure likely due to the CHF exacerbation fluid restriction diet continue lasix and wean off nasal can O2, challenge spirometer 6x/hr monitor renal and resp status - lasix held today due to Cr (2.7) 2. CHF Exacerbation same as above need to adjust lasix for home to avoid kidney dysfx 3. TANGELA continue CPAP in hospital and encourage compliance at home 4. CKD stage 3 most recent BUN/CR 28/2.7 - ratio of 10 Lasix held this morning baseline Cr 2.2-2.8 avoid nephrotoxic agents 5. DMII continue insulin pump glucose 252 at admission, currently 196 diabetic diet A1c 10.2 6. obesity, BMI 40-45 pt weighed 284 on 06/08 and currently up 20 lb (304lb) encourage weight loss and exercise 7. DVT prophylaxis hepatin 5000 units q 12hr 8. CAD h/o PR continue aspirin, plavix, lipitor started on carvedilol BRADLEY Hope <Brian Carlos - Last Filed: 03/05/18 17:46> Date of Encounter: 03/05/18 I have independently examined patient. Please see attending progress note for further details.
[2018-02-22 11:34] VITALS: BP 124/60
[2018-02-22] MEDS ORDERED: (Subcutaneous Insulin Pump [T:Slim] 1 EACH) MC SCH (13:30)
--- NOTE | 2018-02-22 14:20 | Discharge Summary ---
- NOTES TO OUTPATIENT PROVIDER Notes to Outpatient Provider: - Repeat BMP. - Reassess need for Lasix Date of Encounter: 02/22/18 Time of Encounter: 14:18 - Discharge Diagnosis (1) Acute respiratory failure with hypoxia Priority: Primary Status: Acute (2) CKD (chronic kidney disease) stage 3, GFR 30-59 ml/min Priority: Secondary Status: Chronic (3) DM2 (diabetes mellitus, type 2) Priority: Secondary Status: Chronic Qualifiers: Diabetes mellitus prison insulin use: with prison use Diabetes mellitus complication status: with kidney complications Diabetes mellitus complication detail: with chronic kidney disease Chronic kidney disease stage : stage 3 (moderate) Qualified Code(s): E11.22 - Type 2 diabetes mellitus with diabetic chronic kidney disease; N18.3 - Chronic kidney disease, stage 3 ( moderate); Z79.4 - USP (current) use of insulin (4) Morbid obesity with BMI of 40.0-44.9, adult Priority: Secondary Status: Chronic (5) CHF exacerbation Priority: Secondary Status: Acute Qualifiers: Heart failure type: diastolic Qualified Code(s): I50.9 - Heart failure, unspecified (6) TANGELA (obstructive sleep apnea) Priority: Secondary Status: Chronic (7) Hypertension Priority: Secondary Status: Acute Qualifiers: Hypertension type: other secondary hypertension Qualified Code(s): I15.8 - Other secondary hypertension (8) COPD (chronic obstructive pulmonary disease) Priority: Secondary Status: Chronic Qualifiers: COPD type: unspecified COPD Qualified Code(s): J44.9 - Chronic obstructive pulmonary disease, unspecified (9) CAD (coronary artery disease) Priority: Secondary Status: Chronic Qualifiers: Coronary Disease-Associated Artery/Lesion type: [place] artery [place] vs. transplanted heart: [place] heart Associated angina: without angina Qualified Code(s): I25.10 - Atherosclerotic heart disease of [place] coronary artery without angina pectoris (10) DVT prophylaxis Priority: Secondary Status: Acute Hospital course: Mr. Frederick is a 58 year old male with past medical history of diastolic CHF, CAD, CVA, diabetes, hyperlipidemia, hypertension, stage III kidney disease, COPD presented to ED for dyspnea. He was discharged recently from facility on for COPD exacerbation and pneumonia. On day of admission patient had orthopnea and lower extremity edema, without any relieving factors. No fevers/ cough/chest pain/fevers. After follow-up with primary care physician after last hospital discharge told him to stop taking Lasix due to chronic kidney disease. In the ED patient was hyperensive at 193/104, and required oxygen. He required BIPAP. He was treated for CHF exacerbation with Lasix, fluid restriction. Patient respiratory status improved but he did qualify for home O2 on discharge. He was discharged home in stable condition with PO Lasix 40 mg daily for 20 weeks. He has close follow-up with Nephrology appointment already scheduled. - Time Spent with Patient Total time spent providing and/or coordinating discharge services: - Discharge Medications Prescriptions: aMILoride [Midamor] 10 mg PO DAILY #30 tablet Home Medications: Amlodipine Besylate 10 mg PO DAILY 03/29/16 [History] Atorvastatin [Lipitor] 40 mg PO HS 03/29/16 [History] Losartan Potassium [Cozaar] 100 mg PO DAILY 03/29/16 [History] Potassium Chloride [Klor-Con Sprinkle] 20 meq PO TID 03/29/16 [History] Aspirin [Lo-Dose Aspirin EC] 81 mg PO DAILY 05/26/17 [History] BuPROPion XL (24 HR) [Wellbutrin Xl] 150 mg PO DAILY 05/26/17 [History] Hydralazine HCl 50 mg PO TID #90 tablet 05/30/17 [Rx] Clopidogrel [Plavix] 75 mg PO DAILY 08/09/17 [History] Tamsulosin HCl [Flomax] 0.4 mg PO DAILY 08/09/17 [History] Acetaminophen [Tylenol Arthritis] 1,300 mg PO Q8H PRN 10/08/17 [History] Cholecalciferol (D-3) [Vitamin D] 5,000 unit PO DAILY 10/08/17 [History] Niacin [Niaspan] 1,000 mg PO DAILY 10/08/17 [History] Subcutaneous Insulin Pump [T:Slim] 1 each MC AD 10/08/17 [History] Ezetimibe [Zetia] 10 mg PO DAILY 01/08/18 [History] Chlorthalidone 25 mg PO DAILY 01/29/18 [History] Fenofibrate Nanocrystallized [Triglide] 160 mg PO DAILY 01/29/18 [History] Levothyroxine [Synthroid] 37.5 mcg PO DAILY 01/29/18 [History] Ferrous Sulfate 325 mg PO DAILY@0800 #30 tablet 02/06/18 [Rx] Isosorbide DInitrate [Isordil] 10 mg PO TIDAC #90 tablet 02/06/18 [Rx] Carvedilol [Coreg] 25 mg PO BID 02/22/18 [History] Chlorthalidone [Chlorthalidone] 25 mg PO DAILY 02/22/18 [History] Furosemide [Lasix] 40 mg PO DAILY #14 tablet 02/22/18 [Rx] aMILoride [Midamor] 10 mg PO DAILY #30 tablet 02/22/18 [Rx] cloNIDine HCl [CloNIDine HCl] 0.1 mg PO BID 02/22/18 [History] Allergies/Adverse Reactions: 3 Allergy/AdvReac Type Severity Reaction Status Date / Time Penicillins Allergy Hives Verified 02/18/18 20:36 Date of admission: 02/19/18 08:03 Primary care physician: Jose A Hernandez Discharging clinician: Brian Carlos - Constitutional Vitals: Temp Pulse Resp BP Pulse Ox 98 F 88 17 124/60 93 02/22/18 11:35 02/22/18 11:35 02/22/18 11:35 02/22/18 11:35 02/22/18 08:32 - Head Head exam: Present: atraumatic, normocephalic - Eye Eye exam: Present: PERRL, conjuntiva pink, sclera anicteric Pupils: Present: PERRL - Neck Neck exam general surgery: Present: supple, trachea midline. Absent: lymphadenopathy - Respiratory Respiratory exam: Present: CTAB. Absent: accessory muscle use, rales, rhonchi, wheezes - Cardiovascular Cardiovascular exam: Present: RRR, +S1, +S2. Absent: diastolic murmur, gallop, rubs, systolic murmur - GI/Abdominal GI/Abdominal exam: Present: normal bowel sounds, soft, no peritoneal signs. Absent: distended, tenderness - Extremities Exam Extremities exam: Present: pedal edema, warm, radial pulses palpable and symmetrical. Absent: calf tenderness, cyanotic - Neurological Exam Neurological exam: Present: CN II-XII intact, oriented X3, no focal deficits. Absent: pronater drift, facial droop, speech deficit - Skin Skin exam: Present: dry, intact - Patient Status Disposition: Home, Self-Care Condition: Fair Functional capacity at discharge: independent ambulation Overall status at discharge: patient is progressing back to baseline - Discharge Instructions Follow Up With: Jose A Hernandez MD [Primary Care Provider] - - Diet and Activity Activity: increase activity as tolerated Diet: diabetic diet, low fat, low cholesterol, low salt diet - VTE Documentation of Mechanical Device: Graduated compression elastic hosiery
== END 2018-02-22 16:05 | disposition home or self-care (01) | DRG 291 ==
LOC: 2NENU 20:28 → EMEROO 20:28 → 2NENU 23:28
PROVIDERS: ADMIT Family Medicine; ATTEND Family Medicine

== ENCOUNTER 2019-03-22 02:45 | Observation (INO) ==
--- NOTE | 2019-03-22 02:52 | Emergency Department Note ---
Disposition Clinical Impression: CHF exacerbation Qualifiers: Heart failure type: unspecified Qualified Code(s): I50.9 - Heart failure, unspecified CHF (congestive heart failure), NYHA class III Qualifiers: Congestive heart failure chronicity: unspecified Disposition: Admitted As Inpatient Condition: Fair Referrals: NONE,PCP [Primary Care Provider] - Forms: ED Satisfaction Letter Time of Disposition: 07:25 SOB HPI - General Chief Complaint: ED Shortness of Breath/Dyspnea Stated Complaint: sob Time Seen by Provider: 03/22/19 02:51 Source: patient Mode of arrival: ambulatory Limitations: no limitations Nursing Notes Reviewed: Yes Vital Signs Reviewed: Yes - History of Present Illness Patient is a 59-year-old male presenting with dyspnea. Patient with known history of chronic kidney disease currently on dialysis with a Sunday regimen, COPD and CHF. Patient has been having increasing shortness of breath for the past 3-4 days worse this evening. Dyspnea is to be exacerbated by any type of exertion as well as lying flat. He does occasionally wear 2 L nasal cannula at home however this has not been helping him over the past few days. He has also had a slight dry cough no production. No fevers or chills. He has not noticed significant change in leg swelling. No nausea, vomiting or abdominal pain. No chest pain. No recent missed dialysis treatments. He currently takes 40 mg of Lasix at home, currently does make urine. Follows with nephrology, Dr. Bean. The history, physical exam, and medical decision making was performed by the medical student either while I was physically present and actively involved or I personally re-performed the exam and medical decision making. I have verified the accuracy of the medical student's documentation with regards to the history, physical exam findings, and medical decision making. - Related Data Home Medications Medication Instructions Recorded Confirmed Amlodipine Besylate 10 mg PO DAILY 03/29/16 02/18/18 Atorvastatin [Lipitor] 40 mg PO HS 03/29/16 02/18/18 Losartan Potassium [Cozaar] 100 mg PO DAILY 03/29/16 02/18/18 Potassium Chloride [Klor-Con 20 meq PO TID 03/29/16 02/18/18 Sprinkle] Aspirin [Lo-Dose Aspirin EC] 81 mg PO DAILY 05/26/17 02/18/18 BuPROPion XL (24 HR) [Wellbutrin 150 mg PO DAILY 05/26/17 02/18/18 Xl] Clopidogrel [Plavix] 75 mg PO DAILY 08/09/17 02/18/18 Tamsulosin HCl [Flomax] 0.4 mg PO DAILY 08/09/17 02/18/18 Acetaminophen [Tylenol Arthritis] 1,300 mg PO Q8H PRN 10/08/17 02/18/18 Cholecalciferol (D-3) [Vitamin D] 5,000 unit PO DAILY 10/08/17 02/18/18 Niacin [Niaspan] 1,000 mg PO DAILY 10/08/17 02/18/18 Subcutaneous Insulin Pump [T:Slim] 1 each MC AD 10/08/17 02/18/18 Ezetimibe [Zetia] 10 mg PO DAILY 01/08/18 02/18/18 Chlorthalidone 25 mg PO DAILY 01/29/18 02/18/18 Fenofibrate Nanocrystallized 160 mg PO DAILY 01/29/18 02/18/18 [Triglide] Levothyroxine [Synthroid] 37.5 mcg PO DAILY 01/29/18 02/18/18 Carvedilol [Coreg] 25 mg PO BID 02/22/18 02/22/18 Chlorthalidone 25 mg PO DAILY 02/22/18 02/22/18 cloNIDine HCl [CloNIDine HCl] 0.1 mg PO BID 02/22/18 02/22/18 Previous Rx's Medication Instructions Recorded Hydralazine HCl 50 mg PO TID #90 tablet 05/30/17 Ferrous Sulfate 325 mg PO DAILY@0800 #30 tablet 02/06/18 Isosorbide DInitrate [Isordil] 10 mg PO TIDAC #90 tablet 02/06/18 Furosemide [Lasix] 40 mg PO DAILY #14 tablet 02/22/18 aMILoride [Midamor] 10 mg PO DAILY #30 tablet 02/22/18 Allergies Allergy/AdvReac Type Severity Reaction Status Date / Time Penicillins Allergy Hives Verified 02/18/18 20:36 All systems ED: reviewed and negative except as stated. Review of Systems: As Per HPI Constitutional: Denies: fever, chills ENT ED: Denies: congestion Cardiovascular: Reports: dyspnea on exertion. Denies: chest pain, palpitations, syncope Respiratory: Reports: cough, dyspnea. Denies: wheezes, hemoptysis, stridor, sputum production Gastrointestinal: Denies: abdominal pain, nausea, vomiting Genitourinary: Denies: urgency Musculoskeletal: Denies: back pain Integumentary: Denies: rash Neurological: Denies: headache, weakness, numbness, confusion Endocrine: Reports: fatigue Past Medical History - Past Medical History Medical history: Reports: arthritis, CHF, coronary artery disease, CVA, diabetes, hyperlipidemia, hypertension, myocardial infarction, renal disease Surgical history: Reports: cataract Psychiatric history: Reports: no psych history - Social History Smoking Status: Former smoker Smokeless Tobacco Status: No Alcohol use: Reports: occasionally Drug use: Reports: none Physical Exam General: Conversant. No significant conversational dyspnea, patient currently on 4 L nasal cannula. Neck: No JVD. Trachea midline. Neck supple. Eyes: PERRL. No scleral icterus. HENT: Normocephalic and atraumatic. Moist mucus membranes. Cardiovascular: Regular rate and rhythm. Normal S1 and S2. No murmurs appreciated. Normal capillary refill. Extremities well perfused with 2+ distal pulses bilaterally. No edema. Pulmonary: Patient with crackles in bilateral bases, no wheezing. Abdomen: Soft, nondistended, without tenderness. No bruits or masses. No guarding or rebound. Neuro: Alert and oriented x3. No slurred speech. No focal deficits noted. Skin: No rashes noted on visualized skin. Musculoskeletal: No bony abnormalities visualized. Moves all extremities. Psych: Normal mood. Pleasant. Makes appropriate eye contact. Course Vital Signs Temperature 97.6 F 03/22/19 02:45 Pulse Rate 87 03/22/19 02:45 Respiratory Rate 24 03/22/19 02:45 Blood Pressure 228/95 03/22/19 02:45 O2 Sat by Pulse Oximetry 85 03/22/19 02:45 Temperature 97.6 F 03/22/19 03:20 Pulse Rate 87 03/22/19 06:10 Respiratory Rate 18 03/22/19 06:10 Blood Pressure 191/90 03/22/19 06:10 O2 Sat by Pulse Oximetry 93 03/22/19 06:10 Oxygen Delivery Oxygen Delivery Nasal Cannula Shortness of Breath/Dyspnea - MDM Narrative Medical decision making narrative: Patient is a 59-year-old male presenting with dyspnea. Patient with known history of chronic kidney disease currently on dialysis, COPD, CHF, diabetes mellitus type 2. On arrival, patient on initial triage was satting at 84-86% on room air, patient was started on 4 L nasal cannula with an oxygen saturation of 96%. Patient does have crackles at the bases without significant wheezing. Patient was given 40 mg IV of Lasix. Chest x-ray does show the patient have volume overload. Patient has 2+ pitting edema to the bilateral lower extremities. CBC shows no leukocytosis. BMP does show significant increased serum creat inine, slightly increased from last serum creatinine checked in September 2018, electrolytes are within normal limits. Troponin is elevated 0.05, this appears to be patient's baseline, EKG shows no acute ischemic changes. BNP is elevated at 1311. This is significantly more elevated than has been in the past since 2018. Patient has been maintaining oxygen saturation with 4 L nasal cannula from 96-9 8%. Patient otherwise does not appear overly dyspneic, do not feel as though patient requires further BiPAP treatment. Given patient's overall clinical picture appears the patient is fluid overloade d, do believe the patient would do best with admission for further dialysis treatment, the patient was given Lasix 40 mg IV, he does make urine. Patient will be admitted for further evaluation and treatment. - Medical Records Medical records reviewed: Yes I reviewed the patient's medical records. - Lab Data Lab results reviewed: Yes I reviewed the patient's lab results. Result diagrams: 03/22/19 03:47 03/22/19 03:47 Lab Results 03/22/19 03/22/19 03/22/19 Range/Units 03:47 03:47 03:47 WBC 7.2 (4.3-11.1) K/mcL RBC 3.27 L (4.19-5.50) M/mcL Hgb 9.3 L (12.9-16.9) g/dL Hct 28.4 L (37.5-50.1) % MCV 86.9 (83.0-100.0) fL MCH 28.4 (28.0-33.3) pg MCHC 32.7 (31.6-35.5) g/dL RDW 14.5 (11.5-14.5) % Plt Count 179 (140-400) K/mcL MPV 10.5 (9.4-12.4) fL Immature Gran % 0.6 (0-4) % Seg Neutrophils % 80.6 % Lymphocytes % 10.0 % Monocytes % 6.7 % Eosinophils % 1.5 % Basophils % 0.6 % Neutrophils # 5.8 (1.6-8.9) K/mcL Lymphocytes # 0.7 (0.6-4.6) K/mcL Monocytes # 0.5 (0.0-1.3) K/mcL Eosinophils # 0.1 (0.0-0.6) K/mcL Basophils # 0.0 (0.0-0.2) K/mcL PT 11.4 (9.4-12.1) Seconds INR 1.0 APTT 33.5 (26.0-36.0) Seconds Sodium 137 (136-145) mEq/L Potassium 3.8 (3.5-5.1) mEq/L Chloride 98 (98-107) mEq/L Carbon Dioxide 24 (23-29) mEq/L BUN 37 H (6-20) mg/dL Creatinine 4.79 H (0.70-1.30) mg/dL Est GFR ( Amer) 15 L (> 60) Est GFR (Non-Af Amer) 13 L (> 60) BUN/Creatinine Ratio 8 (6-26) Glucose 364 H (70-105) mg/dL Calculated Osmolality 307 H (280-300) Lactic Acid (0.5-2.2) mmol/L Calcium 9.0 (8.6-10.3) mg/dL Troponin I 0.05 H* (< 0.04) ng/mL B-Natriuretic Peptide (Less than 100) pg/mL 03/22/19 03/22/19 Range/Units 03:47 03:47 WBC (4.3-11.1) K/mcL RBC (4.19-5.50) M/mcL Hgb (12.9-16.9) g/dL Hct (37.5-50.1) % MCV (83.0-100.0) fL MCH (28.0-33.3) pg MCHC (31.6-35.5) g/dL RDW (11.5-14.5) % Plt Count (140-400) K/mcL MPV (9.4-12.4) fL Immature Gran % (0-4) % Seg Neutrophils % % Lymphocytes % % Monocytes % % Eosinophils % % Basophils % % Neutrophils # (1.6-8.9) K/mcL Lymphocytes # (0.6-4.6) K/mcL Monocytes # (0.0-1.3) K/mcL Eosinophils # (0.0-0.6) K/mcL Basophils # (0.0-0.2) K/mcL PT (9.4-12.1) Seconds INR APTT (26.0-36.0) Seconds Sodium (136-145) mEq/L Potassium (3.5-5.1) mEq/L Chloride (98-107) mEq/L Carbon Dioxide (23-29) mEq/L BUN (6-20) mg/dL Creatinine (0.70-1.30) mg/dL Est GFR ( Amer) (> 60) Est GFR (Non-Af Amer) (> 60) BUN/Creatinine Ratio (6-26) Glucose (70-105) mg/dL Calculated Osmolality (280-300) Lactic Acid 0.4 L (0.5-2.2) mmol/L Calcium (8.6-10.3) mg/dL Troponin I (< 0.04) ng/mL B-Natriuretic Peptide 1311 H (Less than 100) pg/mL - Radiology Data Radiology results reviewed: Yes I reviewed the patient's radiology results. Chest X-Ray 03/22/19 02:55 IMPRESSION: Findings of volume overload. Dual-lumen catheter in good position. D/ / Brian Ceballos / Brian Ceballos Interpreting Provider: Brian Ceballos - EKG Data EKG attestation: Yes I reviewed and interpreted this EKG. EKG results narrative: EKG performed at 0 319 with ventricular rate of 74, regular rhythm, left axis deviation with multiple PVCs noted, there is less than [address] elevation in lead 3 as well as aVF, T-wave flattening in the lateral leads, when compared to old EKG performed on 02/18/2018, elevations in lead 3 and aVF are unchanged T flattening in lateral leads are also unchanged. S.B.AMatthew - S.B.A.RCarrol Situation: Demographics, MOA Background: Presenting Complaint, Relevant PMH, Meds, & Allergies Assessment: Vital Signs, Course and respsone to treatment, Exam Concerns, Patient/Family Expectation, Pertinant Lab Results, Outstanding Labs Recommendation: Barrier(s) to disposition, Recommendation based on pending studies, treatments, or consults Hector Report Given to: Dr. Ender Young Repor Time: 07:00
[2019-03-22 04:04] LABS: Basophils % 0.6 %; Eosinophils # 0.1 K/mcL (0.0-0.6); Eosinophils % 1.5 %; Hematocrit 28.4 % (37.5-50.1); Hemoglobin 9.3 g/dL (12.9-16.9); Immature Granulocytes % 0.6 % (0-4); Lymphocytes # 0.7 K/mcL (0.6-4.6); Mean Corpuscular HGB Conc 32.7 g/dL (31.6-35.5); Mean Corpuscular Hemoglobin 28.4 pg (28.0-33.3); Mean Corpuscular Volume 86.9 fL (83.0-100.0); Mean Platelet Volume 10.5 fL (9.4-12.4); Monocytes # 0.5 K/mcL (0.0-1.3); Monocytes % 6.7 %; Neutrophils # 5.8 K/mcL (1.6-8.9); Platelet Count 179 K/mcL (140-400); Red Blood Count 3.27 M/mcL (4.19-5.50); Red Cell Distribution Width 14.5 % (11.5-14.5); Segmented Neutrophils % 80.6 %; White Blood Count 7.2 K/mcL (4.3-11.1)
[2019-03-22 04:15] LABS: Prothrombin Time 11.4 Seconds (9.4-12.1)
[2019-03-22] MEDS ORDERED: Furosemide 40 MG/4 ML VIAL IVP ONE (04:16)
[2019-03-22 04:18] LABS: Activated Partial Thrombo Time 33.5 Seconds (26.0-36.0)
--- NOTE | 2019-03-22 04:20 | Emergency Department Note ---
Disposition Clinical Impression: CHF exacerbation Qualifiers: Heart failure type: unspecified Qualified Code(s): I50.9 - Heart failure, unspecified CHF (congestive heart failure), NYHA class III Qualifiers: Congestive heart failure chronicity: unspecified Disposition: Admitted As Inpatient Condition: Fair Referrals: NONE,PCP [Primary Care Provider] - Forms: ED Satisfaction Letter Time of Disposition: 07:25 General Adult HPI - General Chief complaint: ED Shortness of Breath/Dyspnea Stated complaint: sob Time Seen by Provider: 03/22/19 02:51 Source: patient Limitations: no limitations Nursing Notes Reviewed: Yes Vital Signs Reviewed: Yes - History of Present Illness Pain Scale: 0 - Related Data Home Medications Medication Instructions Recorded Confirmed Amlodipine Besylate 10 mg PO DAILY 03/29/16 02/18/18 Atorvastatin [Lipitor] 40 mg PO HS 03/29/16 02/18/18 Losartan Potassium [Cozaar] 100 mg PO DAILY 03/29/16 02/18/18 Potassium Chloride [Klor-Con 20 meq PO TID 03/29/16 02/18/18 Sprinkle] Aspirin [Lo-Dose Aspirin EC] 81 mg PO DAILY 05/26/17 02/18/18 BuPROPion XL (24 HR) [Wellbutrin 150 mg PO DAILY 05/26/17 02/18/18 Xl] Clopidogrel [Plavix] 75 mg PO DAILY 08/09/17 02/18/18 Tamsulosin HCl [Flomax] 0.4 mg PO DAILY 08/09/17 02/18/18 Acetaminophen [Tylenol Arthritis] 1,300 mg PO Q8H PRN 10/08/17 02/18/18 Cholecalciferol (D-3) [Vitamin D] 5,000 unit PO DAILY 10/08/17 02/18/18 Niacin [Niaspan] 1,000 mg PO DAILY 10/08/17 02/18/18 Subcutaneous Insulin Pump [T:Slim] 1 each MC AD 10/08/17 02/18/18 Ezetimibe [Zetia] 10 mg PO DAILY 01/08/18 02/18/18 Chlorthalidone 25 mg PO DAILY 01/29/18 02/18/18 Fenofibrate Nanocrystallized 160 mg PO DAILY 01/29/18 02/18/18 [Triglide] Levothyroxine [Synthroid] 37.5 mcg PO DAILY 01/29/18 02/18/18 Carvedilol [Coreg] 25 mg PO BID 02/22/18 02/22/18 Chlorthalidone 25 mg PO DAILY 02/22/18 02/22/18 cloNIDine HCl [CloNIDine HCl] 0.1 mg PO BID 02/22/18 02/22/18 Previous Rx's Medication Instructions Recorded Hydralazine HCl 50 mg PO TID #90 tablet 05/30/17 Ferrous Sulfate 325 mg PO DAILY@0800 #30 tablet 02/06/18 Isosorbide DInitrate [Isordil] 10 mg PO TIDAC #90 tablet 02/06/18 Furosemide [Lasix] 40 mg PO DAILY #14 tablet 02/22/18 aMILoride [Midamor] 10 mg PO DAILY #30 tablet 02/22/18 Allergies Allergy/AdvReac Type Severity Reaction Status Date / Time Penicillins Allergy Hives Verified 02/18/18 20:36 Past Medical History - Past Medical History Medical history: Reports: arthritis, CHF, coronary artery disease, CVA, diabetes, hyperlipidemia, hypertension, myocardial infarction, renal disease Surgical history: Reports: cataract Psychiatric history: Reports: no psych history - Social History Smoking Status: Former smoker Smokeless Tobacco Status: No Alcohol use: Reports: none Drug use: Reports: none Physical Exam - General Limitations: no limitations Course Vital Signs Temperature 97.6 F 03/22/19 02:45 Pulse Rate 87 03/22/19 02:45 Respiratory Rate 24 03/22/19 02:45 Blood Pressure 228/95 03/22/19 02:45 O2 Sat by Pulse Oximetry 85 03/22/19 02:45 Temperature 97.6 F 03/22/19 03:20 Pulse Rate 87 03/22/19 06:10 Respiratory Rate 18 03/22/19 06:10 Blood Pressure 191/90 03/22/19 06:10 O2 Sat by Pulse Oximetry 93 03/22/19 06:10 Oxygen Delivery Oxygen Delivery Nasal Cannula Medical Decision Making - Medical Records Medical records reviewed: Yes I reviewed the patient's medical records. - Lab Data Lab results reviewed: Yes I reviewed the patient's lab results. Result diagrams: 03/22/19 03:47 03/22/19 03:47 Lab Results 03/22/19 03/22/19 03/22/19 Range/Units 03:47 03:47 03:47 WBC 7.2 (4.3-11.1) K/mcL RBC 3.27 L (4.19-5.50) M/mcL Hgb 9.3 L (12.9-16.9) g/dL Hct 28.4 L (37.5-50.1) % MCV 86.9 (83.0-100.0) fL MCH 28.4 (28.0-33.3) pg MCHC 32.7 (31.6-35.5) g/dL RDW 14.5 (11.5-14.5) % Plt Count 179 (140-400) K/mcL MPV 10.5 (9.4-12.4) fL Immature Gran % 0.6 (0-4) % Seg Neutrophils % 80.6 % Lymphocytes % 10.0 % Monocytes % 6.7 % Eosinophils % 1.5 % Basophils % 0.6 % Neutrophils # 5.8 (1.6-8.9) K/mcL Lymphocytes # 0.7 (0.6-4.6) K/mcL Monocytes # 0.5 (0.0-1.3) K/mcL Eosinophils # 0.1 (0.0-0.6) K/mcL Basophils # 0.0 (0.0-0.2) K/mcL PT 11.4 (9.4-12.1) Seconds INR 1.0 APTT 33.5 (26.0-36.0) Seconds Sodium 137 (136-145) mEq/L Potassium 3.8 (3.5-5.1) mEq/L Chloride 98 (98-107) mEq/L Carbon Dioxide 24 (23-29) mEq/L BUN 37 H (6-20) mg/dL Creatinine 4.79 H (0.70-1.30) mg/dL Est GFR ( Amer) 15 L (> 60) Est GFR (Non-Af Amer) 13 L (> 60) BUN/Creatinine Ratio 8 (6-26) Glucose 364 H (70-105) mg/dL Calculated Osmolality 307 H (280-300) Lactic Acid (0.5-2.2) mmol/L Calcium 9.0 (8.6-10.3) mg/dL Troponin I 0.05 H* (< 0.04) ng/mL B-Natriuretic Peptide (Less than 100) pg/mL 03/22/19 03/22/19 Range/Units 03:47 03:47 WBC (4.3-11.1) K/mcL RBC (4.19-5.50) M/mcL Hgb (12.9-16.9) g/dL Hct (37.5-50.1) % MCV (83.0-100.0) fL MCH (28.0-33.3) pg MCHC (31.6-35.5) g/dL RDW (11.5-14.5) % Plt Count (140-400) K/mcL MPV (9.4-12.4) fL Immature Gran % (0-4) % Seg Neutrophils % % Lymphocytes % % Monocytes % % Eosinophils % % Basophils % % Neutrophils # (1.6-8.9) K/mcL Lymphocytes # (0.6-4.6) K/mcL Monocytes # (0.0-1.3) K/mcL Eosinophils # (0.0-0.6) K/mcL Basophils # (0.0-0.2) K/mcL PT (9.4-12.1) Seconds INR APTT (26.0-36.0) Seconds Sodium (136-145) mEq/L Potassium (3.5-5.1) mEq/L Chloride (98-107) mEq/L Carbon Dioxide (23-29) mEq/L BUN (6-20) mg/dL Creatinine (0.70-1.30) mg/dL Est GFR ( Amer) (> 60) Est GFR (Non-Af Amer) (> 60) BUN/Creatinine Ratio (6-26) Glucose (70-105) mg/dL Calculated Osmolality (280-300) Lactic Acid 0.4 L (0.5-2.2) mmol/L Calcium (8.6-10.3) mg/dL Troponin I (< 0.04) ng/mL B-Natriuretic Peptide 1311 H (Less than 100) pg/mL - Radiology Data Radiology results reviewed: Yes I reviewed the patient's radiology results. Chest X-Ray 03/22/19 02:55 IMPRESSION: Findings of volume overload. Dual-lumen catheter in good position. D/ / Brian Ceballos / Brian Ceballos Interpreting Provider: Brian Ceballos - EKG Data EKG #1 EKG attestation: Yes I reviewed and interpreted this EKG. EKG results narrative: EKG shows a normal sinus rhythm with ventricular rate of 74. Multiple PVCs. No significant ST segment elevation or depression. Nonspecific T-wave abnormality. Critical Care Time Critical Care Time: Yes Total Critical Care Time: 40 Attestation: Critical care performed: Time is exclusive of separately billable procedures. Time includes: direct patient care, patient reassessment, coordination of patient care, interpretation of data (laboratory data, radiology data, and respiratory data), review of patient's medical records, medical consultation and documentation of patient care. Procedures included in critical care time: Procedures excluded from critical care time: Attestation Statement - Attestation Attestation: I, Nader Randall MD, personally evaluated this patient and discussed their management with the resident physician. I reviewed the resident's note and agree with the documented findings, medical decision making, and plan of care. I reviewed the residents documentation and agree with the residents assessment and plan of care. I have personally had face to face time with the patient. I personally supervised and was present for the sabillon/critical portions of the following procedures completed by the resident: EKG interpretation. 59-year-old male who is on hemodialysis presents to the emergency department with a complaint of increasing shortness of breath over the past 2 days. Shortness of breath is worse with lying down and improved with sitting up or standing. He denies any cough or fever. No chest pain. He has not really noticed any increased swelling. He has dialysis on Sunday, , and Sunday. He did have his dialysis and has not missed any. History of CHF as well as COPD. He is on home oxygen at 2 L. On examination patient is a well-developed morbidly obese male in no acute distress. He is alert and oriented 3. There is no cyanosis or diaphoresis. Breath sounds are equal bilaterally with moist bibasilar rales. No wheezes noted. Heart regular rate and rhythm with frequent ectopy. Abdomen soft and nontender with normal bowel sounds. 2+ pitting edema of the lower extremities bilaterally. EKG shows a normal sinus rhythm with ventricular rate of 74. Multiple PVCs. No significant ST segment elevation or depression. Nonspecific T-wave abnormality. Chest x-ray consistent with fluid overload. Labs reviewed. Troponin 0.05 which is patient's baseline. BNP 1311. Patient received Lasix 40 mg IV. The hospitalist, Dr. Handley, was consulted and accepted admission of the patient.
[2019-03-22 04:26] LABS: Potassium 3.8 mEq/L (3.5-5.1)
--- NOTE | 2019-03-22 04:26 | Emergency Department Note ---
Disposition Clinical Impression: CHF (congestive heart failure), NYHA class III CHF exacerbation Qualifiers: Heart failure type: unspecified Qualified Code(s): I50.9 - Heart failure, unspecified Disposition: Admitted As Inpatient Condition: Fair Referrals: NONE,PCP [Primary Care Provider] - Forms: ED Satisfaction Letter Time of Disposition: 06:15 General Adult HPI - General Chief complaint: ED Shortness of Breath/Dyspnea Stated complaint: sob Time Seen by Provider: 03/22/19 02:51 Source: patient Limitations: no limitations - History of Present Illness HPI Narrative: Mr. Frederick is a 59 year old male with past medical history of CHF, CAD, COPD, HTN, CKD stage 3, and diabetes that presents to the emergency department with in creased shortness of breath over the past couple of days. His dyspnea is exertional and worse when lying flat. He intermittently uses 2 L of oxygen at home but has not been helping the past couple of days. He also complains of a headache but is not different than his past headaches. He is on dialysis and has not missed any of his appointments. He denies chest pain, increased lower extremity swelling, productive cough, cold symptoms, lightheadness, dizziness, nausea, vomiting, diarrhea. He states he has been out of his insulin for the past couple of weeks due to not being able to afford it. His most recent home sugar was this morning and read 280. He also states he has not had his inhaler for COPD for the past month. Pain Scale: 0 - Related Data Home Medications Medication Instructions Recorded Confirmed Amlodipine Besylate 10 mg PO DAILY 03/29/16 02/18/18 Atorvastatin [Lipitor] 40 mg PO HS 03/29/16 02/18/18 Losartan Potassium [Cozaar] 100 mg PO DAILY 03/29/16 02/18/18 Potassium Chloride [Klor-Con 20 meq PO TID 03/29/16 02/18/18 Sprinkle] Aspirin [Lo-Dose Aspirin EC] 81 mg PO DAILY 05/26/17 02/18/18 BuPROPion XL (24 HR) [Wellbutrin 150 mg PO DAILY 05/26/17 02/18/18 Xl] Clopidogrel [Plavix] 75 mg PO DAILY 08/09/17 02/18/18 Tamsulosin HCl [Flomax] 0.4 mg PO DAILY 08/09/17 02/18/18 Acetaminophen [Tylenol Arthritis] 1,300 mg PO Q8H PRN 10/08/17 02/18/18 Cholecalciferol (D-3) [Vitamin D] 5,000 unit PO DAILY 10/08/17 02/18/18 Niacin [Niaspan] 1,000 mg PO DAILY 10/08/17 02/18/18 Subcutaneous Insulin Pump [T:Slim] 1 each MC AD 10/08/17 02/18/18 Ezetimibe [Zetia] 10 mg PO DAILY 01/08/18 02/18/18 Chlorthalidone 25 mg PO DAILY 01/29/18 02/18/18 Fenofibrate Nanocrystallized 160 mg PO DAILY 01/29/18 02/18/18 [Triglide] Levothyroxine [Synthroid] 37.5 mcg PO DAILY 01/29/18 02/18/18 Carvedilol [Coreg] 25 mg PO BID 02/22/18 02/22/18 Chlorthalidone 25 mg PO DAILY 02/22/18 02/22/18 cloNIDine HCl [CloNIDine HCl] 0.1 mg PO BID 02/22/18 02/22/18 Previous Rx's Medication Instructions Recorded Hydralazine HCl 50 mg PO TID #90 tablet 05/30/17 Ferrous Sulfate 325 mg PO DAILY@0800 #30 tablet 02/06/18 Isosorbide DInitrate [Isordil] 10 mg PO TIDAC #90 tablet 02/06/18 Furosemide [Lasix] 40 mg PO DAILY #14 tablet 02/22/18 aMILoride [Midamor] 10 mg PO DAILY #30 tablet 02/22/18 Allergies Allergy/AdvReac Type Severity Reaction Status Date / Time Penicillins Allergy Hives Verified 02/18/18 20:36 Constitutional: Denies: fever, chills Cardiovascular: Denies: chest pain, palpitations Respiratory: Denies: cough, sputum production Gastrointestinal: Denies: abdominal pain, nausea, vomiting, diarrhea Neurological: Reports: headache Past Medical History - Past Medical History Medical history: Reports: arthritis, CHF, coronary artery disease, CVA, diabetes, hyperlipidemia, hypertension, myocardial infarction, renal disease Surgical history: Reports: cataract Psychiatric history: Reports: no psych history - Social History Smoking Status: Former smoker Smokeless Tobacco Status: No Alcohol use: Reports: none Drug use: Reports: none Physical Exam - General Limitations: no limitations General appearance: alert, in no apparent distress (No conversational dyspnea ) - Head Head exam: atraumatic, normocephalic - Eye Eye exam: Present: normal appearance, EOMI - Respiratory Respiratory exam: Present: other (mild crackles bilaterally. no wheezes or rhonchi) - Cardiovascular Cardiovascular exam: Present: regular rate, normal rhythm - Abdominal Exam Abdominal exam: Present: soft, Non-Tender, normal bowel sounds. Absent: tenderness, distention - Extremities Exam Extremities exam: Present: normal inspection, full ROM, normal capillary refill - Expanded Lower Extremity Exam Lower leg exam: Present: other (2 + pitting edema bilaterally ) - Neurological Exam Neurological exam: Present: alert, oriented X3, CN II-XII intact Course Vital Signs Temperature 97.6 F 03/22/19 02:45 Pulse Rate 87 03/22/19 02:45 Respiratory Rate 24 03/22/19 02:45 Blood Pressure 228/95 03/22/19 02:45 O2 Sat by Pulse Oximetry 85 03/22/19 02:45 Temperature 97.6 F 03/22/19 03:20 Pulse Rate 82 03/22/19 05:02 Respiratory Rate 20 03/22/19 05:02 Blood Pressure 190/98 03/22/19 05:02 O2 Sat by Pulse Oximetry 94 03/22/19 05:02 Oxygen Delivery Oxygen Delivery Nasal Cannula Medical Decision Making - Lab Data Result diagrams: 03/22/19 03:47 03/22/19 03:47 Lab Results 03/22/19 03/22/19 03/22/19 Range/Units 03:47 03:47 03:47 WBC 7.2 (4.3-11.1) K/mcL RBC 3.27 L (4.19-5.50) M/mcL Hgb 9.3 L (12.9-16.9) g/dL Hct 28.4 L (37.5-50.1) % MCV 86.9 (83.0-100.0) fL MCH 28.4 (28.0-33.3) pg MCHC 32.7 (31.6-35.5) g/dL RDW 14.5 (11.5-14.5) % Plt Count 179 (140-400) K/mcL MPV 10.5 (9.4-12.4) fL Immature Gran % 0.6 (0-4) % Seg Neutrophils % 80.6 % Lymphocytes % 10.0 % Monocytes % 6.7 % Eosinophils % 1.5 % Basophils % 0.6 % Neutrophils # 5.8 (1.6-8.9) K/mcL Lymphocytes # 0.7 (0.6-4.6) K/mcL Monocytes # 0.5 (0.0-1.3) K/mcL Eosinophils # 0.1 (0.0-0.6) K/mcL Basophils # 0.0 (0.0-0.2) K/mcL PT 11.4 (9.4-12.1) Seconds INR 1.0 APTT 33.5 (26.0-36.0) Seconds Sodium 137 (136-145) mEq/L Potassium 3.8 (3.5-5.1) mEq/L Chloride 98 (98-107) mEq/L Carbon Dioxide 24 (23-29) mEq/L BUN 37 H (6-20) mg/dL Creatinine 4.79 H (0.70-1.30) mg/dL Est GFR ( Amer) 15 L (> 60) Est GFR (Non-Af Amer) 13 L (> 60) BUN/Creatinine Ratio 8 (6-26) Glucose 364 H (70-105) mg/dL Calculated Osmolality 307 H (280-300) Lactic Acid (0.5-2.2) mmol/L Calcium 9.0 (8.6-10.3) mg/dL Troponin I 0.05 H* (< 0.04) ng/mL B-Natriuretic Peptide (Less than 100) pg/mL 03/22/19 03/22/19 Range/Units 03:47 03:47 WBC (4.3-11.1) K/mcL RBC (4.19-5.50) M/mcL Hgb (12.9-16.9) g/dL Hct (37.5-50.1) % MCV (83.0-100.0) fL MCH (28.0-33.3) pg MCHC (31.6-35.5) g/dL RDW (11.5-14.5) % Plt Count (140-400) K/mcL MPV (9.4-12.4) fL Immature Gran % (0-4) % Seg Neutrophils % % Lymphocytes % % Monocytes % % Eosinophils % % Basophils % % Neutrophils # (1.6-8.9) K/mcL Lymphocytes # (0.6-4.6) K/mcL Monocytes # (0.0-1.3) K/mcL Eosinophils # (0.0-0.6) K/mcL Basophils # (0.0-0.2) K/mcL PT (9.4-12.1) Seconds INR APTT (26.0-36.0) Seconds Sodium (136-145) mEq/L Potassium (3.5-5.1) mEq/L Chloride (98-107) mEq/L Carbon Dioxide (23-29) mEq/L BUN (6-20) mg/dL Creatinine (0.70-1.30) mg/dL Est GFR ( Amer) (> 60) Est GFR (Non-Af Amer) (> 60) BUN/Creatinine Ratio (6-26) Glucose (70-105) mg/dL Calculated Osmolality (280-300) Lactic Acid 0.4 L (0.5-2.2) mmol/L Calcium (8.6-10.3) mg/dL Troponin I (< 0.04) ng/mL B-Natriuretic Peptide 1311 H (Less than 100) pg/mL
[2019-03-22 04:38] LABS: Troponin I 0.05 ng/mL (< 0.04)
[2019-03-22] MEDS ORDERED: Ondansetron 4 MG/2 ML VIAL IVP PRN (07:20)
[2019-03-22] MEDS ORDERED: Acetaminophen 325 MG TABLET PO PRN (07:20)
[2019-03-22] MEDS ORDERED: Subcutaneous Insulin Pump [T:Slim] SQ SCH (07:30)
--- NOTE | 2019-03-22 07:36 | Internal Med History&Physical ---
Date of Encounter: 03/22/19 Time of Encounter: 07:26 Internal Medicine - H&P: HPI Chief complaint: SOB Admitted From: Emergency Dept History of present illness: Arpit Frederick is a 59 M w hx ESRD on HD TThS, HFpEF, CAD, COPD on 2L, HTN, DM2, morbid obesity, who p/w SOB. Symptoms progressively worsening over last 2-3 days, worse when lying flat or with any exertion. Says his legs are swollen but about the same as usual. Is compliant with HD and was dialyzed on . Also still makes urine for which he takes lasix and chlorthalidone. No fevers, no dizziness or lightheadedness, no CP, no cough, no change in sputum production. He follows with [facility] Art. In the ED, pt vitals remarkable for RR 24, BP ~200s/90s. BNP to 1000s. CXR showing pulm vasc congestion and edema. Given Lasix IV, blood cultures checked, and pt admitted. Past medical, surgical, social, and family histories reviewed and updated as below. Past Med Surg Social Fam HX - Past Medical History Medical history: arthritis, CHF, coronary artery disease, CVA, diabetes, hyperlipidemia, hypertension, myocardial infarction, renal disease Additional medical history: color blind. stage III renal failure. fistula LFA, perma cath right chest Psychiatric history: no psych history - Past Surgical History Surgical History: cataract - Social History Smoking Status: Former smoker Smokeless Tobacco Status: No Alcohol use: none Drug use: none - Family History Brother Adopted: No Family Member Ethnicity: Non- Living Status: Hx Family Cardiac Disorders: Yes (CABG, valve replacement) Hx Family Respiratory Disorders: No Hx Family Cancer: Yes (Hodgkins dz) Hx Family GI Disorders: No Hx Family Endocrine Disorder: No Hx Family Neuromuscular Disorders: No Hx Family Neurologic Disorders: No Hx Family HEENT Disorders: Yes (blind in one eye) Hx Family Autoimmune Disorders: No Internal Medicine - H&P: Meds Amlodipine Besylate 10 mg PO DAILY 03/29/16 [History] Atorvastatin [Lipitor] 40 mg PO HS 03/29/16 [History] Losartan Potassium [Cozaar] 100 mg PO DAILY 03/29/16 [History] Potassium Chloride [Klor-Con Sprinkle] 20 meq PO TID 09/07/16 [History] Aspirin [Lo-Dose Aspirin EC] 81 mg PO DAILY 05/26/17 [History] BuPROPion XL (24 HR) [Wellbutrin Xl] 150 mg PO DAILY 05/26/17 [History] Hydralazine HCl 50 mg PO TID #90 tablet 05/30/17 [Rx] Clopidogrel [Plavix] 75 mg PO DAILY 08/09/17 [History] Tamsulosin HCl [Flomax] 0.4 mg PO DAILY 08/09/17 [History] Acetaminophen [Tylenol Arthritis] 1,300 mg PO Q8H PRN 10/08/17 [History] Cholecalciferol (D-3) [Vitamin D] 5,000 unit PO DAILY 10/08/17 [History] Niacin [Niaspan] 1,000 mg PO DAILY 10/08/17 [History] Subcutaneous Insulin Pump [T:Slim] 1 each MC AD 10/08/17 [History] Ezetimibe [Zetia] 10 mg PO DAILY 01/08/18 [History] Chlorthalidone 25 mg PO DAILY 01/29/18 [History] Fenofibrate Nanocrystallized [Triglide] 160 mg PO DAILY 01/29/18 [History] Levothyroxine [Synthroid] 37.5 mcg PO DAILY 01/29/18 [History] Ferrous Sulfate 325 mg PO DAILY@0800 #30 tablet 02/06/18 [Rx] Isosorbide DInitrate [Isordil] 10 mg PO TIDAC #90 tablet 02/06/18 [Rx] Carvedilol [Coreg] 25 mg PO BID 02/22/18 [History] Chlorthalidone 25 mg PO DAILY 02/22/18 [History] Furosemide [Lasix] 40 mg PO DAILY #14 tablet 02/22/18 [Rx] aMILoride [Midamor] 10 mg PO DAILY #30 tablet 02/22/18 [Rx] cloNIDine HCl [CloNIDine HCl] 0.1 mg PO BID 02/22/18 [History] Allergy/AdvReac Type Severity Reaction Status Date / Time Penicillins Allergy Hives Verified 02/18/18 20:36 All Systems PM: A 10-system review of systems was performed and is negative for pertinent findings except as documented above in the HPI. - Constitutional Vitals: Temp Pulse Resp BP Pulse Ox 97.6 F 87 18 191/90 93 03/22/19 03:20 03/22/19 06:10 03/22/19 06:10 03/22/19 06:10 03/22/19 06:10 Exam: General: NAD, good eye contact, relatively well appearing, obese Head: Atraumatic, normocephalic. Face symmetric Eyes: EOMI, sclerae anicteric ENT: Mucous membranes moist. Normal oral mucosa. Trachea midline. Thoracic: No visible chest wall deformities. Does have bibasilar crackles to lower 1/3 lung yepez Cardio: Normal S1 and S2, regular rate and rhythm Abdomen: Soft, nontender, nondistended, obese Extremities: Warm, well perfused. DP pulses palpable. No clubbing, cyanosis. Does have edema b/l legs and some dependent thigh edema, none in body wall Skin: Intact. No rashes, bruises, or ulcers. Has LUE AVF Neuro: Awake, fully oriented. Good memory, concentration, attention. Speech fluent. CN II-XII grossly intact. Strength 5/5 in b/l UE and LE Internal Med - H&P Results - Labs CBC & Chem 7: 03/22/19 03:47 03/22/19 03:47 Labs: Short CBC 03/22/19 Range/Units 03:47 WBC 7.2 (4.3-11.1) K/mcL Hgb 9.3 L (12.9-16.9) g/dL Hct 28.4 L (37.5-50.1) % Plt Count 179 (140-400) K/mcL Neutrophils # 5.8 (1.6-8.9) K/mcL BMP 03/22/19 03:47 Sodium 137 Potassium 3.8 Chloride 98 Carbon Dioxide 24 BUN 37 H Creatinine 4.79 H Glucose 364 H Calcium 9.0 Cardiac Enzymes 03/22/19 Range/Units 03:47 Troponin I 0.05 H* (< 0.04) ng/mL - Impressions ITS Impressions Chest X-Ray 03/22/19 02:55 IMPRESSION: Findings of volume overload. Dual-lumen catheter in good position. D/ / Brian Ceballos / Brian Ceballos Interpreting Provider: Brian Ceballos - Summary of Assessment and Plan Summary of Assessment and Plan: Arpit Frederick is a 59 M w hx ESRD on HD TThS, HFpEF, CAD, COPD on 2L, HTN, DM2, morbid obesity, who p/w SOB, hypoxia, elevated BNP, CXR w pulm vasc congestion, concerning for acute pulmonary edema needing HD. Acute on chronic HFpEF: c/b acute pulmonary edema and volume overload - Neph consult for HD HTN emergency: extensive home meds- amlodipine 10, coreg 25 bid, losartan 100, chlorthalidone 25, lasix 40, amiloride, clonidine 0.1 bid, hydralazine 50 tid - resume home meds - volume management per HD Acute on chronic hypoxic respiratory failure: requiring 4L O2 (home 2L) to maintain sats >88% - supplemental O2, wean as able - IS - volume management as above - walk test prior to discharge ESRD: on HD TThS, neph as above COPD: home inhalers CAD, HLD: home ASA, Plavix, statin, niacin, zetia DM2: home insulin pump Morbid obesity: BMI 42 PPx: sqh Tele: yes Activity: up ad macario FEN: renal ADA 1.5L, no MIVF Lines: PIV Consults: Neph Code: Full Dispo: Obs for CHF needing HD, anticipate 1-2 days, will be homegoing
[2019-03-22] MEDS: amLODIPine 5 MG TABLET PO SCH (08:50)
[2019-03-22] MEDS: hydrALAZINE 25 MG TABLET PO SCH ×3 (08:50→21:15)
[2019-03-22] MEDS: cloNIDine HCl 0.1 MG TABLET PO SCH ×2 (08:51→21:15)
[2019-03-22] MEDS: Aspirin Enteric Coated 81 MG Tablet PO SCH (08:51)
[2019-03-22] MEDS ORDERED: Furosemide 40 MG TABLET PO SCH (09:00)
[2019-03-22] MEDS ORDERED: 0.9 % Sodium Chloride 250 ML IVC PRN (09:06)
[2019-03-22] MEDS ORDERED: 0.9 % Sodium Chloride 1,000 ML PRIME SCH (09:15)
[2019-03-22 09:42] LABS: Hepatitis B Surface Antibody 48.24 mIU/mL
[2019-03-22 09:53] LABS: Hepatitis B Surface Antigen Nonreactive (Nonreactive)
[2019-03-22] MEDS ORDERED: D5% in Water 1,000 ML IVC PRN (10:12)
[2019-03-22] MEDS ORDERED: Dextrose Gel 15 GM/37.5 ML TUBE PO PRN ×2 (10:12)
[2019-03-22] MEDS ORDERED: *HR* Dextrose 50 % in Water (Syg) 50 ML SYRINGE IVP PRN (10:12)
[2019-03-22] MEDS: Insulin LISPRO 300 UNITS/3 ML VIAL SQ SCH ×2 (12:07→17:41)
[2019-03-22] MEDS: Insulin DETEMIR 100 UNIT/ML X5UNITS SQ SCH ×2 (12:07→21:17)
--- NOTE | 2019-03-22 12:27 | Nephrology Consult Note ---
Date of Encounter: 03/22/19 Time of Encounter: 12:25 Assessment and Plan (1) Acute kidney injury superimposed on chronic kidney disease Current Visit: No Status: Acute Patient has a diagnosis of acute kidney injury on chronic kidney disease, that is likely end-stage renal disease. He is receiving dialysis via a left forearm fistula on a Sunday schedule at the [facility] under the direction of [facility]. He presents with hypertensive urgency manifested by shortness of breath from CHF exacerbation. He is improving with volume removal. We will prescribe his usual dialysis session, however, we will remove extra fluid to help improve his blood pressure and respiratory status. HD TRS. Renal vitamins. Renal dose medications. Renal diet. Additional dialysis and ultrafiltration as needed. He was seen on dialysis. (2) CHF (congestive heart failure), NYHA class III Current Visit: Yes Status: Acute Removing fluid with dialysis. Patient in with acute respiratory failure requiring submental oxygen secondary to volume overload from CHF exacerbation associated with hypertensive emergency. He was urgently dialyzed and I saw him on dialysis and he was feeling better. Patient was critically ill but seems to be doing better with treatment. 31 minutes spent critical care management of this patient. Qualifiers: Congestive heart failure chronicity: unspecified Qualified Code(s): I50.20 - Unspecified systolic (congestive) heart failure (3) CHF exacerbation Current Visit: Yes Status: Acute Qualifiers: Heart failure type: unspecified Qualified Code(s): I50.9 - Heart failure, unspecified (4) Anemia Current Visit: No Status: Acute Transfuse) primary team. Qualifiers: Anemia type: iron deficiency Qualified Code(s): D50.8 - Other iron deficiency anemias (5) Hypertensive emergency Current Visit: No Status: Acute We will remove fluid with dialysis. resume home medications. (6) DM2 (diabetes mellitus, type 2) Current Visit: No Status: Chronic Per the primary team. 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 History of Present Illness - Reason for Consult Consult date: 03/22/19 end stage renal disease - Chief Complaint esrd - History of Present Illness Mr. Frederick is a 59-year-old man with a history of end-stage renal disease who dialyzes on a Sunday schedule. He presents to the emergency department with shortness of breath that has been progressive over 2-3 days. The patient reports his last dialysis was prior to admission. He denies any chest pain, nausea, vomiting, or lightheadedness. He also denies having fevers. I was contacted by the emergency department and orders were written for dialysis. The patient was seen on dialysis and reports that shortly after starting dialysis that his breathing has improved. Past Med Surg Social Fam HX - Past Medical History Medical history: arthritis, CHF, coronary artery disease, CVA, diabetes, hyperlipidemia, hypertension, myocardial infarction, renal disease Additional medical history: color blind. stage III renal failure. fistula LFA, perma cath right chest Psychiatric history: no psych history - Past Surgical History Surgical History: cataract - Social History Smoking Status: Former smoker Smokeless Tobacco Status: No Alcohol use: none Drug use: none - Family History Brother Adopted: No Family Member Ethnicity: Non- Living Status: Hx Family Cardiac Disorders: Yes (CABG, valve replacement) Hx Family Respiratory Disorders: No Hx Family Cancer: Yes (Hodgkins dz) Hx Family GI Disorders: No Hx Family Endocrine Disorder: No Hx Family Neuromuscular Disorders: No Hx Family Neurologic Disorders: No Hx Family HEENT Disorders: Yes (blind in one eye) Hx Family Autoimmune Disorders: No Medications and Allergies Amlodipine Besylate 10 mg PO DAILY 03/29/16 [History] Atorvastatin [Lipitor] 40 mg PO HS 03/29/16 [History] Losartan Potassium [Cozaar] 100 mg PO DAILY 03/29/16 [History] Potassium Chloride [Klor-Con Sprinkle] 20 meq PO TID 03/29/16 [History] Aspirin [Lo-Dose Aspirin EC] 81 mg PO DAILY 05/26/17 [History] BuPROPion XL (24 HR) [Wellbutrin Xl] 150 mg PO DAILY 05/26/17 [History] Hydralazine HCl 50 mg PO TID #90 tablet 05/30/17 [Rx] Clopidogrel [Plavix] 75 mg PO DAILY 08/09/17 [History] Tamsulosin HCl [Flomax] 0.4 mg PO DAILY 08/09/17 [History] Acetaminophen [Tylenol Arthritis] 1,300 mg PO Q8H PRN 10/08/17 [History] Cholecalciferol (D-3) [Vitamin D] 5,000 unit PO DAILY 10/08/17 [History] Niacin [Niaspan] 1,000 mg PO DAILY 10/08/17 [History] Subcutaneous Insulin Pump [T:Slim] 1 each MC AD 10/08/17 [History] Ezetimibe [Zetia] 10 mg PO DAILY 01/08/18 [History] Chlorthalidone 25 mg PO DAILY 01/29/18 [History] Fenofibrate Nanocrystallized [Triglide] 160 mg PO DAILY 01/29/18 [History] Levothyroxine [Synthroid] 37.5 mcg PO DAILY 01/29/18 [History] Ferrous Sulfate 325 mg PO DAILY@0800 #30 tablet 02/06/18 [Rx] Isosorbide DInitrate [Isordil] 10 mg PO TIDAC #90 tablet 02/06/18 [Rx] Carvedilol [Coreg] 25 mg PO BID 02/22/18 [History] Chlorthalidone 25 mg PO DAILY 02/22/18 [History] Furosemide [Lasix] 40 mg PO DAILY #14 tablet 02/22/18 [Rx] aMILoride [Midamor] 10 mg PO DAILY #30 tablet 02/22/18 [Rx] cloNIDine HCl [CloNIDine HCl] 0.1 mg PO BID 02/22/18 [History] Allergy/AdvReac Type Severity Reaction Status Date / Time Penicillins Allergy Hives Verified 02/18/18 20:36 Review of Systems All Systems: reviewed and no additional remarkable complaints except as stated (As documented by the history of present illness) Exam - Vital Signs Vital signs: Initial Vital Signs Temp Pulse Resp BP Pulse Ox 97.6 F 87 24 228/95 85 03/22/19 02:45 03/22/19 02:45 03/22/19 02:45 03/22/19 02:45 03/22/19 02:45 Vital Signs - Last 8 Hours Temp Pulse Resp BP Pulse Ox 03/22/19 08:21 97.8 F 73 17 200/92 96 03/22/19 07:42 80 24 187/93 91 03/22/19 06:10 87 18 191/90 93 03/22/19 05:02 82 20 190/98 94 03/22/19 04:45 82 18 193/95 96 Intake and Output 03/21/19 03/22/19 03/22/19 23:59 07:59 15:59 Intake Total 60 / 60 Balance 60 / 60 Intake: Oral 60 / 60 Other: Weight 126.552 kg Blood Glucose* 261 Patient Weight 03/22/19 23:59 Weight 126.552 kg - General Appearance General appearance: well-developed, well-nourished, obese EENT: ATNC Neck: supple Respiratory: course breath sounds Cardiology: edema, regular rate - Dialysis Access Dialysis Vascular Access: Arteriovenous Fistula (Left forearm fistula) Gastrointestinal: no tenderness, obese Integumentary: warm and dry Neurologic: alert and oriented x3 Musculoskeletal: no cyanosis Psychiatric: mood/affect appropriate Results - Lab Results 03/22/19 03:47 03/22/19 03:47 Most recent lab results 03/22/19 03:47 Calcium 9.0 Consult Discharge Plan - Plan Referrals: NONE,PCP [Primary Care Provider] -
[2019-03-22] MEDS: aMILoride 5 MG TABLET PO SCH (15:04)
[2019-03-22] MEDS: *HR* Heparin 5,000 UNIT/ML VIAL SQ SCH ×2 (15:05→21:15)
[2019-03-22] MEDS ORDERED: Insulin LISPRO 300 UNITS/3 ML VIAL SQ SCH (21:00)
--- NOTE | 2019-03-23 00:35 | Electrocardiograph Report ---
[facility] [employer] Test Date: 2019-03-22 Pat Name: Arpit Frederick Department: [id number] Room: 2A36 Gender: M Last Puller: : 1960 Requested By: Marianna Moran Order Number: [id number] Reading MD: Lucrecia Young Measurements Intervals [place] Rate: 74 P: 36 OH: 208 QRS: -14 QRSD: 108 T: 114 QT: 390 QTc: 433 Interpretive Statements Sinus rhythm Multiple ventricular premature complexes Borderline prolonged [place] interval RSR' in V1 or V2, probably normal variant LVH with secondary repolarization abnormality Electronically Signed On 03-23-2019 0:33:49 EDT by Lucrecia Young
[2019-03-23] MEDS: *HR* Heparin 5,000 UNIT/ML VIAL SQ SCH (05:39)
--- NOTE | 2019-03-23 07:44 | Internal Med Progress Note ---
Hospitalist Progress Note - Encounter Date of Encounter: 03/23/19 - Exam Vitals: Temp Pulse Resp BP Pulse Ox 97.9 F 58 16 143/69 99 03/23/19 03:40 03/23/19 03:40 03/23/19 03:40 03/23/19 03:40 03/23/19 03:40 - Time Spent with Patient Total time spent is greater than 50% in coordination of care (as documented) at patient's floor/unit and/or counseling patient: Internal Medicine: Result - Labs CBC & Chem 7: 03/22/19 03:47 03/22/19 03:47 - ABG Interpretation ABG results: PT/INR, D-dimer PT 11.4 Seconds (9.4-12.1) 03/22/19 03:47 Consult Discharge Plan - Plan Referrals: NONE,PCP [Primary Care Provider] -
[2019-03-23] MEDS: hydrALAZINE 25 MG TABLET PO SCH (08:28)
[2019-03-23] MEDS: cloNIDine HCl 0.1 MG TABLET PO SCH (08:29)
[2019-03-23] MEDS: Aspirin Enteric Coated 81 MG Tablet PO SCH (08:29)
[2019-03-23] MEDS: aMILoride 5 MG TABLET PO SCH (08:29)
[2019-03-23] MEDS: Insulin DETEMIR 100 UNIT/ML X5UNITS SQ SCH (08:30)
[2019-03-23] MEDS: Insulin LISPRO 300 UNITS/3 ML VIAL SQ SCH ×2 (08:30→12:11)
[2019-03-23] MEDS: amLODIPine 5 MG TABLET PO SCH (08:30)
[2019-03-23] MEDS ORDERED: Furosemide 40 MG/4 ML VIAL IVP SCH (09:00)
--- NOTE | 2019-03-23 09:37 | Nephrology Progress Note ---
Date of Encounter: 03/23/19 Time of Encounter: 09:34 - Assessment and Plan (1) Acute kidney injury superimposed on chronic kidney disease Current Visit: No Status: Acute Patient has a diagnosis of acute kidney injury on chronic kidney disease, that is likely end-stage renal disease. He is receiving dialysis via a left forearm fistula on a Sunday schedule at the [facility] under the direction of [facility]. He presents with hypertensive urgency manifested by shortness of breath from CHF exacerbation. He improved with volume removal. HD TRS. Renal vitamins. Renal dose medications. Renal diet. Additional dialysis and ultrafiltration as needed. No need for dialysis today. If he stays until Sunday I plan to perform another ultrafiltration session. From a renal standpoint he can resume outpatient dialysis and if needed he can receive outpatient extra ultra filtration sessions if needed. (2) CHF (congestive heart failure), NYHA class III Current Visit: Yes Status: Acute Qualifiers: Congestive heart failure chronicity: unspecified Qualified Code(s): I50.20 - Unspecified systolic (congestive) heart failure (3) CHF exacerbation Current Visit: Yes Status: Acute Qualifiers: Heart failure type: unspecified Qualified Code(s): I50.9 - Heart failure, unspecified (4) Anemia Current Visit: No Status: Acute Qualifiers: Anemia type: iron deficiency Qualified Code(s): D50.8 - Other iron deficiency anemias (5) Hypertensive emergency Current Visit: No Status: Acute (6) DM2 (diabetes mellitus, type 2) Current Visit: No Status: Chronic Qualifiers: 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 He feels better. He states his breathing is back to baseline. His review of system otherwise is stable or negative. Objective - Vital Signs Vital signs: Vital Signs Temp Pulse Resp BP Pulse Ox 03/23/19 08:44 94 03/23/19 07:50 98.4 F 72 20 153/68 94 03/23/19 03:40 97.9 F 58 16 143/69 99 03/23/19 00:23 98.3 F 63 14 144/73 97 03/22/19 20:57 98.2 F 69 18 152/73 98 03/22/19 16:45 98.1 F 67 17 153/75 97 03/22/19 14:42 97.9 F 17 151/81 03/22/19 14:25 136/62 03/22/19 14:10 122/66 03/22/19 13:55 114/62 03/22/19 13:40 107/65 03/22/19 13:25 109/67 03/22/19 13:10 114/66 03/22/19 12:55 121/66 03/22/19 12:40 126/72 03/22/19 12:25 134/58 03/22/19 12:10 125/76 03/22/19 11:55 130/68 03/22/19 11:40 121/71 03/22/19 11:25 136/69 03/22/19 11:10 131/67 03/22/19 10:55 97.4 F L 18 136/71 Intake and Output 03/22/19 03/23/19 03/23/19 23:59 07:59 15:59 Intake Total 300 / 300 Balance 300 / 300 Intake: Oral 300 / 300 Other: Meal Breakfast Percent of Meal Consumed 100% # Voids 1 Weight 124.4 kg Blood Glucose* 231 231 Patient Weight 03/23/19 23:59 Weight 124.4 kg - General Appearance General appearance: Present: well-developed, well-nourished EENT: Present: ATNC Neck: Present: supple Cardiology: Present: edema, regular rate Integumentary: Present: warm and dry Neurologic: Present: alert and oriented x3 Psychiatric: Present: mood/affect appropriate - Lab 03/22/19 03:47 03/22/19 03:47 Consult Discharge Plan - Plan Referrals: NONE,PCP [Primary Care Provider] -
[2019-03-23 10:07] LABS: Hematocrit 28.2 % (37.5-50.1); Hemoglobin 9.4 g/dL (12.9-16.9); Mean Corpuscular HGB Conc 33.3 g/dL (31.6-35.5); Mean Corpuscular Hemoglobin 28.4 pg (28.0-33.3); Mean Corpuscular Volume 85.2 fL (83.0-100.0); Platelet Count 197 K/mcL (140-400); Red Blood Count 3.31 M/mcL (4.19-5.50); Red Cell Distribution Width 14.4 % (11.5-14.5); White Blood Count 5.9 K/mcL (4.3-11.1)
[2019-03-23 10:26] LABS: Calcium 9.3 mg/dL (8.6-10.3); Magnesium 1.9 mg/dL (1.6-2.6); Phosphorous 4.2 mg/dL (2.7-4.5); Potassium 3.4 mEq/L (3.5-5.1)
[2019-03-23 10:44] VITALS: BP 113/39
[2019-03-23] MEDS ORDERED: Potassium Chloride Elixir 20 MEQ/15 ML UDC PO SCH (11:15)
--- NOTE | 2019-03-23 11:49 | Discharge Summary ---
Date of Encounter: 03/23/19 Time of Encounter: 11:47 - Discharge Diagnosis (1) ESRD (end stage renal disease) Priority: Primary Status: Acute Assessment and Plan: 59 M w hx ESRD on HD TThS, HFpEF, CAD, COPD on 2L, HTN, DM2, morbid obesity, who p/w SOB. Symptoms progressively worsening over last 2-3 days, worse when lying flat or with any exertion. Says his legs are swollen but about the same as usual. Is compliant with HD and was dialyzed on . Also still makes urine for which he takes lasix and chlorthalidone. No fevers, no dizziness or lightheadedness, no CP, no cough, no change in sputum production. He follows with [facility] Art. In the ED, pt vitals remarkable for RR 24, BP ~200s/90s. BNP to 1000s. CXR showing pulm vasc congestion and edema. Given Lasix IV, blood cultures checked, and pt admitted. He was admitted for acute worsening of chronic diastolic CHF with volume overload secondary to ESRD. He was given one dose of lasix in the ER and taken for dialysis. He reportedly had 5kg taken off during dialysis and improved remarkably. He was seen by renal the next day and okayed for discharge. 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 Frederick is a 59 year old male - Time Spent with Patient Total time spent providing and/or coordinating discharge services: - Discharge Medications Prescriptions: Continued Atorvastatin [Lipitor] 40 mg PO HS Potassium Chloride [Klor-Con Sprinkle] 20 meq PO TID Amlodipine Besylate 10 mg PO DAILY Aspirin [Lo-Dose Aspirin EC] 81 mg PO DAILY Hydralazine HCl 50 mg PO TID #90 tablet Clopidogrel [Plavix] 75 mg PO DAILY Tamsulosin HCl [Flomax] 0.4 mg PO DAILY Subcutaneous Insulin Pump [T:Slim] 1 each MC AD Acetaminophen [Tylenol Arthritis] 1,300 mg PO Q8H PRN PRN Reason: Pain Ezetimibe [Zetia] 10 mg PO DAILY Fenofibrate Nanocrystallized [Triglide] 160 mg PO DAILY Levothyroxine [Synthroid] 75 mcg PO DAILY Ferrous Sulfate 325 mg PO DAILY@0800 #30 tablet aMILoride [Midamor] 10 mg PO DAILY #30 tablet Chlorthalidone 25 mg PO DAILY Furosemide [Lasix] 40 mg PO DAILY #14 tablet No Action Alprazolam [Xanax] 1 mg PO BID Calcium Acetate [Phos-LO] 1,334 mg PO TIDWM Carvedilol 3.125 mg PO BID Losartan Potassium 50 mg PO DAILY Sertraline [Zoloft] 150 mg PO DAILY Tiotropium Br/Olodaterol HCl [Stiolto Respimat Inhal [place]] 2 puff IH DAILY Zolpidem Tartrate 5 mg PO HS PRN PRN Reason: Sleep Home Medications: Amlodipine Besylate 10 mg PO DAILY 03/29/16 [History] Atorvastatin [Lipitor] 40 mg PO HS 03/29/16 [History] Potassium Chloride [Klor-Con Sprinkle] 20 meq PO TID 03/29/16 [History] Aspirin [Lo-Dose Aspirin EC] 81 mg PO DAILY 05/26/17 [History] Hydralazine HCl 50 mg PO TID #90 tablet 05/30/17 [Rx] Clopidogrel [Plavix] 75 mg PO DAILY 08/09/17 [History] Tamsulosin HCl [Flomax] 0.4 mg PO DAILY 08/09/17 [History] Acetaminophen [Tylenol Arthritis] 1,300 mg PO Q8H PRN 10/08/17 [History] Subcutaneous Insulin Pump [T:Slim] 1 each MC AD 10/08/17 [History] Ezetimibe [Zetia] 10 mg PO DAILY 01/08/18 [History] Fenofibrate Nanocrystallized [Triglide] 160 mg PO DAILY 01/29/18 [History] Levothyroxine [Synthroid] 75 mcg PO DAILY 01/29/18 [History] Ferrous Sulfate 325 mg PO DAILY@0800 #30 tablet 02/06/18 [Rx] Chlorthalidone 25 mg PO DAILY 02/22/18 [History] Furosemide [Lasix] 40 mg PO DAILY #14 tablet 02/22/18 [Rx] aMILoride [Midamor] 10 mg PO DAILY #30 tablet 02/22/18 [Rx] Alprazolam [Xanax] 1 mg PO BID 03/23/19 [History] Calcium Acetate [Phos-LO] 1,334 mg PO TIDWM 03/23/19 [History] Carvedilol 3.125 mg PO BID 03/23/19 [History] Losartan Potassium 50 mg PO DAILY 03/23/19 [History] Sertraline [Zoloft] 150 mg PO DAILY 03/23/19 [History] Tiotropium Br/Olodaterol HCl [Stiolto Respimat Inhal [place]] 2 puff IH DAILY 03/23/19 [History] Zolpidem Tartrate 5 mg PO HS PRN 03/23/19 [History] Allergies/Adverse Reactions: Allergy/AdvReac Type Severity Reaction Status Date / Time Penicillins Allergy Hives Verified 02/18/18 20:36 Date of admission: 03/22/19 07:44 Primary care physician: PCP NONE Consults: 03/22/19 07:19 Consult to Nephrology [CONS] Routine Consulting Provider: [facility]/MEG/TODD/FIORELLA Reason for Consult: ESRD, fluid overloaded, needs HD Call Completed: Yes 03/22/19 09:15 Consult to Dialysis [CONS] ONCE 03/22/19 09:18 Consult to Patternmaker Helper [CONS] Routine Reason for SW Consult: patient wants help with getting HCAP for assistance with bills - Constitutional Vitals: Temp Pulse Resp BP Pulse Ox 99.0 F 60 18 113/39 91 03/23/19 10:39 03/23/19 10:39 03/23/19 10:39 03/23/19 10:39 03/23/19 10:39 Exam: General: NAD, good eye contact, relatively well appearing, obese Head: Atraumatic, normocephalic. Face symmetric Eyes: EOMI, sclerae anicteric ENT: Mucous membranes moist. Normal oral mucosa. Trachea midline. Thoracic: No visible chest wall deformities. Does have bibasilar crackles to lower 1/3 lung yepez Cardio: Normal S1 and S2, regular rate and rhythm Abdomen: Soft, nontender, nondistended, obese Extremities: Warm, well perfused. DP pulses palpable. No clubbing, cyanosis. Does have edema b/l legs and some dependent thigh edema, none in body wall Skin: Intact. No rashes, bruises, or ulcers. Has LUE AVF Neuro: Awake, fully oriented. Good memory, concentration, attention. Speech fluent. CN II-XII grossly intact. Strength 5/5 in b/l UE and LE - Patient Status Disposition: Home, Self-Care Condition: Good - Discharge Instructions Instructions: Heart Failure (DC) Follow Up With: NONE,PCP [Primary Care Provider] -
== END 2019-03-23 12:39 | disposition home or self-care (01) ==
LOC: SUATTDRO → EMEROOARM 02:45 → 2ANU 02:45 → SUATTDRO 07:44 → 2ANU 08:01
PROVIDERS: ADMIT Internal Medicine; ATTEND Student in an Organized Health Care Education/Training Program

== ENCOUNTER 2022-02-06 22:12 | Observation (INO) ==
[2022-02-07] MEDS ORDERED: Prochlorperazine 10 MG/2 ML VIAL IVP ONE (02:31)
[2022-02-07 02:50] LABS: Basophils % 0.7 %; Hemoglobin 12.7 g/dL (12.9-16.9); Red Cell Distribution Width 13.2 % (11.5-14.5); Segmented Neutrophils % 64.4 %
[2022-02-07 02:52] LABS: Eosinophils # 0.1 K/mcL (0.0-0.6); Eosinophils % 1.8 %; Immature Granulocytes % 0.2 % (0-4); Immature Platelets 3.4 % (1.1-6.1); Lymphocytes # 1.4 K/mcL (0.6-4.6); Lymphocytes % 24.2 %; Mean Corpuscular HGB Conc 34.3 g/dL (31.6-35.5); Mean Corpuscular Hemoglobin 29.8 pg (28.0-33.3); Mean Corpuscular Volume 86.9 fL (83.0-100.0); Monocytes # 0.5 K/mcL (0.0-1.3); Monocytes % 8.7 %; Neutrophils # 3.7 K/mcL (1.6-8.9); Platelet Count 141 K/mcL (140-400); Red Blood Count 4.26 M/mcL (4.19-5.50); White Blood Count 5.7 K/mcL (4.3-11.1)
[2022-02-07 03:04] LABS: INR 1.5; Prothrombin Time 17.1 Seconds (9.4-12.1)
[2022-02-07 03:06] LABS: Activated Partial Thrombo Time 34.8 Seconds (26.0-36.0)
[2022-02-07 03:12] LABS: Albumin 3.8 g/dL (3.5-5.7); Albumin/Globulin Ratio 1.5 (1.1-2.2); Bilirubin,Direct 0.1 mg/dL (0.0-0.2); Bilirubin,Indirect 0.3 mg/dL (0.0-1.0); Bilirubin,Total 0.4 mg/dL (0.3-1.0); Calcium 8.6 mg/dL (8.6-10.3); Globulin 2.5 g/dL (2.4-3.5); Potassium 3.5 mEq/L (3.5-5.1); Total Protein 6.3 g/dL (6.4-8.9)
[2022-02-07 03:18] LABS: Troponin I 0.07 ng/mL (< 0.04)
[2022-02-07] MEDS ORDERED: Ondansetron ODT 4 MG TAB.RAPDIS SL PRN (04:57)
[2022-02-07] MEDS ORDERED: Naloxone 0.4 MG/ML INJ IVP PRN (04:57)
[2022-02-07] MEDS ORDERED: Melatonin 3 MG TABLET PO PRN (04:57)
[2022-02-07] MEDS ORDERED: D5% in Water 1,000 ML IVC PRN (05:04)
[2022-02-07] MEDS ORDERED: *HR* Dextrose 50 % in Water (Syg) 50 ML SYRINGE IVP PRN (05:04)
[2022-02-07] MEDS ORDERED: Dextrose Gel 15 GM/37.5 ML TUBE PO PRN ×2 (05:04)
[2022-02-07] MEDS: niCARdipine 20 MG/200 ML MLS IVC SCH ×2 (05:43→09:25)
[2022-02-07] MEDS ORDERED: Insulin LISPRO 300 UNITS/3 ML VIAL SUBQ SCH ×2 (07:30→21:00)
[2022-02-07] MEDS ORDERED: hydrALAZINE 25 MG TABLET PO SCH (08:00)
[2022-02-07] MEDS: amLODIPine 5 MG TABLET PO SCH (09:23)
[2022-02-07] MEDS: Aspirin 81 MG TAB.CHEW PO SCH (09:23)
[2022-02-07] MEDS: cloNIDine HCL 0.1 MG TABLET PO SCH ×3 (09:23→21:29)
[2022-02-07] MEDS ORDERED: Ethyl Chloride Spray Bottle (104 SPRAY/BOTTLE) TP PRN (09:42)
[2022-02-07] MEDS ORDERED: 0.9 % Sodium Chloride 250 ML IVC PRN (09:42)
[2022-02-07] MEDS ORDERED: 0.9 % Sodium Chloride 2,000 ML PRIME SCH (09:45)
[2022-02-07 12:15] LABS: Albumin 4.2 g/dL (3.5-5.7); Calcium 9.1 mg/dL (8.6-10.3); Phosphorous 5.2 mg/dL (2.7-4.5); Potassium 3.4 mEq/L (3.5-5.1)
[2022-02-07 12:24] LABS: Hepatitis B Surface Antibody 245.28 mIU/mL
[2022-02-07] MEDS: hydrALAZINE 25 MG TABLET PO SCH ×2 (12:26→20:27)
[2022-02-07 12:36] LABS: Hepatitis B Surface Antigen Nonreactive (Nonreactive)
[2022-02-07] MEDS ORDERED: niCARdipine 20 MG/200 ML MLS IVC SCH (13:52)
[2022-02-07] MEDS: *HR* Heparin 5,000 UNIT/ML VIAL SQ SCH (17:45)
[2022-02-07] MEDS ORDERED: *HR* Labetalol 20 MG/4 ML SYRINGE IVP ONE (23:22)
[2022-02-08] MEDS ORDERED: *HR* Labetalol 20 MG/4 ML SYRINGE IVP ONE (00:44)
[2022-02-08 03:26] LABS: Basophils # 0.1 K/mcL (0.0-0.2); Basophils % 0.7 %; Eosinophils % 0.4 %; Hemoglobin 12.9 g/dL (12.9-16.9); Immature Granulocytes % 0.4 % (0-4); Lymphocytes # 0.9 K/mcL (0.6-4.6); Mean Corpuscular HGB Conc 33.9 g/dL (31.6-35.5); Mean Corpuscular Hemoglobin 29.7 pg (28.0-33.3); Mean Corpuscular Volume 87.6 fL (83.0-100.0); Mean Platelet Volume 10.5 fL (9.4-12.4); Monocytes # 0.5 K/mcL (0.0-1.3); Monocytes % 7.4 %; Neutrophils # 5.6 K/mcL (1.6-8.9); Platelet Count 150 K/mcL (140-400); Red Blood Count 4.34 M/mcL (4.19-5.50); Red Cell Distribution Width 13.2 % (11.5-14.5); Segmented Neutrophils % 79.1 %; White Blood Count 7.1 K/mcL (4.3-11.1)
[2022-02-08 03:44] LABS: Albumin 3.9 g/dL (3.5-5.7); Albumin/Globulin Ratio 1.6 (1.1-2.2); Bilirubin,Total 0.6 mg/dL (0.3-1.0); Calcium 8.7 mg/dL (8.6-10.3); Globulin 2.4 g/dL (2.4-3.5); Phosphorous 3.7 mg/dL (2.7-4.5); Potassium 3.4 mEq/L (3.5-5.1); Total Protein 6.3 g/dL (6.4-8.9)
[2022-02-08 03:54] LABS: Troponin I 0.09 ng/mL (< 0.04)
[2022-02-08] MEDS: hydrALAZINE 25 MG TABLET PO SCH ×2 (04:17→07:29)
[2022-02-08] MEDS: *HR* Heparin 5,000 UNIT/ML VIAL SQ SCH (06:04)
[2022-02-08] MEDS ORDERED: Famotidine 20 MG TABLET PO PRN (07:21)
[2022-02-08] MEDS ORDERED: *HR* Warfarin 5 MG TABLET PO SCH (07:30)
[2022-02-08] MEDS ORDERED: ALPRAZolam 1 MG TABLET PO PRN (08:09)
[2022-02-08] MEDS ORDERED: BuPROPion SR (12 HR) 150 MG TABLET PO SCH (09:00)
[2022-02-08] MEDS ORDERED: carvediloL 25 MG TABLET PO SCH (09:00)
[2022-02-08] MEDS ORDERED: Insulin Pump Cart,Cont Inf,Rf [Insulin Pump] 1 EACH SUBQ SCH (09:00)
[2022-02-08] MEDS: Aspirin 81 MG TAB.CHEW PO SCH (09:30)
[2022-02-08] MEDS: amLODIPine 5 MG TABLET PO SCH (09:30)
[2022-02-08] MEDS: cloNIDine HCL 0.1 MG TABLET PO SCH (09:30)
[2022-02-08 10:47] LABS: INR 1.2; Prothrombin Time 13.8 Seconds (9.4-12.1)
[2022-02-08 11:37] VITALS: TEMP 97.9
[2022-02-08 12:13] VITALS: BP 133/69; PULSE 68; O2SAT 95
[2022-02-08] MEDS ORDERED: *HR* Warfarin 5 MG TABLET PO ONE (18:00)
[2022-02-08] MEDS ORDERED: Warfarin perPT PO PRN (18:00)
[2022-02-09] MEDS ORDERED: *HR* Warfarin 5 MG TABLET PO SCH (07:29)
== END 2022-02-08 12:55 | disposition home or self-care (01) ==
LOC: 2NNU 22:12 → EMEROOARM 22:12 → SUATTDRO 02-07 06:50 → 2NNU 02-07 07:46
PROVIDERS: ADMIT Internal Medicine; ATTEND Internal Medicine